=== PATIENT | male | born 1935 | race Caucasian/White ===

== ENCOUNTER 2018-10-02 07:57 | Inpatient (IN) | payer OTHER ==
[2018-09-30 15:38] LABS: Absolute Lymphocytes (CBC) 0.8 K/uL (0.7-4.9); Absolute Monocytes 0.3 K/uL (0.1-1.3); Absolute Neutrophil 4.5 K/uL (1.8-8.0); Basophils % 0.5 % (0-1.3); Hematocrit 37.2 % (39.6-49.0); Lymphocytes % 14.1 % (15.3-44.8); MPV 8.9 fL (7.6-11.3); Monocytes % 5.9 % (3.3-12.3); RBC Red Blood Cell Count 3.65 M/uL (4.33-5.43)
[2018-09-30 15:49] LABS: Potassium 4.6 mmol/L (3.5-5.1)
--- OUTSIDE RECORDS SUMMARY | 2018-10-02 08:00 | XMS REPORT | Continuity of Care Document ---
:1935 Author Organization Interface Problems Problem Status Onset Classification Date Comments Source Date Reported M54.5 - LOW BACK Active 02/28/20 [facility] PAIN 17 [place] Pneumococcus Resolved Problem 03/02/2017 [facility] infection [place] Simple obesity Active Problem 03/02/2017 [facility] Medications Medication Details Route Status Patient Ordering Order Source Instructions Provider Date Allergies, Adverse Reactions, Alerts Substance Category Reaction Severity Reaction Status Date Comments Source type Reported Bactrim Assertion Drug Active [facility] allergy [facility] morphine Assertion Drug Active [facility] allergy [place] Immunizations Immunization Date Given Site Status Last Updated Comments Source Results Order Results Value Reference Date Interpretation Comments Source Name Range Spine Spine EXAM: XR LUMBAR SPINE 4 VIEWS 02/27 - [facility] lumbar lumbar /2016 - [facility] flex/ext flex/ext 2 view 2 view DX DX DATE: 02/27/2017 3:04 PM CDT Read by: Bradley Andino MD Dictated Date/time: 02/27/17 15:35 Electronically Signed by: Bradley Andino MD 02/27/17 15:41 FINAL REPORT INDICATION: - M54.5 Low back pain M54.16 Radiculopathy, lumbar region COMPARISON: None TECHNIQUE: AP view, lateral views in neutral position, flexion and extension, of the lumbar spine FINDINGS: 5 lumbar type, non-rib bearing vertebral bodies are present. There is grade 1 anterolisthesis of L4 over L5 measuring approximately 3 mm without significant motion on flexion or extension. Moderate L4-5 disc height loss. Multilevel endplate sclerosis and marginal osteophytes are present. 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 Multilevel fa cet arthropathy, most pronounced in the lower lumbar spine. Vertebral body heights and remaining disk heights are maintained. There is diffuse osteopenia. Incompletely imaged bilateral hip arthroplasty. Gas-distended bowel loop is seen in the mid abdomen. Atherosclerotic vascular calcifications are present. IMPRESSION: Multilevel degenerative changes with moderate L4-5 disc height loss and grade 1 anterolisthesis. No significant motion on flexion or extension. Vital Signs Vital Sign Value Date Comments Source Encounters Location Location Encounter Encounter Reason Attending ADM DC Status Source Details Type Number For Provider Date Date Visit Outpatient [id number] ABRIL NICE 02/26 [place] [facility] [id number] GWENDOLYN MONTALVO 02/27 Active [facility] Out[facility] Di[facility] [id number] Gwendolyn Montalvo 02/27 02/28 [facility] [place] [facility] [id number] GWENDOLYN MONTALVO 03/12 Active [place] Procedures Procedure Code Date Perfomer Comments Source AVR - Aortic valve [id number] [facility] [place] [id number] [place] [id number] [place] [facility] [id number] [facility] [place]
--- OUTSIDE RECORDS SUMMARY | 2018-10-02 08:00 | XMS REPORT ---
:1935 [facility] [address] [place] [address] Dr. [address] [place] [id number] Care Team Providers Name Role Phone Unavailable Unavailable Unavailable Problems This patient has no known problems. Allergies, Adverse Reactions, Alerts This patient has no known allergies or adverse reactions. Medications This patient has no known medications.
--- OUTSIDE RECORDS SUMMARY | 2018-10-02 08:00 | XMS REPORT | Clinical Summary ---
:1935 Author Organization [facility] Address [address] [place] [address] Care Team Providers Name Role Phone Asked, No Pcp Primary Care Provider Unavailable Allergies Not on File Medications Not on file Active Problems Not on file Social History Tobacco Use Types Packs/Day Years Used Date Never Assessed Sex Assigned at Date Recorded Not on file Job Start Date Occupation Industry Not on file Not on file Not on file Travel History Travel Start Travel End No recent travel history available. Last Filed Vital Signs Not on file Plan of Treatment Health Maintenance Due Date Last Done Comments SHINGLES VACCINES (#1) 1986 65+ PNEUMOCOCCAL VACCINE (1 of 2 - PCV13) 2001 PNEUMOCOCCAL POLYSACCHARIDE VACCINE AGE 65 AND OVER 2001 INFLUENZA VACCINE 12/17/2018 Results Not on fileafter 10/01/2017 Insurance Payer Benefit Plan / Group Subscriber ID Type Phone Address AETNA MEDICARE AETNA MEDICARE HMO/PPO [facility] xxxxxxxx HMO Advance Directives Patient has advance care planning documents on file. For more information, please contact:[place] [phone] [place] [address]
[2018-10-02] MEDS ORDERED: METRONIDAZOLE 500mg IVPB 500 MG/100 ML BAG IV ONE (08:21)
[2018-10-02] MEDS ORDERED: NA CHLORIDE 0.9% 1,000 ML ONE (08:21)
[2018-10-02] MEDS ORDERED: CEFOXITIN/SWI 1gm 1 GM/10 ML SYR ONE (08:45)
[2018-10-02] MEDS ORDERED: FENTANYL CITR 100 MCG/2 ML ONE ×2 (08:58→10:41)
[2018-10-02] MEDS ORDERED: PROPOFOL 200 MG/20 ML VIAL IV ONE (08:58)
[2018-10-02] MEDS ORDERED: LIDOCAINE 2% MPF 5 ML VIAL ONE (08:59)
[2018-10-02] MEDS ORDERED: ROCURONIUM 50 MG/5 ML VIAL IV ONE ×2 (09:00→10:15)
[2018-10-02] MEDS ORDERED: ONDANSETRON 4 MG/2 ML VIAL ONE (09:00)
[2018-10-02] MEDS: NA CHLORIDE 0.9% 1,000 ML ONE ×2 (11:54→12:04)
[2018-10-02] MEDS ORDERED: GLYCOPYRROLATE 0.2 MG/ML SYR ONE (12:51)
[2018-10-02] MEDS ORDERED: NEOSTIGMINE 1 MG/ML -10 ML VIAL ONE (12:52)
[2018-10-02] MEDS: HYDROMORPHONE HCL 2 MG/ML inj ONE ×4 (13:17→14:11)
[2018-10-02] MEDS ORDERED: GLUCAGON 1 MG/VIAL IM PRN (14:04)
[2018-10-02] MEDS ORDERED: D50W 25 GM/50 ML SYRINGE IV PRN (14:04)
[2018-10-02] MEDS: HYDROMORPHONE HCL 1 MG/ML INJ ONE ×2 (14:25→14:52)
[2018-10-02] MEDS ORDERED: ONDANSETRON 4 MG/2 ML VIAL IV PRN (15:00)
[2018-10-02] MEDS: HYDROMORPHONE/PCA 10 MG/50 ML SYR IV PRN (15:32)
[2018-10-02] MEDS: NACHLORIDE 0.45% 1,000 ML with POTASSIUM CL 20 MEQ IV SCH ×2 (15:33)
[2018-10-02] MEDS: INSULIN -REGULAR HUMAN 50 UNIT/0.5 ML ML SQ SCH ×2 (16:30→21:00)
[2018-10-02] MEDS: METRONIDAZOLE 500mg IVPB 500 MG/100 ML BAG IV SCH ×2 (18:23→23:09)
[2018-10-02] MEDS: CEFOXITIN/SWI 1gm 1 GM/10 ML SYR IV SCH ×2 (18:23→23:09)
[2018-10-02] MEDS ORDERED: NA CHLORIDE 0.9% 500 ML IV ONE (19:08)
[2018-10-02] MEDS ORDERED: NA CHLORIDE 0.9% 250 ML IV ONE ×2 (22:36→22:39)
--- NOTE | 2018-10-03 01:32 | OP ---
Date of Procedure: 10/02/2018 Surgeon: Rob Crenshaw MD Archivist: WILLY Raines. Preoperative Diagnoses: Hepatic flexure, cancer and polyp on the splenic flexure. Postoperative Diagnoses: Hepatic flexure, cancer and polyp on the splenic flexure with extensive adh esion. Procedures Performed: Diagnostic laparoscopy, extensive lysis of adhesion, exploratory laparotomy, m obilization of the splenic flexure, right hemicolectomy, and omentectomy. Estimated Blood Loss: 100 cc. Specimen: Right hemicolectomy. Findings: At the anastomotic site from the previous surgery patient had a cancer, margins were free, and on the splenic flexure side there was a 7 cm margin and the site of the polyp removal was seen. This was done in the frozen room. Anesthesia: General. Complication: None. The patient tolerated the procedure in stable condition, taken to Recovery in g ood general condition. Procedure In Detail: The patient was brought to the OR and placed in supine position. General anest hesia was begun. The patient was prepped and draped in usual sterile fashion. Marcaine 0.5% was inf iltrated everywhere. A laparoscopic incision was made. Then 1 cm left upper quadrant incision was m anne. Subcutaneous tissue divided. Fascia was identified and divided. A #1 Vicryl stay suture was p laced. Peritoneal cavity was entered with sharp and blunt dissection. A 12 mm trocar was placed int o the peritoneal cavity and a 5 mm trocar placed in the left lower quadrant under direct vision. Lap aroscopy revealed extensive adhesions on the right side of the abdomen as well as the midline and the se were mostly omental adhesions that were taken down with the ligature without difficulty. After al l the adhesions were taken down, I converted to an open with a midline incision from the epigastrium to just below the umbilicus. Subcutaneous tissue was divided. The fascia was identified and divided . Exploratory laparotomy revealed normal GE junction, normal stomach, normal small bowel all the way from the ligament of Treitz, the duodenal sweep all the way to the anastomotic site, which was in th e hepatic flexure from the previous surgery, and there was a small palpable hard mass there. This wa s encased in a lot of scar tissue. Posteriorly the transverse colon was within normal limits. There was a blue ink spot where the patient had been tattooed for where the polyp had been removed several times. It was a very large polyp to begin with and I discussed the case prior to surgery with Dr. Gordy [place], and he stated that if possible we should try to remove that because it may develop into canc er or there may be cancer that has not been diagnosed yet and there was no other evidence of disease seen in the remainder of the colon, rectum, pelvis, retroperitoneum. Subsequently then the old trans verse colon was mobilized in the standard fashion utilizing ligature. For the bigger vessels clamps were used with 3-0 silk and 2-0 silk ties. The splenic flexure was completely mobilized. This requi red approximately an hour of dissection. White line of Toldt was divided on the left side of the elías cending colon and this was mobilized as well. After complete mobilization of the splenic flexure and hepatic flexure was done then Endo-JULISSA stapling device was used to divide the small bowel distally a nd proximally 8-9 cm away from the anastomotic site and 6-7 cm away from the polyp site and then the mesentery was divided with ligature and clamps were used in the bigger blood vessels including the mi ddle colic vessel and adequate dissection of the mesentery was done for adequate surgical margins for the lymphatics and then the entire specimen was removed and taken to the frozen lab with pathologist 's assistance. The specimen was examined and the margins were free. The entire abdomen was irrigate d and then an antimesenteric standard anastomosis was made between the descending colon and the termi nal ileum utilizing JULISSA 75. The open end was closed with a TA 55. A 3-0 silk was used to take the t ension off the anastomosis and the mesenteric defect was closed with interrupted melsog-wv-mwmvi 3-0 chromic sutures. Anatomically the entire abdomen was examined carefully. Everything was placed back in its anatomic location the best way possible and then all counts were correct. Irrigation was tracy ar. There was no evidence of bleeding. No bowel injury appreciated. Stay sutures were tied to each other to approximate the fascial defect in the left upper quadrant and #2 nylon was used to close th e midline fascia in the standard fashion. Subcutaneous wounds were irrigated, bleeding controlled wi th cautery. A 3-0 chromic was used to approximate the subcutaneous tissue and mariola used to close the skin. Sterile dressing was applied. The patient was awakened and taken to Recovery in good gene ral condition. /MODL Voice ID: [id number] Report ID: [id number]
[2018-10-03] MEDS ORDERED: NA CHLORIDE 0.9% 250 ML IV ONE (03:13)
[2018-10-03] MEDS: NACHLORIDE 0.45% 1,000 ML with POTASSIUM CL 20 MEQ IV SCH ×2 (03:51)
[2018-10-03] MEDS: CEFOXITIN/SWI 1gm 1 GM/10 ML SYR IV SCH ×2 (05:28→18:13)
[2018-10-03] MEDS: METRONIDAZOLE 500mg IVPB 500 MG/100 ML BAG IV SCH (05:28)
[2018-10-03 06:37] LABS: Absolute Lymphocytes (CBC) 0.6 K/uL (0.7-4.9); Absolute Monocytes 0.6 K/uL (0.1-1.3); Absolute Neutrophil 11.7 K/uL (1.8-8.0); Basophils % 0.6 % (0-1.3); Hematocrit 35.3 % (39.6-49.0); Lymphocytes % 4.6 % (15.3-44.8); MPV 8.9 fL (7.6-11.3); Monocytes % 4.6 % (3.3-12.3); RBC Red Blood Cell Count 3.43 M/uL (4.33-5.43)
[2018-10-03 06:39] LABS: Bilirubin Total 0.5 mg/dL (0.2-1.0); Magnesium 2.2 mg/dL (1.8-2.4); Phosphorus 3.7 mg/dL (2.5-4.9); Protein, Total 6.3 g/dL (6.4-8.2)
[2018-10-03] MEDS: INSULIN -REGULAR HUMAN 50 UNIT/0.5 ML ML SQ SCH ×4 (07:30→20:33)
[2018-10-03 08:15] LABS: Blood Morphology Comment NOT SEEN (NOT SEEN); Platelet Estimate ADEQ; Urine White Blood Cell Casts OK
--- NOTE | 2018-10-03 08:58 | RAD REPORT ---
EXAM DESCRIPTION: Nicole Single View10/03/2018 8:46 am CLINICAL HISTORY: Chest pain COMPARISON: June 2018 FINDINGS: A chronic small right pleural effusion. Left base is hazy which may indicate a mild pneumonia Heart is mildly enlarged. Postsurgical changes involve the chest
[2018-10-03] MEDS ORDERED: NACHLORIDE 0.45% 1,000 ML IV SCH ×2 (09:00→23:00)
[2018-10-03] MEDS ORDERED: NA CHLORIDE 0.9% 250 ML IV SCH (09:00)
[2018-10-03 09:21] LABS: Absolute Lymphocytes (CBC) 0.7 K/uL (0.7-4.9); Absolute Monocytes 0.5 K/uL (0.1-1.3); Absolute Neutrophil 10.7 K/uL (1.8-8.0); Basophils % 0.2 % (0-1.3); Eosinophils % 0.1 % (0-4.4); Hematocrit 36.1 % (39.6-49.0); Lymphocytes % 6.1 % (15.3-44.8); MPV 8.9 fL (7.6-11.3); Monocytes % 4.3 % (3.3-12.3); RBC Red Blood Cell Count 3.49 M/uL (4.33-5.43)
[2018-10-03 09:26] LABS: Albumin 2.9 g/dL (3.4-5.0); Bilirubin Direct 0.2 mg/dL (0-0.2); Bilirubin Total 0.5 mg/dL (0.2-1.0); Potassium 5.1 mmol/L (3.5-5.1); Protein, Total 6.3 g/dL (6.4-8.2)
[2018-10-03] MEDS: SODIUM CHLORIDE 0.9% 10ML INJ IV SCH (09:34)
[2018-10-03] MEDS: PANTOPRAZOLE 40 MG INJ IV SCH (09:34)
[2018-10-03 10:02] LABS: Urine Appearance CLEAR; Urine Bilirubin NEGATIVE (NEG); Urine Blood 2+ (NEG); Urine Color DK YELLOW; Urine Glucose NEGATIVE (NEG); Urine Protein 1+ (NEG); Urine Specific Gravity >=1.030 (1.005-1.030); Urine Urobilinogen 0.2 mg/dL (0.2-1.0)
[2018-10-03 10:06] LABS: Urine Microscopic Reflex ORDER UMIC
[2018-10-03 10:12] LABS: Urine Bacteria 20-50 /HPF (NONE SEEN); Urine Coarse Granular Casts 0-5 /LPF (NONE SEEN); Urine Culture Reflex Order REFLEXED; Urine RBC <5 /HPF (NONE SEEN)
[2018-10-03] MEDS: HYDROMORPHONE HCL 1 MG/ML INJ IV PRN ×2 (10:44→23:29)
[2018-10-03] MEDS: ENOXAPARIN 40 MG/0.4 ML SQ SCH (10:44)
[2018-10-03] MEDS: PHENOL 1.4% ORAL SPRAY 180ML MM PRN ×3 (10:49→20:32)
[2018-10-03] MEDS ORDERED: CEFOXITIN SODIUM 1 GM/VIAL IVPB SCH (12:00)
[2018-10-03 12:36] LABS: Potassium 5.1 mmol/L (3.5-5.1)
[2018-10-03] MEDS ORDERED: ALBUTEROL 2.5 MG/3 ML NEB SOL NEB PRN (13:19)
[2018-10-03] MEDS ORDERED: IPRATROPIUM BROM 0.5MG/2.5ML NEB PRN (13:21)
[2018-10-03] MEDS ORDERED: IPRATROPIUM BROM 0.5MG/2.5ML NEB SCH (14:00)
[2018-10-03] MEDS ORDERED: ALBUTEROL 2.5 MG/3 ML NEB SOL NEB SCH (14:00)
[2018-10-03] MEDS ORDERED: FUROSEMIDE 20 MG/ 2ML VIAL IV ONE (14:52)
--- NOTE | 2018-10-03 15:38 | PN ---
Date of Progress Note: 10/03/2018 Subjective: The patient is awake and alert, complaining of a sore throat and incisional pain. His v ital signs show heart rate between 100 and 106, otherwise his vitals are stable. He is afebrile. Ur ine output has been marginal. Had been given fluid bolus last night and another one is ordered this morning. His white count is 13. His H and H are stable. NG tube output noted. His abdomen is soft . Hypoactive bowel sounds. Dressing is clean, dry, and intact. Assessment: Status post left hemicolectomy. Recommendations: Monitor urine output carefully, and treat with fluids and diuretics as needed per Gavin Gunter. We will continue the IV antibiotics for right now. Continue n.p.o., NG tube, IV antibio tics. Encourage incentive spirometry. We will have a Chloraseptic spray for the throat pain. Gerry wray pain management, physical therapy consultation. The patient clinically is stable and doing stephanie douglas /MODL Voice ID: [id number] Report ID: [id number]
--- NOTE | 2018-10-03 18:05 | PN ---
Date of Progress Note: 10/03/2018 The patient seems to be holding his own. His creatinine has now dropped just below 2. Feels probabl y a fluid problem with hydration. Although in the past his creatinine has fluctuated some, it has no t been significant enough to see a career services director. The other problem that he is now coughing up some p urulent-looking material. This will be cultured for Gram stain, and we will add Zithromax to the reg imen, until the sensitivities are back he can continue with Mefoxin. We can start the updrafts with albuterol and do his blood work on a q.12 basis. HR/MODL Voice ID: [id number] Report ID: [id number]
[2018-10-03] MEDS: AZITHROMYCIN IV 500 MG in NA CHLORIDE 0.9% 250 ML IVPB SCH (18:13)
[2018-10-03 21:48] LABS: Absolute Lymphocytes (CBC) 0.5 K/uL (0.7-4.9); Absolute Monocytes 0.5 K/uL (0.1-1.3); Absolute Neutrophil 10.6 K/uL (1.8-8.0); Basophils % 0.3 % (0-1.3); Eosinophils % 0.2 % (0-4.4); Hematocrit 32.9 % (39.6-49.0); Lymphocytes % 4.3 % (15.3-44.8); MPV 8.8 fL (7.6-11.3); Monocytes % 4.4 % (3.3-12.3); RBC Red Blood Cell Count 3.17 M/uL (4.33-5.43)
[2018-10-03 22:05] LABS: Magnesium 2.4 mg/dL (1.8-2.4); Potassium 4.9 mmol/L (3.5-5.1)
[2018-10-03] MEDS: TEMAZEPAM 15 MG CAP PO PRN (22:24)
[2018-10-04] MEDS: PHENOL 1.4% ORAL SPRAY 180ML MM PRN (04:12)
[2018-10-04 06:30] LABS: Absolute Lymphocytes (CBC) 0.6 K/uL (0.7-4.9); Absolute Monocytes 0.4 K/uL (0.1-1.3); Absolute Neutrophil 9.2 K/uL (1.8-8.0); Basophils % 0.2 % (0-1.3); Eosinophils % 0.8 % (0-4.4); Hematocrit 32.9 % (39.6-49.0); Lymphocytes % 5.4 % (15.3-44.8); MPV 8.7 fL (7.6-11.3); Monocytes % 4.2 % (3.3-12.3); RBC Red Blood Cell Count 3.19 M/uL (4.33-5.43)
[2018-10-04 06:47] LABS: Magnesium 2.4 mg/dL (1.8-2.4); Phosphorus 2.7 mg/dL (2.5-4.9); Potassium 4.6 mmol/L (3.5-5.1)
[2018-10-04] MEDS: INSULIN -REGULAR HUMAN 50 UNIT/0.5 ML ML SQ SCH ×4 (07:30→21:00)
[2018-10-04 08:20] LABS: Blood Morphology Comment NOT SEEN (NOT SEEN); Platelet Estimate ADEQ
[2018-10-04] MEDS ORDERED: FUROSEMIDE 20 MG/ 2ML VIAL IV ONE (09:11)
[2018-10-04] MEDS: CEFOXITIN/SWI 1gm 1 GM/10 ML SYR IV SCH ×2 (09:47→21:56)
[2018-10-04] MEDS: ENOXAPARIN 40 MG/0.4 ML SQ SCH (09:47)
[2018-10-04] MEDS: PANTOPRAZOLE 40 MG INJ IV SCH (09:48)
[2018-10-04] MEDS: SODIUM CHLORIDE 0.9% 10ML INJ IV SCH (09:48)
[2018-10-04] MEDS: D5 0.45 NS 1,000 ML IV SCH (11:56)
--- NOTE | 2018-10-04 12:37 | RAD REPORT ---
EXAM DESCRIPTION: RAD - Chest Single View - 10/04/2018 5:11 am CLINICAL HISTORY: f/u Chest pain. COMPARISON: Chest Single View dated 10/03/2018; Chest Pa And Lat (2 Views) dated 07/07/2018; Chest Pa And Lat (2 Views) dated 05/26/2017; Chest Single View dated 04/15/2017 FINDINGS: Portable technique limits examination quality. The lungs are grossly clear. Small bilateral pleural effusions noted. The heart is moderately enlarge d in size with sternotomy wires present. Enteric tube is incompletely visualized.
--- NOTE | 2018-10-04 13:27 | CON ---
Date of Consultation: 10/04/2018 Reason For Consult: Acute renal insufficiency. History Of Present Illness: Mr. Zayas is an 83-year-old very pleasant gentleman with past medical h istory significant for history of colon surgery in the past with aortic valve replacement, who presen di to [facility] complaining of abdominal pain and discomfort. He underwent lysis of adhes ions in the hepatic flexure with diagnostic laparoscopy, exploratory laparotomy, mobilization of the splenic flexure, right hemicolectomy and omentectomy. He has been in the ICU postoperatively and he was noted to have oliguria and increased creatinine and hence Nephrology is being consulted for furth er evaluation. The patient received some IV fluids and also a dose of Lasix last night, which improv ed his urine output significantly and he is putting out about at least 50-60 cc of urine per hour at this time. He denies any shortness of breath and he feels pretty good at this time. Past Medical History: Significant for history of coronary artery disease, diabetes, colon cancer wit h history of colon resection, aortic valve replacement, BPH. Past Surgical History: Significant for history of bilateral hip replacement, laminectomy in the cerv ical region, shoulder surgery. Allergies: ALLERGIC TO BACTRIM, MORPHINE, SULFUR. Social History: He does not smoke and denies any alcohol use. Lives with his family and usually use s a walker to walk. Review of Systems: Positive for some weakness and lethargy, and complaining of some abdominal soreness, but denies any o ther complaints. All other review of systems are negative. Physical Examination: Vital signs: At this time are showing temperature of 98.4, pulse rate of 102, respiratory rate of 12 , and blood pressure 140/57. General: He appears in no acute distress. HEENT: Atraumatic head. Neck: No JVD was noted. Heart: Auscultation of the heart revealed regular rate and rhythm. Abdomen: Soft but nontender. Bowel sounds were sluggish. Extremities: Showed about 1+ edema in bi lateral lower extremities. Genitourinary: He has a Guerrero catheter in place and good amount of urine output was noted. Laboratory Data: At this time are showing sodium of 141, potassium of 4.6, chloride of 110, BUN of 3 7 and creatinine of 1.79, which has improved significantly from 2.07. Baseline creatinine is around 1.2 and it has gotten worsened to up to 2.3 previously, postoperatively likely related to ATN. CBC s howing WBC count of 10.3, hemoglobin of 11, hematocrit of 32.9, platelet count of 171. Current Medications: Include half-normal saline at 50 cc an hour. He has received one dose of 20 mg of IV Lasix x1 yesterday, cefoxitin 1 g every 12 hours, azithromycin, Lovenox for deep vein thrombos is prophylaxis, Dilaudid p.r.n. for pain and Temazepam at bedtime. Diagnostic Data: A chest x-ray done yesterday is showing chronic right small pleural effusion with l eft base opacity. Impression: 1.Acute renal failure secondary to acute tubular necrosis postoperatively likely related to hemodyna boy fluctuations leading to oliguria; however, oliguria is significantly better and creatinine is als o trending down. His volume status seems stable. He is given IV fluids, however, in order to avoid volume overload. I will give him another dose of Lasix to keep him flushed and keep his volume statu s euvolemic. 2.Exploratory laparotomy secondary to bowel obstruction and lysis of adhesions. The patient's bowel sounds are still hypoactive. Defer further management to Dr. Crenshaw. 3.Hypertension, currently stable. I agree with holding antihypertensives to prevent further drops i n blood pressure. 4.Congestive heart failure seems compensated at this time. Continue IV fluids and intermittently La six as needed. 5.Anemia secondary to chronic disease, currently stable. No need for blood transfusion. 6.Debility and weakness. Will need physical therapy and occupational therapy and monitor close lito toring. Plan: Patient is overall doing okay. Renal function is improving. I will continue with the IV flui ds and give him intermittent dose of Lasix to keep urine output stable. His volume status also seems to be stable. Antibiotics have been adjusted for renal function. Avoid further hypotension and nep hrotoxins. Advanced diet as tolerated and follow up closely. Thank you very much for this consultation. Please do not hesitate to call us with any questions or c oncerns. VV/MODL Voice ID: [id number] Report ID: [id number]
--- NOTE | 2018-10-04 14:00 | PN ---
Date of Progress Note: 10/04/2018 Subjective: The patient is awake and alert, feels better today. Objective: Vital Signs: Stable. Heart: Rate is slightly elevated. Abdomen: Benign. He did get some Lasix yesterday and he is afebrile. His urine output has improved with the Lasix. Gavin Dodge is following him for that. NG tube put out 400 cc. Laboratory Data: Reviewed. His white count is 10.3. Left shift is improving. Chemistry reviewed. Creatinine is improving. Assessment: Status post left hemicolectomy. Recommendations: Continue n.p.o., NG tube, IV fluids. Per renal service antibiotics and encourage a mbulation, DVT prophylaxis, incentive spirometry. From a surgical standpoint, he can be transferred to the floor. We will leave it up to the renal and the medical service. /MODL Voice ID: [id number] Report ID: [id number]
--- NOTE | 2018-10-04 15:00 | PN ---
Date of Progress Note: 10/04/2018 Subjective: Hospitalist service covering for Dr. Gnuter's while he is out of town. The patient is seen and examined. Chart reviewed and case discussed with RN. The patient seems to be doing better. Does not complain of any significant pain. Urine output has been on the low side. He is to be seen by Nephrology today. Medications: List reviewed. Code Status: Full. Physical Examination: Vital Signs: Temperature 98.4, heart rate 100, blood pressure 126/54, respirations 12, O2 99% on room air. General: Awake, alert, and oriented x3. Elderly male, obese, somewhat ill- appearing. CV: S1, S2. Peripheral pulses present. Sinus tachycardia. Respiratory: Diminished breath sounds at the bases. No wheezing. Gastrointestinal: Abdomen is soft, nondistended. Currently has NG tube with suctioning. Incision site clean, dry, intact. Extremities: No clubbing or cyanosis. The patient has peripheral edema. Neurologic: Nonfocal. Laboratory Data: Sodium 141, potassium 4.6, chloride 110, CO2 24, BUN 37, creatinine 1.79, glucose 71, calcium 7.8, phosphorus 2.7, magnesium 2.4. WBC 10.3, H and H 11 and 32.9, platelets 171, neutrophils 89%. Blood cultures and urine culture show no growth to date. Sputum culture is pending. Assessment And Plan: An 83-year-old male with, 1. Recurrent colon cancer, status post diagnostic laparoscopy, extensive lysis of adhesions, right hemicolectomy, and omentectomy. Management per Dr. Crenshaw. 2. Acute kidney injury, improving with IV fluids. Nephrology has been consulted. We will continue to monitor, avoid NSAIDs and nephrotoxins. 3. Diabetes mellitus type 2, upu-hirbmmg-cgcdvfrlf with hyperglycemia. We will continue sliding scale insulin and monitor blood glucose levels. 4. Coronary artery disease, ambler artery and ambler heart without angina. 5. Obesity, BMI 32.7. Plan: Continue monitoring in ICU setting. Monitor urine output. Continue antibiotics. GI and DVT prophylaxis addressed. The patient is on Lovenox and PPI. Dr. Gunter to resume care on Friday SA/MODL Voice ID: [id number] Report ID: [id number] [facility]
[2018-10-04] MEDS: AZITHROMYCIN IV 500 MG in NA CHLORIDE 0.9% 250 ML IVPB SCH (16:42)
[2018-10-04] MEDS: CEPACOL LOZENGES PO PRN (18:22)
[2018-10-04] MEDS: TEMAZEPAM 15 MG CAP PO PRN (21:56)
[2018-10-05] MEDS: HYDROMORPHONE/PCA 10 MG/50 ML SYR IV PRN (04:56)
[2018-10-05 05:22] LABS: Absolute Lymphocytes (CBC) 0.4 K/uL (0.7-4.9); Absolute Monocytes 0.3 K/uL (0.1-1.3); Absolute Neutrophil 6.8 K/uL (1.8-8.0); Basophils % 0.4 % (0-1.3); Eosinophils % 2.3 % (0-4.4); Hematocrit 32.9 % (39.6-49.0); Lymphocytes % 5.7 % (15.3-44.8); MPV 8.6 fL (7.6-11.3); Monocytes % 4.3 % (3.3-12.3); RBC Red Blood Cell Count 3.21 M/uL (4.33-5.43)
[2018-10-05] MEDS: INSULIN -REGULAR HUMAN 50 UNIT/0.5 ML ML SQ SCH ×3 (06:00→18:00)
[2018-10-05 06:24] LABS: Magnesium 2.2 mg/dL (1.8-2.4); Potassium 4.1 mmol/L (3.5-5.1)
[2018-10-05] MEDS: CEFOXITIN/SWI 1gm 1 GM/10 ML SYR IV SCH ×2 (08:42→21:15)
[2018-10-05] MEDS: PANTOPRAZOLE 40 MG INJ IV SCH (08:42)
[2018-10-05] MEDS: ENOXAPARIN 40 MG/0.4 ML SQ SCH (08:42)
[2018-10-05] MEDS: SODIUM CHLORIDE 0.9% 10ML INJ IV SCH (08:43)
[2018-10-05] MEDS: CEPACOL LOZENGES PO PRN (09:34)
--- NOTE | 2018-10-05 15:55 | PN ---
The patient continues to do remarkably well. The chest is clear. Has some slight cough, but it is n on-purulent. His renal function is improved markedly. His therapy is going quite well. HR/MODL Voice ID: [id number] Report ID: [id number]
[2018-10-05] MEDS: AZITHROMYCIN IV 500 MG in NA CHLORIDE 0.9% 250 ML IVPB SCH (16:27)
[2018-10-05] MEDS: D5 0.45 NS 1,000 ML IV SCH (16:27)
--- NOTE | 2018-10-05 16:58 | P.PN ---
Date of Service: 10/05/18 Vital Signs Temp Pulse Resp BP Pulse Ox 97.7 F 77 17 174/74 H 97 10/05/18 16:00 10/05/18 16:00 10/05/18 16:00 10/05/18 16:00 10/05/18 16:00 Medications Cetylpyridinium Chloride/Menthol (Cepacol Lozenges) 1 danish PO BIDP PRN PRN Reason: COUGH Stop: 11/03/18 17:59 Last Admin: 10/05/18 09:34 Dose: 1 danish Dextrose (Dextrose 50% Syringe) 12.5 gm IV PRN PRN; Protocol PRN Reason: HYPOGLYCEMIA Stop: 11/01/18 14:05 Last Admin: 10/04/18 11:21 Dose: 12.5 gm Enoxaparin Sodium (Lovenox 40 Mg Inj) 40 mg SQ DAILY [facility] Stop: 11/02/18 09:01 Last Admin: 10/05/18 08:42 Dose: 40 mg Glucagon (Glucagen) 1 mg IM 1X PRN; Protocol PRN Reason: HYPOGLYCEMIA Stop: 11/01/18 14:05 Hydromorphone HCl (Dilaudid) 1 mg IV Q2HP PRN PRN Reason: Breakthrough pain scale > 5 Stop: 11/01/18 15:01 Last Admin: 10/03/18 23:29 Dose: 1 mg Hydromorphone HCl (Dilaudid Brake Lining Curer 10 Mg/50 Ml (Brake Lining Curer Syringe)) 10 mg in 50 mls @ 0 mls/hr IV UD PRN PRN Reason: Pain scale 8-10 (Severe) Stop: 11/01/18 15:01 Last Admin: 10/05/18 04:56 Dose: 50 mls Cefoxitin Sodium (Mefoxin 1 Gm/10 Ml Swi Ivp) 1 gm in 10 mls @ 200 mls/hr IV Q12HR [facility] Stop: 11/02/18 18:01 Last Admin: 10/05/18 08:42 Dose: 10 mls Azithromycin 500 mg/ Sodium (Chloride) 250 mls @ 250 mls/hr IVPB 1700 [facility]; Protocol Stop: 11/02/18 17:01 Last Admin: 10/05/18 16:27 Dose: 250 mls Dextrose/Sodium Chloride (Dextrose 5% O.45% Saline) 1,000 mls @ 40 mls/hr IV .Q25H [facility] Stop: 11/03/18 12:01 Last Admin: 10/05/18 16:27 Dose: 1,000 mls Insulin Human Regular (Novolin -R) 0 unit SQ Q6H [facility]; Protocol Stop: 11/04/18 06:01 Last Admin: 10/05/18 12:00 Dose: Not Given Ipratropium [place] (Atrovent Neb) 0.5 mg NEB [id number] PRN PRN Reason: sob Stop: 11/02/18 14:01 Ondansetron HCl (Zofran) 4 mg IV Q6HP PRN PRN Reason: NAUSEA / VOMITING Stop: 11/01/18 15:01 Pantoprazole Sodium (Protonix Inj) 40 mg IV DAILY [facility] Stop: 11/02/18 09:01 Last Admin: 10/05/18 08:42 Dose: 40 mg Phenol (Phenaseptic [place]) 2 appl MM Q4H PRN PRN Reason: SORE THROAT Stop: 11/02/18 10:30 Last Admin: 10/04/18 04:12 Dose: 2 appl Sodium Chloride (Sodium Chloride 10 Ml Inj) 10 ml IV DAILY [facility] Stop: 11/02/18 09:01 Last Admin: 10/05/18 08:43 Dose: 10 ml Temazepam (Restoril) 15 mg PO BEDTIME PRN PRN PRN Reason: INSOMNIA Stop: 11/02/18 21:06 Last Admin: 10/04/18 21:56 Dose: 15 mg Lab Results (last 24 hrs) 10/05/18 11:37: POC Glucose 157 H 10/05/18 05:46: POC Glucose 129 H 10/05/18 04:43: Sodium 141, Potassium 4.1, Chloride 109 H, Carbon Dioxide 23, BUN 30 H, Creatinine 1.38 H, Estimated GFR 49 L, Glucose 123 H, Calcium 8.0 L, Magnesium 2.2 10/05/18 04:43: WBC 7.8 D, RBC 3.21 L, Hgb 11.1 L, Hct 32.9 L, MCV 102.3 H, MCH 34.6, MCHC 33.8, RDW 13.1, Plt Count 178, MPV 8.6, Neutrophils % 87.3 H, Lymphocytes % 5.7 L, Monocytes % 4.3, Eosinophils % 2.3, Basophils % 0.4, Absolute Neutrophils 6.8, Absolute Lymphocytes 0.4 L, Absolute Monocytes 0.3, Absolute Eosinophils 0.2, Absolute Basophils 0.0 10/04/18 23:55: POC Glucose 115 10/04/18 21:58: POC Glucose 113 Microbiology Results 10/04/18 05:00 Sputum Gram Stain - Final 10/04/18 05:00 Sputum Culture & Sensitivity - Preliminary 10/03/18 09:25 Catheterized Urine [place] Count - Final 10/03/18 09:25 Catheterized Urine - Final 10/03/18 08:52 Blood - Blood Aerobic Blood Culture - Preliminary No growth in 24 hours. 10/03/18 08:52 Blood - Blood Anaerobic Blood Culture - Final Assessment/ Plan: Nephrology. Feeling better today. Sore throat. Wants the NGT out. No acute events overnight. Good urine output. Vitals, medications, blood work and imaging reviewed in the chart. NAD. NGT. MMM. Neck supple. CTA. RRR. Abd binder, tender. Hip edema 1+. No C/C. AAO. Normal speech. Guerrero with med to light urine. EXAM DESCRIPTION: RAD - Chest Single View - 10/05/2018 7:16 am CLINICAL HISTORY: Chest pain, shortness of breath, dyspnea COMPARISON: March 2018 TECHNIQUE: AP portable chest image was obtained 0715 hours . FINDINGS: No peripheral mass or consolidation. Interstitial and some scattered alveolar opacities are present in the lung [place], more so in the medial right base. Dialysis catheter is in place. Left hemidiaphragm elevation again noted. Heart and vasculature are normal. No measurable pleural effusion and no pneumothorax. No acute bony abnormality seen. No acute aortic findings suspected. IMPRESSION: Interstitial and alveolar opacification more so on the right lung base. Volume overload is favored over cardiac decompensation. Right base pneumonia is not excluded but lesser in likelihood as well. A/ ADEOLA, improving. Hyperkalemia. CKD III with proteinuria. 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 Diastolic CHF, chronic. Anemia in chronic illness. Macrocytic. Hypocalcemia. Moderate malnutrition. P/ Continue current POC and Medications. Gentle IVF while NPO. Monitor electrolytes. Follow up with surgery. No NSAIDs. AM labs. Daily weight.
[2018-10-05 18:46] LABS: Absolute Lymphocytes (CBC) 0.6 K/uL (0.7-4.9); Absolute Monocytes 0.4 K/uL (0.1-1.3); Absolute Neutrophil 6.4 K/uL (1.8-8.0); Basophils % 0.5 % (0-1.3); Eosinophils % 1.9 % (0-4.4); Hematocrit 34.8 % (39.6-49.0); Lymphocytes % 7.8 % (15.3-44.8); MPV 8.2 fL (7.6-11.3); Monocytes % 5.6 % (3.3-12.3); RBC Red Blood Cell Count 3.35 M/uL (4.33-5.43)
--- NOTE | 2018-10-05 19:34 | PN ---
Date of Progress Note: 10/05/2018 Subjective: The patient is awake, alert. No complaint. No flatus. Objective: Vital Signs: Stable, afebrile. Urine output adequate. Laboratory Data: Reviewed. Abdomen benign. Wound is clean, dry and intact. Hypoactive bowel sound s. Assessment: Status post right hemicolectomy. Recommendations: Continue n.p.o., NG tube, IV fluid, IV antibiotics. Fluid management per the renal service. Encourage ambulation. Incentive spirometry, DVT prophylaxis. The patient clinically verenan cassandra kam. /MODL Voice ID: [id number] Report ID: [id number]
[2018-10-05] MEDS: TEMAZEPAM 15 MG CAP PO PRN (21:17)
[2018-10-06 03:48] LABS: UR MICROALBUMIN 31.7 mg/dL (< 1.9)
[2018-10-06 03:56] LABS: Urine Appearance CLEAR; Urine Bilirubin NEGATIVE (NEG); Urine Blood 1+ (NEG); Urine Color YELLOW; Urine Glucose TRACE (NEG); Urine Protein 2+ (NEG); Urine Urobilinogen 0.2 mg/dL (0.2-1.0); Urine pH 5.5 (5.0-7.0)
[2018-10-06 04:06] LABS: Urine Bacteria 20-50 /HPF (NONE SEEN); Urine Culture Reflex Order NOT NEEDED; Urine RBC NONE SEEN /HPF (NONE SEEN)
[2018-10-06 06:16] LABS: Albumin 2.4 g/dL (3.4-5.0); Bilirubin Total 0.5 mg/dL (0.2-1.0); Magnesium 2.2 mg/dL (1.8-2.4); Phosphorus 1.9 mg/dL (2.5-4.9); Potassium 4.1 mmol/L (3.5-5.1); Protein, Total 6.1 g/dL (6.4-8.2); Uric Acid 7.7 mg/dL (3.5-7.2)
[2018-10-06] MEDS: INSULIN -REGULAR HUMAN 50 UNIT/0.5 ML ML SQ SCH ×4 (06:25→18:00)
[2018-10-06] MEDS ORDERED: POTASSIUM PHOS IN 0.9 % NACL 15 MMOL/250 ML BAG IV ONE (08:00)
[2018-10-06] MEDS: PHENOL 1.4% ORAL SPRAY 180ML MM PRN (08:35)
[2018-10-06] MEDS: CEFOXITIN/SWI 1gm 1 GM/10 ML SYR IV SCH (08:35)
[2018-10-06] MEDS: ENOXAPARIN 40 MG/0.4 ML SQ SCH ×2 (08:36→08:47)
[2018-10-06] MEDS: SODIUM CHLORIDE 0.9% 10ML INJ IV SCH (08:36)
[2018-10-06] MEDS: PANTOPRAZOLE 40 MG INJ IV SCH (08:36)
--- NOTE | 2018-10-06 12:23 | PN ---
Date of Progress Note: 10/06/2018 Subjective: The patient is awake, alert. No complaints. States that the NG tube is bothering his b ack of his throat severely. NG tube then put out too much last 24 hours. He does have bowel sounds. He has not had a bowel movement. Objective: Vital Signs: Stable. Afebrile. Abdomen: Benign. Assessment: Status post extended right hemicolectomy. Recommendations: We will go ahead and discontinue the NG tube and is very uncomfortable for the winnie ent. We just keep him on sips of clear liquids. Encourage ambulation, incentive spirometry and DVT prophylaxis. /MODL Voice ID: [id number] Report ID: [id number]
--- NOTE | 2018-10-06 15:26 | PN ---
Date of Progress Note: 10/06/2018 The patient seems to the improving somewhat today as far as his surgery was concerned, and he has had his NG tube removed, and started on some clear liquids. Culture reveals Serratia. We will modify h is antibiotic treatment. However, he also had some elevated blood pressure, which is I suspect secon william to pain. If this persists, we will increase his analgesics as well. Creatinine has improved co nsiderably. Progress note on 10/06, for a Erika and sana HR/MODL Voice ID: [id number] Report ID: [id number]
[2018-10-06] MEDS: levoFLOXacin 750 MG TAB PO SCH (17:24)
[2018-10-06] MEDS: D5 0.45 NS 1,000 ML IV SCH (17:46)
--- NOTE | 2018-10-06 21:59 | P.PN ---
Date of Service: 10/06/18 Vital Signs Temp Pulse Resp BP Pulse Ox 98.3 F 80 15 168/72 H 98 10/06/18 16:00 10/06/18 16:00 10/06/18 16:00 10/06/18 16:00 10/06/18 16:00 Medications Cetylpyridinium Chloride/Menthol (Cepacol Lozenges) 1 danish PO BIDP PRN PRN Reason: COUGH Stop: 11/03/18 17:59 Last Admin: 10/05/18 09:34 Dose: 1 danish Dextrose (Dextrose 50% Syringe) 12.5 gm IV PRN PRN; Protocol PRN Reason: HYPOGLYCEMIA Stop: 11/01/18 14:05 Last Admin: 10/04/18 11:21 Dose: 12.5 gm Enoxaparin Sodium (Lovenox 40 Mg Inj) 40 mg SQ DAILY [facility] Stop: 11/02/18 09:01 Last Admin: 10/06/18 08:47 Dose: Not Given Glucagon (Glucagen) 1 mg IM 1X PRN; Protocol PRN Reason: HYPOGLYCEMIA Stop: 11/01/18 14:05 Hydromorphone HCl (Dilaudid) 1 mg IV Q2HP PRN PRN Reason: Breakthrough pain scale > 5 Stop: 11/01/18 15:01 Last Admin: 10/03/18 23:29 Dose: 1 mg Hydromorphone HCl (Dilaudid Technical Specialist 10 Mg/50 Ml (Technical Specialist Syringe)) 10 mg in 50 mls @ 0 mls/hr IV UD PRN PRN Reason: Pain scale 8-10 (Severe) Stop: 11/01/18 15:01 Last Admin: 10/05/18 04:56 Dose: 50 mls Dextrose/Sodium Chloride (Dextrose 5% O.45% Saline) 1,000 mls @ 40 mls/hr IV .Q25H [facility] Stop: 11/03/18 12:01 Last Admin: 10/06/18 17:46 Dose: 1,000 mls Insulin Human Regular (Novolin -R) 0 unit SQ Q6H [facility]; Protocol Stop: 11/04/18 06:01 Last Admin: 10/06/18 18:00 Dose: Not Given Ipratropium [place] (Atrovent Neb) 0.5 mg NEB [id number] PRN PRN Reason: sob Stop: 11/02/18 14:01 Levofloxacin (Levaquin) 750 mg PO 1700 [facility] Stop: 11/05/18 17:01 Last Admin: 10/06/18 17:24 Dose: 750 mg Ondansetron HCl (Zofran) 4 mg IV Q6HP PRN PRN Reason: NAUSEA / VOMITING Stop: 11/01/18 15:01 Pantoprazole Sodium (Protonix Inj) 40 mg IV DAILY [facility] Stop: 11/02/18 09:01 Last Admin: 10/06/18 08:36 Dose: 40 mg Phenol (Phenaseptic [place]) 2 appl MM Q4H PRN PRN Reason: SORE THROAT Stop: 11/02/18 10:30 Last Admin: 10/06/18 08:35 Dose: 2 appl Sodium Chloride (Sodium Chloride 10 Ml Inj) 10 ml IV DAILY [facility] Stop: 11/02/18 09:01 Last Admin: 10/06/18 08:36 Dose: 10 ml Temazepam (Restoril) 15 mg PO BEDTIME PRN PRN PRN Reason: INSOMNIA Stop: 11/02/18 21:06 Last Admin: 10/05/18 21:17 Dose: 15 mg Lab Results (last 24 hrs) 10/06/18 18:35: POC Glucose 142 H 10/06/18 11:03: POC Glucose 152 H 10/06/18 05:47: POC Glucose 161 H 10/06/18 05:29: Sodium 144, Potassium 4.1, Chloride 111 H, Carbon Dioxide 24, BUN 25 H, Creatinine 1.15, Estimated GFR 61 L, Glucose 157 H, Uric Acid 7.7 H, Calcium 8.0 L, Phosphorus 1.9 L, Magnesium 2.2, Total Bilirubin 0.5, AST 11 L, ALT 14, Alkaline Phosphatase 59, NT-Pro-B Natriuret Pep 1469 H, Serum Total Protein 6.1 L, Albumin 2.4 L, Globulin 3.7 H, Albumin/Globulin Ratio 0.6 L 10/06/18 03:00: Ur Random Microalbumin 31.7 H, Urine Creatinine 145.0, Microalb/ Creat Ratio 218.6 H 10/06/18 03:00: Urine Color Yellow, Urine Appearance Clear, Urine pH 5.5, Ur Specific [place] 1.020, Urine Ketones 2+ H, Urine Blood 1+ H, Urine Nitrite Negative, Urine Bilirubin Negative, Urine Urobilinogen 0.2, Ur Leukocyte Esterase 1+ H, Urine RBC None seen, Urine WBC 10-20 H, Ur Squamous Epith Cells CLINICAL WRITER, Ur Urothelial Cells <5, Urine Bacteria 20-50 H, Urine Culture Reflexed Not needed, Urine Glucose Trace, Urine Total Protein 2+ H 10/05/18 23:12: POC Glucose 162 H 10/05/18 18:32: POC Glucose 163 H Microbiology Results 10/04/18 05:00 Sputum Gram Stain - Final 10/04/18 05:00 Sputum Culture & Sensitivity - Preliminary Serratia Marcescens 10/03/18 09:25 Catheterized Urine [place] Count - Final 10/03/18 09:25 Catheterized Urine - Final 10/03/18 08:52 Blood - Blood Aerobic Blood Culture - Preliminary No growth in 24 hours. 10/03/18 08:52 Blood - Blood Anaerobic Blood Culture - Final Assessment/ Plan: Nephrology. Feeling better today. No acute events overnight. Good urine output. Guerrero removed. Vitals, medications, blood work and imaging reviewed in the chart. NAD. NGT. MMM. Neck supple. CTA. RRR. Abd binder, tender. Hip edema 1+. No C/C. AAO. Normal speech. Med to light urine. EXAM DESCRIPTION: RAD - Chest Single View - 10/05/2018 7:16 am CLINICAL HISTORY: Chest pain, shortness of breath, dyspnea COMPARISON: March 2018 TECHNIQUE: AP portable chest image was obtained 0715 hours . FINDINGS: No peripheral mass or consolidation. Interstitial and some scattered alveolar opacities are present in the lung [place], more so in the medial right base. Dialysis catheter is in place. Left hemidiaphragm elevation again noted. Heart and vasculature are normal. No measurable pleural effusion and no pneumothorax. No acute bony abnormality seen. No acute aortic findings suspected. IMPRESSION: Interstitial and alveolar opacification more so on the right lung base. Volume overload is favored over cardiac decompensation. Right base pneumonia is not excluded but lesser in likelihood as well. A/ ADEOLA, improving. Hyperkalemia. CKD III with proteinuria. 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 Diastolic CHF, chronic. Anemia in chronic illness. Macrocytic. Hypocalcemia. HypoPO4. Moderate malnutrition. P/ Continue current POC and Medications. Gentle IVF while NPO. Monitor electrolytes. PO4 replacement today. Follow up with surgery. Advance diet as tolerated. No NSAIDs. AM labs. Daily weight.
[2018-10-06] MEDS: TEMAZEPAM 15 MG CAP PO PRN (23:06)
[2018-10-07] MEDS: D5 0.45 NS 1,000 ML IV SCH (05:36)
[2018-10-07] MEDS: INSULIN -REGULAR HUMAN 50 UNIT/0.5 ML ML SQ SCH ×5 (06:00→21:21)
[2018-10-07 06:10] LABS: Phosphorus 2.2 mg/dL (2.5-4.9); Potassium 4.3 mmol/L (3.5-5.1)
[2018-10-07 08:02] LABS: Phosphorus 2.1 mg/dL (2.5-4.9)
[2018-10-07] MEDS: SODIUM CHLORIDE 0.9% 10ML INJ IV SCH (09:00)
[2018-10-07] MEDS: POTASS/SODIUM PHOSPHATE 1 PKT POWD.PACK PO SCH ×3 (09:48→13:11)
[2018-10-07] MEDS: ENOXAPARIN 40 MG/0.4 ML SQ SCH (09:51)
[2018-10-07] MEDS: PANTOPRAZOLE 40 MG INJ IV SCH (09:52)
--- NOTE | 2018-10-07 16:36 | PN ---
Date of Progress Note: 10/07/2018 Subjective: The patient is awake, alert, passing gas. Objective: Vital signs: Stable, afebrile. Tolerating diet. Laboratory data reviewed. Abdomen: Benign. Assessment: Status post right hemicolectomy extended. Details discussed with the patient. He has 1 2 lymph nodes negative for metastatic disease. Recommendation: We will advance his diet as tolerated. Decrease the IV fluids. The patient is clin ically doing well. Hopefully home in a day or two. /MODL Voice ID: [id number] Report ID: [id number]
[2018-10-07] MEDS: levoFLOXacin 750 MG TAB PO SCH (17:05)
--- NOTE | 2018-10-07 18:35 | PN ---
Date of Progress Note: 10/07/2018 Subjective: The patient was seen and examined. He is complaining of some weakness and tingling and numbness in his right arm and is unable to hold anything like a spoon and unable to feed himself very well because of the weakness. Otherwise doing okay. Physical Examination: Vital Signs: Showing temperature of 97.7, pulse rate of 88, respiratory rate of 18, blood pressure 1 65/52. General: He appears in no acute distress. HEENT: Atraumatic head. Lungs: Auscultation of lungs reveal bilateral equal air entry. Abdomen: Soft and nontender. Extremities: Showed no evidence of edema at this time. Laboratory Data: At this time is showing normal creatinine with improvement to 1.12. Other electrol ytes are stable. CBC results have been reviewed and are stable as well. Current Medications: Have been reviewed in detail. Impression: 1.Acute renal insufficiency secondary to acute tubular necrosis postoperatively, improving. 2.Bowel obstruction, status post lysis of adhesions. The patient's diet has been advanced and he is doing okay. 3.Pneumonia secondary to Serratia. The patient remains on Levaquin at this time. 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 The patient will possibly benefit from physical therapy. We will request physical therapy t o also focus on his arm and do arm strengthening exercises. 5.Hypertension, stable. 6.Chronic congestive heart failure, compensated. Plan: The patient is overall doing okay. Diet is being advanced and will discontinue IV fluids and monitor him closely. Continue Lovenox for DVT prophylaxis. Avoid hypotension and nephrotoxins and follow up on labs. VV/MODL Voice ID: [id number] Report ID: [id number]
--- NOTE | 2018-10-07 22:26 | PN ---
Date of Progress Note: 10/07/2018 The patient continues to improve. Serratia was cultured, sensitive to Levaquin. Therefore, the IV a ntibiotics were discontinued. Started on Levaquin 750. His diet was advanced. Creatinine is much i mproved. Possibility of transferring to rehab and/or SNF was considered and discussed with the famil y. HR/MODL Voice ID: [id number] Report ID: [id number]
[2018-10-08] MEDS: TEMAZEPAM 15 MG CAP PO PRN ×2 (00:42→21:29)
[2018-10-08 06:05] LABS: Absolute Lymphocytes (CBC) 0.6 K/uL (0.7-4.9); Absolute Monocytes 0.4 K/uL (0.1-1.3); Absolute Neutrophil 3.3 K/uL (1.8-8.0); Basophils % 0.5 % (0-1.3); Eosinophils % 4.9 % (0-4.4); Hematocrit 31.4 % (39.6-49.0); Lymphocytes % 12.5 % (15.3-44.8); MPV 8.4 fL (7.6-11.3); Monocytes % 9.5 % (3.3-12.3); RBC Red Blood Cell Count 3.09 M/uL (4.33-5.43)
[2018-10-08 06:14] LABS: Phosphorus 3.2 mg/dL (2.5-4.9)
[2018-10-08 06:49] VITALS: BMI 32.8
[2018-10-08] MEDS: INSULIN -REGULAR HUMAN 50 UNIT/0.5 ML ML SQ SCH ×4 (07:30→21:29)
[2018-10-08] MEDS: ENOXAPARIN 40 MG/0.4 ML SQ SCH (08:29)
[2018-10-08] MEDS: SODIUM CHLORIDE 0.9% 10ML INJ IV SCH (08:30)
[2018-10-08] MEDS: PANTOPRAZOLE 40 MG INJ IV SCH (08:30)
--- NOTE | 2018-10-08 12:43 | PN ---
Date of Progress Note: 10/08/2018 Subjective: The patient is awake, alert. No complaint. Tolerating diet, passing gas, has not had a good bowel movement yet, however. Objective: Vital Signs: Stable, afebrile. Abdomen: Benign. Laboratory Data: Reviewed. Assessment: Status post right hemicolectomy. Recommendation: Physical therapy and rehab were ordered. The patient may need outpatient therapy OR rehab evaluation. I will discuss that further with Dr. Gunter. From a surgical standpoint, the jeni brothers is doing quite well and wanted discharge and he can be discharged. /MODL Voice ID: [id number] Report ID: [id number]
[2018-10-08] MEDS: levoFLOXacin 750 MG TAB PO SCH (17:23)
--- NOTE | 2018-10-08 17:44 | P.PN ---
Date of Service: 10/08/18 Vital Signs Temp Pulse Resp BP Pulse Ox 98.2 F 99 H 18 129/71 96 10/08/18 12:00 10/08/18 12:00 10/08/18 12:00 10/08/18 12:00 10/08/18 12:00 Medications Hydrocodone Bitart/Acetaminophen ([place] 7.5/325 Mg) 1 tab PO Q4H PRN PRN Reason: Pain scale 5-7 (Moderate) Stop: 11/07/18 15:38 Cetylpyridinium Chloride/Menthol (Cepacol Lozenges) 1 danish PO BIDP PRN PRN Reason: COUGH Stop: 11/03/18 17:59 Last Admin: 10/05/18 09:34 Dose: 1 danish Dextrose (Dextrose 50% Syringe) 12.5 gm IV PRN PRN; Protocol PRN Reason: HYPOGLYCEMIA Stop: 11/01/18 14:05 Last Admin: 10/04/18 11:21 Dose: 12.5 gm Enoxaparin Sodium (Lovenox 40 Mg Inj) 40 mg SQ DAILY [facility] Stop: 11/02/18 09:01 Last Admin: 10/08/18 08:29 Dose: 40 mg Glucagon (Glucagen) 1 mg IM 1X PRN; Protocol PRN Reason: HYPOGLYCEMIA Stop: 11/01/18 14:05 Insulin Human Regular (Novolin -R) 0 unit SQ ACHS [facility]; Protocol Stop: 11/06/18 11:31 Last Admin: 10/08/18 17:24 Dose: 5 unit Ipratropium [place] (Atrovent Neb) 0.5 mg NEB [id number] PRN PRN Reason: sob Stop: 11/02/18 14:01 Levofloxacin (Levaquin) 750 mg PO 1700 [facility] Stop: 11/05/18 17:01 Last Admin: 10/08/18 17:23 Dose: 750 mg Pantoprazole Sodium (Protonix Inj) 40 mg IV DAILY [facility] Stop: 11/02/18 09:01 Last Admin: 10/08/18 08:30 Dose: 40 mg Phenol (Phenaseptic [place]) 2 appl MM Q4H PRN PRN Reason: SORE THROAT Stop: 11/02/18 10:30 Last Admin: 10/06/18 08:35 Dose: 2 appl Sodium Chloride (Sodium Chloride 10 Ml Inj) 10 ml IV DAILY [facility] Stop: 11/02/18 09:01 Last Admin: 10/08/18 08:30 Dose: 10 ml Temazepam (Restoril) 15 mg PO BEDTIME PRN PRN PRN Reason: INSOMNIA Stop: 11/02/18 21:06 Last Admin: 10/08/18 00:42 Dose: 15 mg Lab Results (last 24 hrs) 10/08/18 16:22: POC Glucose 246 H 10/08/18 11:32: POC Glucose 205 H 10/08/18 07:38: POC Glucose 149 H 10/08/18 05:05: Sodium 140, Potassium 4.0, Chloride 107, Carbon Dioxide 25, BUN 23 H, Creatinine 1.37 H, Estimated GFR 50 L, Glucose 121 H, Calcium 8.1 L, Phosphorus 3.2 D 10/08/18 05:05: WBC 4.6 D, RBC 3.09 L, Hgb 10.9 L, Hct 31.4 L, MCV 101.8 H, MCH 35.4 H, MCHC 34.8, RDW 13.1, Plt Count 183, MPV 8.4, Neutrophils % 72.6, Lymphocytes % 12.5 L, Monocytes % 9.5, Eosinophils % 4.9 H, Basophils % 0.5, Absolute Neutrophils 3.3, Absolute Lymphocytes 0.6 L, Absolute Monocytes 0.4, Absolute Eosinophils 0.2, Absolute Basophils 0.0 10/07/18 20:28: POC Glucose 211 H 10/07/18 06:06: POC Glucose 120 10/07/18 00:49: POC Glucose 178 H Microbiology Results 10/03/18 08:52 Blood - Blood Aerobic Blood Culture - Final No growth in 5 days. 10/03/18 08:52 Blood - Blood Anaerobic Blood Culture - Final 10/04/18 05:00 Sputum Gram Stain - Final 10/04/18 05:00 Sputum Culture & Sensitivity - Final Serratia Marcescens 10/03/18 09:25 Catheterized Urine [place] Count - Final 10/03/18 09:25 Catheterized Urine - Final Assessment/ Plan: Nephrology. Feeling better today. Some abdominal cramping in the morning. CPS stable without CP or SOB. No acute events overnight. Good urine output; medium color. Vitals, medications, blood work and imaging reviewed in the chart. NAD. MMM. Neck supple. CTA. RRR. Abd binder, tender. LE Edema trace. No C/ C. AAO. Normal speech. EXAM DESCRIPTION: RAD - Chest Single View - 10/05/2018 7:16 am CLINICAL HISTORY: Chest pain, shortness of breath, dyspnea COMPARISON: March 2018 TECHNIQUE: AP portable chest image was obtained 0715 hours . FINDINGS: No peripheral mass or consolidation. Interstitial and some scattered alveolar opacities are present in the lung [place], more so in the medial right base. Dialysis catheter is in place. Left hemidiaphragm elevation again noted. Heart and vasculature are normal. No measurable pleural effusion and no pneumothorax. No acute bony abnormality seen. No acute aortic findings suspected. IMPRESSION: Interstitial and alveolar opacification more so on the right lung base. Volume overload is favored over cardiac decompensation. Right base pneumonia is not excluded but lesser in likelihood as well. A/ ADEOLA, improving. Hyperkalemia. CKD III with proteinuria. 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 Diastolic CHF, chronic. Anemia in chronic illness. Macrocytic. Hypocalcemia. HypoPO4. Moderate malnutrition. P/ Continue current POC and Medications. Agree with abx changes. Will restart IVF as needed. Monitor electrolytes. Follow up with surgery. Advance diet as tolerated. No NSAIDs. AM labs. Daily weight.
[2018-10-08] MEDS: HYDROCODONE/APAP 7.5/325 MG TAB PO PRN (21:29)
[2018-10-09] MEDS: HYDROCODONE/APAP 7.5/325 MG TAB PO PRN ×4 (02:19→18:25)
[2018-10-09 05:54] LABS: Absolute Lymphocytes (CBC) 0.6 K/uL (0.7-4.9); Absolute Monocytes 0.5 K/uL (0.1-1.3); Absolute Neutrophil 5.2 K/uL (1.8-8.0); Basophils % 0.4 % (0-1.3); Eosinophils % 2.2 % (0-4.4); Hematocrit 35.5 % (39.6-49.0); Lymphocytes % 9.3 % (15.3-44.8); MPV 8.4 fL (7.6-11.3); RBC Red Blood Cell Count 3.52 M/uL (4.33-5.43)
[2018-10-09 06:16] LABS: Albumin 2.4 g/dL (3.4-5.0); Bilirubin Total 0.5 mg/dL (0.2-1.0); Potassium 4.4 mmol/L (3.5-5.1); Uric Acid 7.5 mg/dL (3.5-7.2)
[2018-10-09] MEDS: ENOXAPARIN 40 MG/0.4 ML SQ SCH ×2 (09:00→09:24)
[2018-10-09] MEDS: INSULIN -REGULAR HUMAN 50 UNIT/0.5 ML ML SQ SCH ×4 (09:24→20:44)
[2018-10-09] MEDS: PANTOPRAZOLE 40 MG INJ IV SCH (09:25)
[2018-10-09] MEDS: SODIUM CHLORIDE 0.9% 10ML INJ IV SCH (09:25)
[2018-10-09] MEDS ORDERED: NACHLORIDE 0.45% 1,000 ML IV SCH (11:00)
--- NOTE | 2018-10-09 13:11 | P.PN ---
Date of Service: 10/09/18 Vital Signs Temp Pulse Resp BP Pulse Ox 98 F 92 H 18 130/80 94 10/09/18 08:00 10/09/18 08:00 10/09/18 08:00 10/09/18 08:00 10/09/18 08:00 Medications Hydrocodone Bitart/Acetaminophen (Fowler 7.5/325 Mg) 1 tab PO Q4H PRN PRN Reason: Pain scale 5-7 (Moderate) Stop: 11/07/18 15:38 Last Admin: 10/09/18 12:32 Dose: 1 tab Cetylpyridinium Chloride/Menthol (Cepacol Lozenges) 1 danish PO BIDP PRN PRN Reason: COUGH Stop: 11/03/18 17:59 Last Admin: 10/05/18 09:34 Dose: 1 danish Dextrose (Dextrose 50% Syringe) 12.5 gm IV PRN PRN; Protocol PRN Reason: HYPOGLYCEMIA Stop: 11/01/18 14:05 Last Admin: 10/04/18 11:21 Dose: 12.5 gm Enoxaparin Sodium (Lovenox 40 Mg Inj) 40 mg SQ DAILY [facility] Stop: 11/02/18 09:01 Last Admin: 10/09/18 09:00 Dose: Not Given Glucagon (Glucagen) 1 mg IM 1X PRN; Protocol PRN Reason: HYPOGLYCEMIA Stop: 11/01/18 14:05 Insulin Human Regular (Novolin -R) 0 unit SQ ACHS [facility]; Protocol Stop: 11/06/18 11:31 Last Admin: 10/09/18 12:32 Dose: 5 unit Ipratropium Purcell (Atrovent Neb) 0.5 mg NEB [id number] PRN PRN Reason: sob Stop: 11/02/18 14:01 Levofloxacin (Levaquin) 750 mg PO 1700 [facility] Stop: 11/05/18 17:01 Last Admin: 10/08/18 17:23 Dose: 750 mg Pantoprazole Sodium (Protonix Inj) 40 mg IV DAILY [facility] Stop: 11/02/18 09:01 Last Admin: 10/09/18 09:25 Dose: 40 mg Phenol (Phenaseptic Geary) 2 appl MM Q4H PRN PRN Reason: SORE THROAT Stop: 11/02/18 10:30 Last Admin: 05/21/19 08:35 Dose: 2 appl Sodium Chloride (Sodium Chloride 10 Ml Inj) 10 ml IV DAILY [facility] Stop: 11/02/18 09:01 Last Admin: 10/09/18 09:25 Dose: 10 ml Temazepam (Restoril) 15 mg PO BEDTIME PRN PRN PRN Reason: INSOMNIA Stop: 11/02/18 21:06 Last Admin: 10/08/18 21:29 Dose: 15 mg Lab Results (last 24 hrs) 10/09/18 11:29: POC Glucose 226 H 10/09/18 07:48: POC Glucose 194 H 10/09/18 05:25: Sodium 139, Potassium 4.4, Chloride 106, Carbon Dioxide 26, BUN 29 H, Creatinine 1.93 H, Estimated GFR 33 L, Glucose 157 H, Uric Acid 7.5 H, Calcium 8.2 L, Magnesium 2.0, Total Bilirubin 0.5, AST 14 L, ALT 16, Alkaline Phosphatase 59, NT-Pro-B Natriuret Pep 2059 H, Serum Total Protein 6.0 L, Albumin 2.4 L, Globulin 3.6 H, Albumin/Globulin Ratio 0.7 L 10/09/18 05:25: WBC 6.5 D, RBC 3.52 L, Hgb 12.2 L, Hct 35.5 L, MCV 101.1 H, MCH 34.6, MCHC 34.2, RDW 13.2, Plt Count 243 D, MPV 8.4, Neutrophils % 80.1 H, Lymphocytes % 9.3 L, Monocytes % 8.0, Eosinophils % 2.2, Basophils % 0.4, Absolute Neutrophils 5.2, Absolute Lymphocytes 0.6 L, Absolute Monocytes 0.5, Absolute Eosinophils 0.1, Absolute Basophils 0.0 10/08/18 19:36: POC Glucose 279 H 10/08/18 16:22: POC Glucose 246 H Microbiology Results 10/03/18 08:52 Blood - Blood Aerobic Blood Culture - Final No growth in 5 days. 10/03/18 08:52 Blood - Blood Anaerobic Blood Culture - Final 10/04/18 05:00 Sputum Gram Stain - Final 10/04/18 05:00 Sputum Culture & Sensitivity - Final Serratia Marcescens 10/03/18 09:25 Catheterized Urine [place] Count - Final 10/03/18 09:25 Catheterized Urine - Final Assessment/ Plan: Nephrology. Reports moderate, progressive left shoulder pain for less than 24 hrs. +Diarrhea +Dark urine this morning. OOB this morning and working with PT. CPS stable without CP or SOB. No acute events overnight. Vitals, medications, blood work and imaging reviewed in the chart. NAD. MMM. Neck supple. CTA. RRR. Abd tender. LE Edema none. No C/C. AAO. Normal speech. Diffuse weakness. EXAM DESCRIPTION: RAD - Chest Single View - 10/05/2018 7:16 am CLINICAL HISTORY: Chest pain, shortness of breath, dyspnea COMPARISON: March 2018 TECHNIQUE: AP portable chest image was obtained 0715 hours . FINDINGS: No peripheral mass or consolidation. Interstitial and some scattered alveolar opacities are present in the lung lieberman, more so in the medial right base. Dialysis catheter is in place. Left hemidiaphragm elevation again noted. Heart and vasculature are normal. No measurable pleural effusion and no pneumothorax. No acute bony abnormality seen. No acute aortic findings suspected. IMPRESSION: Interstitial and alveolar opacification more so on the right lung base. Volume overload is favored over cardiac decompensation. Right base pneumonia is not excluded but lesser in likelihood as well. A/ ADEOLA, improving. Hyperkalemia. CKD III with proteinuria. 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 Diastolic CHF, chronic. Anemia in chronic illness. Macrocytic. Hypocalcemia. HypoPO4. Moderate malnutrition. P/ Continue current POC and Medications. IVF restarted in the setting of poor oral intake.; monitor volume status closely. Monitor electrolytes. Continue abx. Follow up with surgery. Advance diet as tolerated; encourage nutrition. PT as tolerated. No NSAIDs. AM labs. Daily weight.
[2018-10-09] MEDS: NACHLORIDE 0.45% 1,000 ML IV SCH ×2 (14:00→23:30)
[2018-10-09] MEDS: levoFLOXacin 750 MG TAB PO SCH (17:15)
[2018-10-09] MEDS: LIDOCAINE 5% PATCH TOP SCH (18:25)
--- NOTE | 2018-10-09 19:26 | PN ---
Date of Progress Note: 10/08/2018 The patient is actually having a pretty good day. He has increased his diet, increased his physical therapy, and overall has handled the surgical procedure quite well. Discussion of disposition was shi ballesteros with the family and the patient. HR/MODL Voice ID: [id number] Report ID: [id number]
--- NOTE | 2018-10-09 19:32 | PN ---
Date of Progress Note: 10/09/2018 The patient states he is not as hungry today and has been drinking or eating as much, and this is usha wn by as he is clinically dehydrated. We will continue with IVs. The patient is not acceptable to r ab. Therefore, we will put him in for SNF unit. In the meantime, he could be monitored in the hos pital for the next couple of days till the SNF unit status is clarified, and if the patient has stabi lized as far as an intake and output is concerned. HR/MODL Voice ID: [id number] Report ID: [id number]
--- NOTE | 2018-10-09 19:35 | PN ---
Date of Progress Note: 10/09/2018 Addendum: As far as his disposition is concerned in regard to home versus a SNF, I feel it is unsafe to go home on his present status, as he is still hydrating, requiring IVs, and continuing to work wi Physical Therapy while in the hospital. HR/MODL Voice ID: [id number] Report ID: [id number]
[2018-10-09] MEDS: TEMAZEPAM 15 MG CAP PO PRN (20:43)
[2018-10-10 00:53] LABS: Urine Appearance CLEAR; Urine Bilirubin NEGATIVE (NEG); Urine Blood NEGATIVE (NEG); Urine Color YELLOW; Urine Glucose TRACE (NEG); Urine Protein NEGATIVE (NEG); Urine Urobilinogen 0.2 mg/dL (0.2-1.0)
[2018-10-10 01:35] LABS: Urine Bacteria <20 /HPF (NONE SEEN); Urine Culture Reflex Order NOT NEEDED; Urine RBC NONE SEEN /HPF (NONE SEEN)
[2018-10-10] MEDS: HYDROCODONE/APAP 7.5/325 MG TAB PO PRN ×3 (04:22→22:46)
[2018-10-10 05:40] LABS: Potassium 5.3 mmol/L (3.5-5.1); Uric Acid 7.2 mg/dL (3.5-7.2)
[2018-10-10] MEDS: INSULIN -REGULAR HUMAN 50 UNIT/0.5 ML ML SQ SCH ×4 (08:34→20:00)
[2018-10-10] MEDS: LIDOCAINE 5% PATCH TOP SCH (08:34)
[2018-10-10] MEDS: ENOXAPARIN 40 MG/0.4 ML SQ SCH (08:35)
[2018-10-10] MEDS: SODIUM CHLORIDE 0.9% 10ML INJ IV SCH (08:35)
[2018-10-10] MEDS: PANTOPRAZOLE 40 MG INJ IV SCH (08:35)
[2018-10-10] MEDS: NA CHLORIDE 0.9% 1,000 ML IV SCH (09:40)
--- NOTE | 2018-10-10 12:09 | P.PN ---
Subjective Date of Service: 10/10/18 Patient seen and examined at bedside with RN. Chart reviewed. Case discussed with general surgery and nephrology at this time. Patient working with physical therapy does appear to be short of breath this morning. States that he is feeling weaker than before. No other complaints to offer overnight. Denies having any chest pain nausea vomiting at this time. Review of Systems 10-point ROS is otherwise unremarkable Physical Examination - Vital Signs Temperature: 96.8 F Blood Pressure: 104/61 Pulse: 100 Respirations: 19 Pulse Ox (%): 94 - Physical Exam General: Alert, Mild distress, Obese Respiratory: Normal air movement, Crackles/rales Cardiovascular: Regular rate/rhythm, Normal S1 S2, Edema Gastrointestinal: Normal bowel sounds, No tenderness Musculoskeletal: No tenderness Integumentary: No rashes Neurological: Normal speech, Normal tone, Normal affect Lymphatics: No axilla or inguinal lymphadenopathy - Studies Laboratory Data (last 24 hrs) 10/10/18 04:49: Sodium 137, Potassium 5.3 H, BUN 32 H, Creatinine 2.06 H, Glucose 161 H, Uric Acid 7.2 Medications List Reviewed: Yes Assessment And Plan - Plan 83-year-old male with significant past medical history who is admitted to the hospital for: 1. Expiratory laparotomy secondary to small bowel obstruction: -s/p lysis of adhesions in the hepatic flexure with diagnostic laparoscopy, exploratory laparotomy, mobilization of the splenic flexure, right hemicolectomy and omentectomy -patient overall doing well now. -diet advanced tolerating well. -surgery primary on the case 2.Pneumonia: -Postop pneumonia -sputum culture positive for Serratia. -on Levaquin at this time. 3. ADEOLA: -most likely secondary to acute tubular necrosis postoperatively -initially with decreased urine output. Now improved -nephrology consulted. Appreciate recommendation -currently on IV fluids at 50 mL an hr -does appear to be a little bit on the overload side today. -will get chest x-ray done 4.Hypertension, stable: -started on home medication 6.Chronic congestive heart failure -caution with IV fluids -will monitor closely DVT and GI prophylaxis Disposition: Currently awaiting placement. Patient will benefit from [facility] facility at this time. Discharge Plan: Home Plan to discharge in: Greater than 2 days - Code Status/Comfort Care Code Status Assessed: Yes Critical Care: No
--- NOTE | 2018-10-10 14:40 | RAD REPORT ---
EXAM DESCRIPTION: RAD - Chest Pa And Lat (2 Views) - 10/10/2018 2:12 pm CLINICAL HISTORY: check for fluid overload Chest pain. COMPARISON: Chest Single View dated 10/04/2018; Chest Single View dated 10/03/2018; Chest Pa And Lat ( 2 Views) dated 07/07/2018; Chest Pa And Lat (2 Views) dated 05/26/2017; Abdomen Pelvis Wo Contrast shy ed 08/18/2018 FINDINGS: The lungs are grossly clear. Small right pleural effusion is noted. The heart is moderatel y enlarged in size. Pneumoperitoneum is noted. IMPRESSION: Small right pleural effusion. No evidence of pulmonary edema. Pneumoperitoneum is present, presumably related to recent surgery. Findings were discussed with Dr. Crenshaw 2:37 p.m. 10/10/2018 by telephone.
[2018-10-10] MEDS: levoFLOXacin 750 MG TAB PO SCH (17:00)
[2018-10-11] MEDS ORDERED: TEMAZEPAM 15 MG CAP PO PRN (02:37)
[2018-10-11] MEDS: NA CHLORIDE 0.9% 1,000 ML IV SCH (05:37)
[2018-10-11] MEDS: INSULIN -REGULAR HUMAN 50 UNIT/0.5 ML ML SQ SCH ×4 (07:30→21:36)
[2018-10-11] MEDS: ENOXAPARIN 40 MG/0.4 ML SQ SCH (08:51)
[2018-10-11] MEDS: PANTOPRAZOLE 40 MG INJ IV SCH (08:51)
[2018-10-11] MEDS: LIDOCAINE 5% PATCH TOP SCH (08:51)
[2018-10-11] MEDS: HYDROCODONE/APAP 7.5/325 MG TAB PO PRN ×3 (08:51→17:30)
[2018-10-11] MEDS: SODIUM CHLORIDE 0.9% 10ML INJ IV SCH (09:00)
--- NOTE | 2018-10-11 11:05 | P.PN ---
Subjective Date of Service: 10/11/18 Patient seen and examined at bedside with RN. Chart reviewed. Case discussed with general surgery and nephrology at this time. Pt doing well. Better than Yesterday. Review of Systems 10-point ROS is otherwise unremarkable Physical Examination - Vital Signs Temperature: 97.1 F Blood Pressure: 110/53 Pulse: 96 Respirations: 18 Pulse Ox (%): 95 - Physical Exam General: Alert, In no apparent distress HEENT: Atraumatic, PERRLA, EOMI Neck: Supple, JVD not distended Respiratory: Clear to auscultation bilaterally, Normal air movement Cardiovascular: Regular rate/rhythm, Normal S1 S2 Gastrointestinal: Normal bowel sounds, Other (Incision C/D/I), Tenderness Musculoskeletal: No tenderness Integumentary: No rashes Neurological: Normal speech, Normal tone, Normal affect Lymphatics: No axilla or inguinal lymphadenopathy - Studies Medications List Reviewed: Yes Assessment And Plan - Plan 83-year-old male with significant past medical history who is admitted to the hospital for: 1. Expiratory laparotomy secondary to small bowel obstruction: -s/p lysis of adhesions in the hepatic flexure with diagnostic laparoscopy, exploratory laparotomy, mobilization of the splenic flexure, right hemicolectomy and omentectomy -patient overall doing well now. -diet advanced tolerating well. 2.Pneumonia: -Postop pneumonia -sputum culture positive for Serratia. -on Levaquin at this time. 3. ADEOLA: -most likely secondary to acute tubular necrosis postoperatively -initially with decreased urine output. Now improved -nephrology consulted. Appreciate recommendation -currently on IV fluids at 50 mL/hr -does appear to be a little bit on the overload side Will caution with Fluids -Xray with small Pleural Effusion and Pneumoperotenium. Finding were discussed with Dr. Crenshaw. 4.Hypertension, stable: -started on home medication 6.Chronic congestive heart failure -caution with IV fluids -will monitor closely DVT and GI prophylaxis Disposition: Currently awaiting placement. Patient will benefit from senior living facility at this time. Discharge Plan: Transfer Plan to discharge in: 48 Hours - Code Status/Comfort Care Code Status Assessed: Yes Critical Care: No
[2018-10-11 13:53] LABS: Potassium 4.5 mmol/L (3.5-5.1)
[2018-10-11] MEDS: levoFLOXacin 750 MG TAB PO SCH (17:30)
[2018-10-11] MEDS: DOCUSATE NA 100 MG CAP PO SCH (21:35)
[2018-10-12] MEDS: NA CHLORIDE 0.9% 1,000 ML IV SCH (00:07)
[2018-10-12 04:44] LABS: Potassium 4.3 mmol/L (3.5-5.1)
[2018-10-12] MEDS: INSULIN -REGULAR HUMAN 50 UNIT/0.5 ML ML SQ SCH ×4 (07:30→21:49)
[2018-10-12] MEDS: SODIUM CHLORIDE 0.9% 10ML INJ IV SCH (09:00)
[2018-10-12] MEDS: DOCUSATE NA 100 MG CAP PO SCH ×2 (09:37→20:12)
[2018-10-12] MEDS: HYDROCODONE/APAP 7.5/325 MG TAB PO PRN ×4 (09:37→21:49)
[2018-10-12] MEDS: LIDOCAINE 5% PATCH TOP SCH (09:37)
[2018-10-12] MEDS: PANTOPRAZOLE 40 MG INJ IV SCH (09:38)
[2018-10-12] MEDS: ENOXAPARIN 40 MG/0.4 ML SQ SCH (09:38)
--- NOTE | 2018-10-12 13:06 | P.PN ---
Subjective Date of Service: 10/12/18 Primary Care Provider: Dr. Gunter(Hospitalist covering due to Holiday) Chief Complaint: Abdominal pain Subjective: Improving (Patient tolerating diet. Patient ambulating.) Physical Examination - Vital Signs Temperature: 97.1 F Blood Pressure: 132/67 Pulse: 103 Respirations: 18 Pulse Ox (%): 93 - Physical Exam General: Alert, In no apparent distress, Oriented x3, Cooperative HEENT: Atraumatic Neck: Supple Respiratory: Clear to auscultation bilaterally, Normal air movement Cardiovascular: Normal pulses, Regular rate/rhythm Gastrointestinal: Normal bowel sounds, Soft and benign, Non-distended, No masses , No rebound, No guarding Musculoskeletal: No warmth Integumentary: Tenderness/swelling (Edema to the lower extremities bilateral) Neurological: Normal speech, Normal strength at 5/5 x4 extr, Normal tone, Normal affect - Studies Laboratory Data (last 24 hrs) 10/12/18 04:00: Sodium 140, Potassium 4.3, BUN 34 H, Creatinine 1.82 H, Glucose 120 H 10/11/18 13:20: Sodium 135 L, Potassium 4.5, BUN 36 H, Creatinine 1.97 H, Glucose 197 H Medications List Reviewed: Yes Assessment & Plan Discharge Plan: Other (nursing home facility) Plan to discharge in: 24 Hours Physician Review Additional Text: Impression: Abdominal pain secondary to small-bowel obstruction status post diagnostic laparoscopy, extensive lysis of adhesions, exploratory laparotomy, mobilization of splenic flexure, right hemicolectomy and omentectomy secondary to 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 Post operative pneumonia with bilateral pleural effusions Acute renal injury secondary to acute tubular necrosis with chronic renal disease stage III Hypertension Chronic diastolic CHF Diabetes mellitus type 2 BPH History of Aortic valve replacement Anemia of chronic disease Plan: Abdominal pain secondary to small-bowel obstruction status post diagnostic laparoscopy, extensive lysis of adhesions, exploratory laparotomy, mobilization of splenic flexure, right hemicolectomy and omentectomy secondary to 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 Continue with physical therapy and incentive spirometer. Will discuss with surgery about plan of care. Patient has selected skilled placement facility to continue his care. Likely discharge within the next 24- 48 hr once patient approved to go to skilled facility. Tomorrow Dr. Gunter will take over his care. Post operative pneumonia with bilateral pleural effusions: Recheck chest x- ray. Continue antibiotic therapy encourage incentive spirometer. Maintain sats above 90%. Wean off oxygen. Acute renal injury secondary to acute tubular necrosis with chronic renal disease stage III: Patient with better oral intake. Will discontinue IV fluids. Will discuss further with nephrology. Renal function improved and stable. Chronic diastolic CHF: Discontinue IV fluids. Will need to monitor edema to the lower extremities. Maintain sats above 90%. Wean off oxygen. Diabetes mellitus type 2: Continue Accu-Cheks and sliding scale insulin. BPH: Restart home medication History of Aortic valve replacement: Currently stable this time. Will monitor closely. Anemia of chronic disease: Restart iron supplementation. Time Spent Managing Pts Care (In Minutes): 55
[2018-10-12] MEDS: ASCORBIC ACID 500 MG TABLET PO SCH ×2 (13:45→21:56)
[2018-10-12] MEDS: LACTULOSE 20 GM/30 ML UCUP PO PRN (17:51)
[2018-10-12] MEDS: levoFLOXacin 750 MG TAB PO SCH (17:56)
[2018-10-12] MEDS ORDERED: HOME MED 1 EA UNK (Ascorbic Acid [Vitamin C] 1,000 MG) PO SCH (21:00)
--- NOTE | 2018-10-12 23:07 | P.PN ---
Subjective Date of Service: 10/11/18 Subjective: No new changes Review of Systems General: Unremarkable Eyes: Unremarkable Respiratory: Unremarkable Cardiovascular: Unremarkable Gastrointestinal: Unremarkable Musculoskeletal: Neck Pain Physical Examination - Vital Signs Temperature: 97.8 F Blood Pressure: 120/58 Pulse: 94 Respirations: 18 Pulse Ox (%): 92 - Physical Exam General: Alert, In no apparent distress HEENT: Atraumatic Neck: Supple, JVD not distended Respiratory: Diminished (Right base) Cardiovascular: Regular rate/rhythm, Normal S1 S2 Gastrointestinal: Normal bowel sounds, No tenderness Musculoskeletal: No tenderness Integumentary: No rashes Neurological: Normal speech, Normal tone, Normal affect - Studies Laboratory Data (last 24 hrs) 10/12/18 04:00: Sodium 140, Potassium 4.3, BUN 34 H, Creatinine 1.82 H, Glucose 120 H Medications List Reviewed: Yes Assessment And Plan - Current Problems (Diagnosis) (1) Acute renal failure Current Visit: Yes Status: Acute Plan: Labs ordered . Continue gentle IV vol replenishment Follow up labs. No nsaids. 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 Post operative pneumonia with bilateral pleural effusions Acute renal injury secondary to acute tubular necrosis with chronic renal disease stage III Hypertension Chronic diastolic CHF Diabetes mellitus type 2 BPH History of Aortic valve replacement Anemia of chronic disease Plan: Abdominal pain secondary to small-bowel obstruction status post diagnostic laparoscopy, extensive lysis of adhesions, exploratory laparotomy, mobilization of splenic flexure, right hemicolectomy and omentectomy secondary to 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 Continue with physical therapy and incentive spirometer. Will discuss with surgery about plan of care. Patient has selected skilled placement facility to continue his care. Likely discharge within the next 24- 48 hr once patient approved to go to skilled facility. Tomorrow Dr. Gunter will take over his care. Post operative pneumonia with bilateral pleural effusions: Recheck chest x- ray. Continue antibiotic therapy encourage incentive spirometer. Maintain sats above 90%. Wean off oxygen. Acute renal injury secondary to acute tubular necrosis with chronic renal disease stage III: Patient with better oral intake. Will discontinue IV fluids. Will discuss further with nephrology. Renal function improved and stable. Chronic diastolic CHF: Discontinue IV fluids. Will need to monitor edema to the lower extremities. Maintain sats above 90%. Wean off oxygen. Diabetes mellitus type 2: Continue Accu-Cheks and sliding scale insulin. BPH: Restart home medication History of Aortic valve replacement: Currently stable this time. Will monitor closely. Anemia of chronic disease: Restart iron supplementation.
[2018-10-13 06:20] LABS: Potassium 4.4 mmol/L (3.5-5.1)
[2018-10-13] MEDS ORDERED: HOME MED 1 EA UNK (Cyanocobalamin (Vitamin B-12) [Vitamin B12] 5,000 MCG) PO SCH (09:00)
[2018-10-13] MEDS: INSULIN -REGULAR HUMAN 50 UNIT/0.5 ML ML SQ SCH ×4 (09:42→22:33)
[2018-10-13] MEDS: FE SULF/FA/VIT B COMP & C TAB PO SCH (09:43)
[2018-10-13] MEDS: LIDOCAINE 5% PATCH TOP SCH (09:43)
[2018-10-13] MEDS: ENOXAPARIN 40 MG/0.4 ML SQ SCH (09:43)
[2018-10-13] MEDS: LACTULOSE 20 GM/30 ML UCUP PO PRN (09:43)
[2018-10-13] MEDS: CYANOCOBALAMIN 1,000 MCG TAB PO SCH (09:43)
[2018-10-13] MEDS: ASPIRIN EC 81 MG TAB PO SCH (09:44)
[2018-10-13] MEDS: FINASTERIDE 5 MG TAB PO SCH (09:44)
[2018-10-13] MEDS: HYDROCODONE/APAP 7.5/325 MG TAB PO PRN ×2 (09:44→16:10)
[2018-10-13] MEDS: ASCORBIC ACID 500 MG TABLET PO SCH ×2 (09:44→22:32)
[2018-10-13] MEDS: DOCUSATE NA 100 MG CAP PO SCH ×2 (09:45→22:32)
[2018-10-13] MEDS: SODIUM CHLORIDE 0.9% 10ML INJ IV SCH (09:45)
[2018-10-13] MEDS: PANTOPRAZOLE 40 MG INJ IV SCH (09:45)
--- NOTE | 2018-10-13 11:01 | P.PN ---
Subjective Date of Service: 10/13/18 Primary Care Provider: Dr. Gunter(Hospitalist covering due to Holiday) Chief Complaint: Abdominal pain Subjective: Doing well (Patient working with physical therapy. Patient tolerating diet.) Physical Examination - Vital Signs Temperature: 97.5 F Blood Pressure: 124/80 Pulse: 89 Respirations: 20 Pulse Ox (%): 95 - Physical Exam General: Alert, In no apparent distress, Oriented x3, Cooperative HEENT: Atraumatic Neck: Supple Respiratory: Clear to auscultation bilaterally, Normal air movement Cardiovascular: Normal pulses, Regular rate/rhythm Gastrointestinal: Normal bowel sounds, Soft and benign, Non-distended, No rebound, No guarding Integumentary: Tenderness/swelling (Edema to the lower extremities improved) Neurological: Normal speech, Normal strength at 5/5 x4 extr, Normal tone, Normal affect - Studies Laboratory Data (last 24 hrs) 10/13/18 05:36: Sodium 143, Potassium 4.4, BUN 31 H, Creatinine 1.66 H, Glucose 135 H Medications List Reviewed: Yes Assessment & Plan Discharge Plan: Other (intermediate facility) Plan to discharge in: 24 Hours Physician Review Additional Text: Impression: Abdominal pain secondary to small-bowel obstruction status post diagnostic laparoscopy, extensive lysis of adhesions, exploratory laparotomy, mobilization of splenic flexure, right hemicolectomy and omentectomy secondary to 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 Post operative pneumonia with bilateral pleural effusions, sputum culture positive for Serratia Acute renal injury secondary to acute tubular necrosis with chronic renal disease stage III Hypertension Chronic diastolic CHF Diabetes mellitus type 2, insulin-dependent with hyperglycemia BPH History of Aortic valve replacement Anemia of chronic disease Obesity, BMI 35.9 Plan: Abdominal pain secondary to small-bowel obstruction status post diagnostic laparoscopy, extensive lysis of adhesions, exploratory laparotomy, mobilization of splenic flexure, right hemicolectomy and omentectomy secondary to 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 Continue to her encourage oral intake. Continue with physical therapy and incentive spirometer. Awaiting approval for skilled placement. Anticipate discharge soon likely within the next 24-48 hr if approved by insurance. Tomorrow Dr. Gunter will take over his care. Post operative pneumonia with bilateral pleural effusions, sputum culture positive for Serratia: Will recheck chest x-ray. Wean off oxygen. Patient has completed 7 day course of antibiotic therapy. Will discontinue Levaquin at this time. Continue to monitor closely. Encourage incentive spirometer. Continue aspiration precaution. Acute renal injury secondary to acute tubular necrosis with chronic renal disease stage III: Patient with better oral intake. IV fluids discontinued yesterday. Renal function stable at this time. Nephrology consulted. Continue with recommendations. Recommended no use of nonsteroidal anti- inflammatories in the future. Future medications will need to be renally dosed. Chronic diastolic CHF: Overall stable. Maintain sats above 90%. Will continue to monitor edema to the lower extremities. Maintain sats above 90%. Wean off oxygen. Diabetes mellitus type 2, insulin-dependent with hyperglycemia: Hyperglycemia noted. Patient insulin dependent. Will restart basal insulin at low dose- Lantus 5 units subcu bedtime. Continue with sliding scale. Will continue to adjust medication. BPH: Continue with medication History of Aortic valve replacement: Currently stable this time. Will monitor closely. Anemia of chronic disease: Continue with iron supplementation. Continue to monitor closely. Obesity, BMI 35.9: Continue with lifestyle modification education. Time Spent Managing Pts Care (In Minutes): 55
[2018-10-13] MEDS ORDERED: MINERAL OIL 30 ML UCUP GT ONE (14:38)
--- NOTE | 2018-10-13 14:38 | P.PN ---
Date of Service: 10/13/18 I was asked to see this patient, who was operated on [address] Crenshaw as he is out of town. S: Patient states he just feels exhausted. Not really having any true abdominal pain. Has not had a bowel movement in the last 48 hr. Since he just feels weak and tired. O: Surgical incision looks clean, has had every other staple removed. No redness no seroma no evidence of any infection. Abdomen itself is soft, not distended, no peritoneal sign appear A: Patient is 8 days postoperative. Has not been m that mobile. P: Encourage patient emboli, will give you a dose of mineral oil. Cutting back to full liquids. Also the [place] Evie pulsed ordered. He is hoping to feel better so that he go to his rehab
[2018-10-13] MEDS ORDERED: BISACODYL 10 MG RECTAL SUPP PR ONE (14:39)
[2018-10-13] MEDS: levoFLOXacin 750 MG TAB PO SCH (16:10)
[2018-10-13] MEDS: INSULIN GLARGINE 100 UNITS/ML SQ SCH (22:34)
--- NOTE | 2018-10-13 23:02 | P.PN ---
Date of Service: 10/13/18 Vital Signs Temp Pulse Resp BP Pulse Ox 97.3 F 94 H 16 118/59 L 97 10/13/18 20:00 10/13/18 20:00 10/13/18 20:00 10/13/18 20:00 10/13/18 20:00 Medications Hydrocodone Bitart/Acetaminophen ([place] 7.5/325 Mg) 1 tab PO Q4H PRN PRN Reason: Pain scale 5-7 (Moderate) Stop: 11/07/18 15:38 Last Admin: 10/13/18 16:10 Dose: 1 tab Ascorbic Acid (Vitamin C) 1,000 mg PO BID [facility] Stop: 11/11/18 13:46 Last Admin: 10/13/18 22:32 Dose: 1,000 mg Aspirin (Aspirin Ec) 81 mg PO DAILY [facility] Stop: 11/12/18 09:01 Last Admin: 10/13/18 09:44 Dose: 81 mg Cetylpyridinium Chloride/Menthol (Cepacol Lozenges) 1 danish PO BIDP PRN PRN Reason: COUGH Stop: 11/03/18 17:59 Last Admin: 10/05/18 09:34 Dose: 1 danish Cyanocobalamin (Vitamin B-12) 5,000 mcg PO DAILY [facility] Stop: 11/12/18 09:01 Last Admin: 10/13/18 09:43 Dose: 5,000 mcg Dextrose (Dextrose 50% Syringe) 12.5 gm IV PRN PRN; Protocol PRN Reason: HYPOGLYCEMIA Stop: 11/01/18 14:05 Last Admin: 10/04/18 11:21 Dose: 12.5 gm Docusate Sodium (Colace Cap) 100 mg PO BID [facility] Stop: 11/10/18 21:01 Last Admin: 10/13/18 22:32 Dose: 100 mg Enoxaparin Sodium (Lovenox 40 Mg Inj) 40 mg SQ DAILY [facility] Stop: 11/02/18 09:01 Last Admin: 10/13/18 09:43 Dose: 40 mg Finasteride (Proscar) 5 mg PO DAILY [facility] Stop: 11/12/18 09:01 Last Admin: 10/13/18 09:44 Dose: 5 mg Glucagon (Glucagen) 1 mg IM 1X PRN; Protocol PRN Reason: HYPOGLYCEMIA Stop: 11/01/18 14:05 Insulin Glargine (Lantus) 5 units SQ BEDTIME [facility] Stop: 11/12/18 21:01 Last Admin: 10/13/18 22:34 Dose: Not Given Insulin Human Regular (Novolin -R) 0 unit SQ ACHS [facility]; Protocol Stop: 11/06/18 11:31 Last Admin: 10/13/18 22:33 Dose: 5 unit Ipratropium [place] (Atrovent Neb) 0.5 mg NEB [id number] PRN PRN Reason: sob Stop: 11/02/18 14:01 Lactulose (Cephulac) 10 gm PO BID PRN PRN Reason: CONSTIPATION Stop: 11/11/18 15:39 Last Admin: 10/13/18 09:43 Dose: 10 gm Levofloxacin (Levaquin) 750 mg PO 1700 [facility] Stop: 11/05/18 17:01 Last Admin: 10/13/18 16:10 Dose: 750 mg Lidocaine (Lidoderm 5% Patch) 1 patch TOP DAILY [facility] Stop: 11/08/18 17:42 Last Admin: 10/13/18 09:43 Dose: 1 patch Multivitamins/Iron (Hemocyte Plus) 1 tab PO DAILY [facility] Stop: 11/12/18 09:01 Last Admin: 10/13/18 09:43 Dose: 1 tab Pantoprazole Sodium (Protonix Inj) 40 mg IV DAILY [facility] Stop: 11/02/18 09:01 Last Admin: 10/13/18 09:45 Dose: 40 mg Phenol (Phenaseptic [place]) 2 appl MM Q4H PRN PRN Reason: SORE THROAT Stop: 11/02/18 10:30 Last Admin: 10/06/18 08:35 Dose: 2 appl Sodium Chloride (Sodium Chloride 10 Ml Inj) 10 ml IV DAILY [facility] Stop: 11/02/18 09:01 Last Admin: 10/13/18 09:45 Dose: 10 ml Temazepam (Restoril) 15 mg PO BEDTIME PRN PRN PRN Reason: INSOMNIA Stop: 11/10/18 02:38 Last Admin: 10/11/18 02:55 Dose: 15 mg Lab Results (last 24 hrs) 10/13/18 21:15: POC Glucose 206 H 10/13/18 15:59: POC Glucose 244 H 10/13/18 11:12: POC Glucose 197 H 10/13/18 08:15: POC Glucose 156 H 10/13/18 05:36: Sodium 143, Potassium 4.4, Chloride 114 H, Carbon Dioxide 23, BUN 31 H, Creatinine 1.66 H, Estimated GFR 40 L, Glucose 135 H, Calcium 8.0 L Microbiology Results 10/03/18 08:52 Blood - Blood Aerobic Blood Culture - Final No growth in 5 days. 10/03/18 08:52 Blood - Blood Anaerobic Blood Culture - Final 10/04/18 05:00 Sputum Gram Stain - Final 10/04/18 05:00 Sputum Culture & Sensitivity - Final Serratia Marcescens 10/03/18 09:25 Catheterized Urine [place] Count - Final 10/03/18 09:25 Catheterized Urine - Final Assessment/ Plan: Nephrology. Malaise. Severe constipation. CPS stable without CP or SOB. No acute events overnight. Vitals, medications, blood work and imaging reviewed in the chart. NAD. MMM. Neck supple. CTA. RRR. Abd tender. LE & Hip Edema 1-2+. No C/C. AAO. Normal speech. Diffuse weakness. EXAM DESCRIPTION: RAD - Chest Single View - 10/05/2018 7:16 am CLINICAL HISTORY: Chest pain, shortness of breath, dyspnea COMPARISON: March 2018 TECHNIQUE: AP portable chest image was obtained 0715 hours . FINDINGS: No peripheral mass or consolidation. Interstitial and some scattered alveolar opacities are present in the lung [place], more so in the medial right base. Dialysis catheter is in place. Left hemidiaphragm elevation again noted. Heart and vasculature are normal. No measurable pleural effusion and no pneumothorax. No acute bony abnormality seen. No acute aortic findings suspected. IMPRESSION: Interstitial and alveolar opacification more so on the right lung base. Volume overload is favored over cardiac decompensation. Right base pneumonia is not excluded but lesser in likelihood as well. A/ ADEOLA, improving. Hyperkalemia. CKD III with proteinuria. 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 Diastolic CHF, chronic. Anemia in chronic illness. Macrocytic. Hypocalcemia. HypoPO4. Moderate malnutrition. P/ Continue current POC and Medications. Agree with stopping IVF. Agree with laxative therapy. Monitor electrolytes. Continue abx. Follow up with surgery. Advance diet as tolerated; encourage nutrition. PT as tolerated. No NSAIDs. AM labs. Daily weight. Case discussed with Dr. Adam.
[2018-10-14 04:51] LABS: Potassium 4.2 mmol/L (3.5-5.1)
[2018-10-14] MEDS: INSULIN -REGULAR HUMAN 50 UNIT/0.5 ML ML SQ SCH ×4 (09:41→21:51)
[2018-10-14] MEDS: FINASTERIDE 5 MG TAB PO SCH (09:42)
[2018-10-14] MEDS: PANTOPRAZOLE 40 MG INJ IV SCH (09:42)
[2018-10-14] MEDS: ENOXAPARIN 40 MG/0.4 ML SQ SCH (09:42)
[2018-10-14] MEDS: LIDOCAINE 5% PATCH TOP SCH (09:42)
[2018-10-14] MEDS: DOCUSATE NA 100 MG CAP PO SCH ×2 (09:43→21:50)
[2018-10-14] MEDS: FE SULF/FA/VIT B COMP & C TAB PO SCH (09:43)
[2018-10-14] MEDS: ASPIRIN EC 81 MG TAB PO SCH (09:43)
[2018-10-14] MEDS: CYANOCOBALAMIN 1,000 MCG TAB PO SCH (09:43)
[2018-10-14] MEDS: SODIUM CHLORIDE 0.9% 10ML INJ IV SCH (09:44)
[2018-10-14] MEDS: ASCORBIC ACID 500 MG TABLET PO SCH ×2 (09:44→21:50)
[2018-10-14] MEDS ORDERED: BISACODYL 10 MG RECTAL SUPP PR ONE (13:02)
[2018-10-14] MEDS ORDERED: MINERAL OIL 30 ML UCUP PO ONE (13:03)
--- NOTE | 2018-10-14 13:14 | P.PN ---
Date of Service: 10/14/18 S: Patient a little depressed today. Has started having hard cramping lower abdominal pain earlier today. Describes it as a lot of pressure. Located in the true pelvis. O: Abdomen is soft, hyperactive bowel sounds. A: Postop ileus appears to be resolving. P: Continue current therapy, will repeat mineral oil and Dulcolax suppository. May be started on some Ensure as I am sure his serum protein levels are low which may help to explain his peripheral edema.
[2018-10-14] MEDS: ENSURE ENLIVE 237 ML CAN PO SCH ×2 (14:52→21:50)
[2018-10-14] MEDS: INSULIN GLARGINE 100 UNITS/ML SQ SCH (21:50)
[2018-10-15 04:45] LABS: Absolute Lymphocytes (CBC) 0.6 K/uL (0.7-4.9); Absolute Monocytes 0.5 K/uL (0.1-1.3); Absolute Neutrophil 5.9 K/uL (1.8-8.0); Basophils % 0.3 % (0-1.3); Eosinophils % 1.2 % (0-4.4); Hematocrit 29.1 % (39.6-49.0); Lymphocytes % 8.5 % (15.3-44.8); MPV 7.6 fL (7.6-11.3); Monocytes % 7.5 % (3.3-12.3); RBC Red Blood Cell Count 2.87 M/uL (4.33-5.43)
[2018-10-15 05:01] LABS: Albumin 2.2 g/dL (3.4-5.0); Bilirubin Total 0.3 mg/dL (0.2-1.0); Potassium 3.9 mmol/L (3.5-5.1); Prealbumin 8.2 mg/dL (20-40); Protein, Total 5.6 g/dL (6.4-8.2)
[2018-10-15 05:02] LABS: Magnesium 1.8 mg/dL (1.8-2.4); Phosphorus 2.8 mg/dL (2.5-4.9)
[2018-10-15] MEDS: INSULIN -REGULAR HUMAN 50 UNIT/0.5 ML ML SQ SCH ×4 (07:30→21:45)
[2018-10-15] MEDS: ENSURE ENLIVE 237 ML CAN PO SCH ×3 (09:00→21:00)
[2018-10-15] MEDS ORDERED: POTASSIUM CL SA 10 MEQ TAB PO ONE (09:00)
[2018-10-15] MEDS: ASCORBIC ACID 500 MG TABLET PO SCH ×2 (09:00→21:44)
[2018-10-15] MEDS ORDERED: MAGNESIUM SULFATE 1 gm IVPB 1 GM/100 ML BAG IV ONE (09:00)
[2018-10-15] MEDS: DOCUSATE NA 100 MG CAP PO SCH ×2 (09:00→21:44)
--- NOTE | 2018-10-15 12:44 | RAD REPORT ---
EXAM DESCRIPTION: RAD - Abdomen W Erect - 10/15/2018 11:38 am CLINICAL HISTORY: rule out ileus Pain COMPARISON: Abdomen W Erect dated 05/26/2017; Chest Pa And Lat (2 Views) dated 10/10/2018; Abdomen P emanuel Wo Contrast dated 08/18/2018; Chest Single View dated 10/04/2018 FINDINGS: Mild diffuse distention of large and small bowel loops are noted compatible with mild adyn amic ileus. Mild postsurgical pneumoperitoneum again seen. Midline skin mariola are noted. A small right pleural effusion evident. Bilateral hip arthroplasties are present. IMPRESSION: Adynamic ileus, mild in severity is noted.
--- NOTE | 2018-10-15 14:40 | P.PN ---
Date of Service: 10/15/18 S: This is states today he has this for now. Has been no energy. Feels like..... Denies any abdominal pain however. Just no energy at all. Did have some bowel movements yesterday. Has no appetite and does not want he at the moment. O: Vital signs are stable, hemoglobin and hematocrit 9 and 27. Patient also has low serum alanine as well as serum protein. On physical exam abdomen is mildly distended. No guarding or rebound. Has some peripheral edema. Abdominal films shows findings consistent with ileus. A: Still has postoperative ileus which has not yet resolved. Low serum protein. P: Discuss with the patient's his current condition. Was concerned as he did have some was bowel movements yesterday and she had her that he was going to be placed in quarantine. I explained to her the C diff protocol. We will encourage his p.o. intake. Will reassess again tomorrow.
--- NOTE | 2018-10-15 18:00 | P.PN ---
Date of Service: 10/14/18 Vital Signs Temp Pulse Resp BP Pulse Ox 97.5 F 95 H 18 121/57 L 96 10/15/18 16:00 10/15/18 16:00 10/15/18 16:00 10/15/18 16:00 10/15/18 16:00 Medications Hydrocodone Bitart/Acetaminophen ([place] 7.5/325 Mg) 1 tab PO Q4H PRN PRN Reason: Pain scale 5-7 (Moderate) Stop: 11/07/18 15:38 Last Admin: 10/13/18 16:10 Dose: 1 tab Ascorbic Acid (Vitamin C) 1,000 mg PO BID [facility] Stop: 11/11/18 13:46 Last Admin: 10/15/18 09:00 Dose: Not Given Aspirin (Aspirin Ec) 81 mg PO DAILY [facility] Stop: 11/12/18 09:01 Last Admin: 10/14/18 09:43 Dose: 81 mg Cetylpyridinium Chloride/Menthol (Cepacol Lozenges) 1 danish PO BIDP PRN PRN Reason: COUGH Stop: 11/03/18 17:59 Last Admin: 10/05/18 09:34 Dose: 1 danish Cyanocobalamin (Vitamin B-12) 5,000 mcg PO DAILY [facility] Stop: 11/12/18 09:01 Last Admin: 10/14/18 09:43 Dose: 5,000 mcg Dextrose (Dextrose 50% Syringe) 12.5 gm IV PRN PRN; Protocol PRN Reason: HYPOGLYCEMIA Stop: 11/01/18 14:05 Last Admin: 10/04/18 11:21 Dose: 12.5 gm Docusate Sodium (Colace Cap) 100 mg PO BID [facility] Stop: 11/10/18 21:01 Last Admin: 10/15/18 09:00 Dose: Not Given Enoxaparin Sodium (Lovenox 40 Mg Inj) 40 mg SQ DAILY [facility] Stop: 11/02/18 09:01 Last Admin: 10/14/18 09:42 Dose: 40 mg Finasteride (Proscar) 5 mg PO DAILY [facility] Stop: 11/12/18 09:01 Last Admin: 10/14/18 09:42 Dose: 5 mg Glucagon (Glucagen) 1 mg IM 1X PRN; Protocol PRN Reason: HYPOGLYCEMIA Stop: 11/01/18 14:05 Insulin Glargine (Lantus) 5 units SQ BEDTIME [facility] Stop: 11/12/18 21:01 Last Admin: 10/14/18 21:50 Dose: 5 units Insulin Human Regular (Novolin -R) 0 unit SQ ACHS [facility]; Protocol Stop: 11/06/18 11:31 Last Admin: 10/15/18 11:30 Dose: Not Given Ipratropium [place] (Atrovent Neb) 0.5 mg NEB [id number] PRN PRN Reason: sob Stop: 11/02/18 14:01 Lactulose (Cephulac) 10 gm PO BID PRN PRN Reason: CONSTIPATION Stop: 11/11/18 15:39 Last Admin: 10/13/18 09:43 Dose: 10 gm Lidocaine (Lidoderm 5% Patch) 1 patch TOP DAILY [facility] Stop: 11/08/18 17:42 Last Admin: 10/14/18 09:42 Dose: 1 patch Multivitamins/Iron (Hemocyte Plus) 1 tab PO DAILY [facility] Stop: 11/12/18 09:01 Last Admin: 10/14/18 09:43 Dose: 1 tab Nutritional Formula (Ensure Enlive) 237 ml PO TID [facility] Stop: 11/13/18 14:01 Last Admin: 10/15/18 13:51 Dose: Not Given Pantoprazole Sodium (Protonix Packet (For Suspension)) 40 mg FT DAILY [facility] Stop: 11/14/18 09:01 Phenol (Phenaseptic [place]) 2 appl MM Q4H PRN PRN Reason: SORE THROAT Stop: 11/02/18 10:30 Last Admin: 10/06/18 08:35 Dose: 2 appl Temazepam (Restoril) 15 mg PO BEDTIME PRN PRN PRN Reason: INSOMNIA Stop: 11/10/18 02:38 Last Admin: 10/11/18 02:55 Dose: 15 mg Lab Results (last 24 hrs) 10/15/18 15:45: POC Glucose 162 H 10/15/18 11:31: POC Glucose 194 H 10/15/18 08:17: POC Glucose 112 10/15/18 03:42: Phosphorus 2.8, Magnesium 1.8 10/15/18 03:42: WBC 7.2, RBC 2.87 L, Hgb 9.8 L, Hct 29.1 L D, MCV 101.3 H, MCH 34.2, MCHC 33.8, RDW 13.1, Plt Count 290, MPV 7.6, Neutrophils % 82.5 H, Lymphocytes % 8.5 L, Monocytes % 7.5, Eosinophils % 1.2, Basophils % 0.3, Absolute Neutrophils 5.9, Absolute Lymphocytes 0.6 L, Absolute Monocytes 0.5, Absolute Eosinophils 0.1, Absolute Basophils 0.0 10/15/18 03:42: Sodium 145, Potassium 3.9, Chloride 113 H, Carbon Dioxide 26, BUN 25 H, Creatinine 1.22, Estimated GFR 57 L, Glucose 80, Calcium 8.6, Total Bilirubin 0.3, AST 21, ALT 22, Alkaline Phosphatase 63, Serum Total Protein 5.6 L, Albumin 2.2 L, Globulin 3.4, Albumin/Globulin Ratio 0.6 L, Prealbumin 8.2 L 10/14/18 19:50: POC Glucose 205 H Microbiology Results 10/03/18 08:52 Blood - Blood Aerobic Blood Culture - Final No growth in 5 days. 10/03/18 08:52 Blood - Blood Anaerobic Blood Culture - Final 10/04/18 05:00 Sputum Gram Stain - Final 10/04/18 05:00 Sputum Culture & Sensitivity - Final Serratia Marcescens 10/03/18 09:25 Catheterized Urine [place] Count - Final 10/03/18 09:25 Catheterized Urine - Final Assessment/ Plan: Nephrology. Constipation improved with laxative therapy. Persistent weakness and fatigue. +Appetite CPS stable without CP or SOB. No acute events overnight. Vitals, medications, blood work and imaging reviewed in the chart. NAD. MMM. Neck supple. CTA. RRR. Abd tender. LE & Hip Edema 1-2+. No C/C. AAO. Normal speech. Diffuse weakness. EXAM DESCRIPTION: RAD - Chest Single View - 10/05/2018 7:16 am CLINICAL HISTORY: Chest pain, shortness of breath, dyspnea COMPARISON: March 2018 TECHNIQUE: AP portable chest image was obtained 0715 hours . FINDINGS: No peripheral mass or consolidation. Interstitial and some scattered alveolar opacities are present in the lung [place], more so in the medial right base. Dialysis catheter is in place. Left hemidiaphragm elevation again noted. Heart and vasculature are normal. No measurable pleural effusion and no pneumothorax. No acute bony abnormality seen. No acute aortic findings suspected. IMPRESSION: Interstitial and alveolar opacification more so on the right lung base. Volume overload is favored over cardiac decompensation. Right base pneumonia is not excluded but lesser in likelihood as well. A/ ADEOLA, improving. Hyperkalemia. CKD III with proteinuria. 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 Diastolic CHF, chronic. Anemia in chronic illness. Macrocytic. Hypocalcemia. HypoPO4. Moderate malnutrition. P/ Continue current POC and Medications. Will give diuretic therapy as needed. Monitor electrolytes. Laxative/ Stool softner as needed. Continue abx. Follow up with surgery. Advance diet as tolerated; encourage nutrition. PT as tolerated. No NSAIDs. AM labs. Daily weight. Case discussed with Dr. Adam.
[2018-10-15] MEDS: FINASTERIDE 5 MG TAB PO SCH (18:07)
[2018-10-15] MEDS: ENOXAPARIN 40 MG/0.4 ML SQ SCH (18:07)
[2018-10-15] MEDS: FE SULF/FA/VIT B COMP & C TAB PO SCH (18:07)
[2018-10-15] MEDS: CYANOCOBALAMIN 1,000 MCG TAB PO SCH (18:07)
[2018-10-15] MEDS: Pantoprazole (granules) 40 MG/BLIST PACKET FT SCH (18:08)
[2018-10-15] MEDS: ASPIRIN EC 81 MG TAB PO SCH (18:08)
[2018-10-15] MEDS: LIDOCAINE 5% PATCH TOP SCH (18:08)
[2018-10-15] MEDS ORDERED: hydroCHLOROthiazide 25 MG TAB PO ONE (18:37)
--- NOTE | 2018-10-15 18:38 | P.PN ---
Date of Service: 10/15/18 Vital Signs Temp Pulse Resp BP Pulse Ox 97.5 F 95 H 18 121/57 L 96 10/15/18 16:00 10/15/18 16:00 10/15/18 16:00 10/15/18 16:00 10/15/18 16:00 Medications Hydrocodone Bitart/Acetaminophen ([place] 7.5/325 Mg) 1 tab PO Q4H PRN PRN Reason: Pain scale 5-7 (Moderate) Stop: 11/07/18 15:38 Last Admin: 10/13/18 16:10 Dose: 1 tab Ascorbic Acid (Vitamin C) 1,000 mg PO BID [facility] Stop: 11/11/18 13:46 Last Admin: 10/15/18 09:00 Dose: Not Given Aspirin (Aspirin Ec) 81 mg PO DAILY [facility] Stop: 11/12/18 09:01 Last Admin: 10/15/18 18:08 Dose: 81 mg Cetylpyridinium Chloride/Menthol (Cepacol Lozenges) 1 danish PO BIDP PRN PRN Reason: COUGH Stop: 11/03/18 17:59 Last Admin: 10/05/18 09:34 Dose: 1 danish Cyanocobalamin (Vitamin B-12) 5,000 mcg PO DAILY [facility] Stop: 11/12/18 09:01 Last Admin: 10/15/18 18:07 Dose: 5,000 mcg Dextrose (Dextrose 50% Syringe) 12.5 gm IV PRN PRN; Protocol PRN Reason: HYPOGLYCEMIA Stop: 11/01/18 14:05 Last Admin: 10/04/18 11:21 Dose: 12.5 gm Docusate Sodium (Colace Cap) 100 mg PO BID [facility] Stop: 11/10/18 21:01 Last Admin: 10/15/18 09:00 Dose: Not Given Enoxaparin Sodium (Lovenox 40 Mg Inj) 40 mg SQ DAILY [facility] Stop: 11/02/18 09:01 Last Admin: 10/15/18 18:07 Dose: 40 mg Finasteride (Proscar) 5 mg PO DAILY [facility] Stop: 11/12/18 09:01 Last Admin: 10/15/18 18:07 Dose: 5 mg Glucagon (Glucagen) 1 mg IM 1X PRN; Protocol PRN Reason: HYPOGLYCEMIA Stop: 11/01/18 14:05 Hydrochlorothiazide (Hydrodiuril) 25 mg PO 1X [facility] Stop: 10/15/18 18:32 Insulin Glargine (Lantus) 5 units SQ BEDTIME [facility] Stop: 11/12/18 21:01 Last Admin: 10/14/18 21:50 Dose: 5 units Insulin Human Regular (Novolin -R) 0 unit SQ ACHS [facility]; Protocol Stop: 11/06/18 11:31 Last Admin: 10/15/18 18:08 Dose: 3 unit Ipratropium [place] (Atrovent Neb) 0.5 mg NEB [id number] PRN PRN Reason: sob Stop: 11/02/18 14:01 Lactulose (Cephulac) 10 gm PO BID PRN PRN Reason: CONSTIPATION Stop: 11/11/18 15:39 Last Admin: 10/13/18 09:43 Dose: 10 gm Lidocaine (Lidoderm 5% Patch) 1 patch TOP DAILY [facility] Stop: 11/08/18 17:42 Last Admin: 10/15/18 18:08 Dose: 1 patch Multivitamins/Iron (Hemocyte Plus) 1 tab PO DAILY [facility] Stop: 11/12/18 09:01 Last Admin: 10/15/18 18:07 Dose: 1 tab Nutritional Formula (Ensure Enlive) 237 ml PO TID [facility] Stop: 11/13/18 14:01 Last Admin: 10/15/18 13:51 Dose: Not Given Pantoprazole Sodium (Protonix Packet (For Suspension)) 40 mg FT DAILY [facility] Stop: 11/14/18 09:01 Last Admin: 10/15/18 18:08 Dose: 40 mg Phenol (Phenaseptic [place]) 2 appl MM Q4H PRN PRN Reason: SORE THROAT Stop: 11/02/18 10:30 Last Admin: 10/06/18 08:35 Dose: 2 appl Temazepam (Restoril) 15 mg PO BEDTIME PRN PRN PRN Reason: INSOMNIA Stop: 11/10/18 02:38 Last Admin: 10/11/18 02:55 Dose: 15 mg Lab Results (last 24 hrs) 10/15/18 15:45: POC Glucose 162 H 10/15/18 11:31: POC Glucose 194 H 10/15/18 08:17: POC Glucose 112 10/15/18 03:42: Phosphorus 2.8, Magnesium 1.8 10/15/18 03:42: WBC 7.2, RBC 2.87 L, Hgb 9.8 L, Hct 29.1 L D, MCV 101.3 H, MCH 34.2, MCHC 33.8, RDW 13.1, Plt Count 290, MPV 7.6, Neutrophils % 82.5 H, Lymphocytes % 8.5 L, Monocytes % 7.5, Eosinophils % 1.2, Basophils % 0.3, Absolute Neutrophils 5.9, Absolute Lymphocytes 0.6 L, Absolute Monocytes 0.5, Absolute Eosinophils 0.1, Absolute Basophils 0.0 10/15/18 03:42: Sodium 145, Potassium 3.9, Chloride 113 H, Carbon Dioxide 26, BUN 25 H, Creatinine 1.22, Estimated GFR 57 L, Glucose 80, Calcium 8.6, Total Bilirubin 0.3, AST 21, ALT 22, Alkaline Phosphatase 63, Serum Total Protein 5.6 L, Albumin 2.2 L, Globulin 3.4, Albumin/Globulin Ratio 0.6 L, Prealbumin 8.2 L 10/14/18 19:50: POC Glucose 205 H Microbiology Results 10/03/18 08:52 Blood - Blood Aerobic Blood Culture - Final No growth in 5 days. 10/03/18 08:52 Blood - Blood Anaerobic Blood Culture - Final 10/04/18 05:00 Sputum Gram Stain - Final 10/04/18 05:00 Sputum Culture & Sensitivity - Final Serratia Marcescens 10/03/18 09:25 Catheterized Urine [place] Count - Final 10/03/18 09:25 Catheterized Urine - Final Assessment/ Plan: Nephrology. Abdominal discomfort. Persistent weakness and fatigue. +Appetite CPS stable without CP or SOB. No acute events overnight. Vitals, medications, blood work and imaging reviewed in the chart. NAD. MMM. Neck supple. CTA. RRR. Abd tender. LE & Hip Edema 1-2+. No C/C. AAO. Normal speech. Diffuse weakness. EXAM DESCRIPTION: RAD - Chest Single View - 10/05/2018 7:16 am CLINICAL HISTORY: Chest pain, shortness of breath, dyspnea COMPARISON: March 2018 TECHNIQUE: AP portable chest image was obtained 0715 hours . FINDINGS: No peripheral mass or consolidation. Interstitial and some scattered alveolar opacities are present in the lung [place], more so in the medial right base. Dialysis catheter is in place. Left hemidiaphragm elevation again noted. Heart and vasculature are normal. No measurable pleural effusion and no pneumothorax. No acute bony abnormality seen. No acute aortic findings suspected. IMPRESSION: Interstitial and alveolar opacification more so on the right lung base. Volume overload is favored over cardiac decompensation. Right base pneumonia is not excluded but lesser in likelihood as well. EXAM DESCRIPTION: RAD - Abdomen W Erect - 10/15/2018 11:38 am CLINICAL HISTORY: rule out ileus Pain COMPARISON: Abdomen W Erect dated 05/26/2017; Chest Pa And Lat (2 Views) dated ; Abdomen Pelvis Wo Contrast dated 08/18/2018; Chest Single View dated FINDINGS: Mild diffuse distention of large and small bowel loops are noted compatible with mild adynamic ileus. Mild postsurgical pneumoperitoneum again seen. Midline skin mariola are noted. A small right pleural effusion evident. Bilateral hip arthroplasties are present. IMPRESSION: Adynamic ileus, mild in severity is noted. A/ ADEOLA, improving. Hyperkalemia. CKD III with proteinuria. 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 Diastolic CHF, chronic. Anemia in chronic illness. Macrocytic. Hypocalcemia. HypoPO4. Moderate malnutrition. Post-op ileus. P/ Continue current POC and Medications. HCTZ X1 dose. Reglan IV X4 doses. Monitor electrolytes. Laxative/ Stool softner as needed. Follow up with surgery. Advance diet as tolerated; encourage nutrition. PT as tolerated. No NSAIDs. AM labs. Daily weight. Case discussed with nurse.
[2018-10-15] MEDS: METOCLOPRAMIDE 10 MG/2mL INJ IV SCH (21:45)
[2018-10-15] MEDS: HYDROCODONE/APAP 7.5/325 MG TAB PO PRN (21:45)
[2018-10-15] MEDS: INSULIN GLARGINE 100 UNITS/ML SQ SCH (21:46)
[2018-10-16] MEDS: METOCLOPRAMIDE 10 MG/2mL INJ IV SCH ×3 (01:16→13:00)
[2018-10-16 06:32] LABS: Magnesium 1.7 mg/dL (1.8-2.4); Potassium 3.8 mmol/L (3.5-5.1)
[2018-10-16] MEDS: INSULIN -REGULAR HUMAN 50 UNIT/0.5 ML ML SQ SCH ×4 (07:30→21:30)
--- NOTE | 2018-10-16 07:30 | PN ---
Date of Progress Note: 10/14/2018 Subjective: Patient still complains of significant weakness and abdominal discomfort. Tonight, his abdomen is distended, tight, hyperactive bowel sounds. We will obtain a KUB in the a.m. to see the s tatus of his ileus and has had a bowel movement, which he said was quite runny following numerous att empts at this using Dulcolax and mineral oil. Disposition still pending. He is somewhat dependent o n whether he can tolerate his diet and fluids as well. HR/MODL Voice ID: [id number] Report ID: [id number]
[2018-10-16] MEDS: LIDOCAINE 5% PATCH TOP SCH (08:14)
[2018-10-16] MEDS: Pantoprazole (granules) 40 MG/BLIST PACKET FT SCH (08:14)
[2018-10-16] MEDS: ENOXAPARIN 40 MG/0.4 ML SQ SCH (08:14)
[2018-10-16] MEDS: ASPIRIN EC 81 MG TAB PO SCH (08:14)
[2018-10-16] MEDS: FINASTERIDE 5 MG TAB PO SCH (08:14)
[2018-10-16] MEDS: CYANOCOBALAMIN 1,000 MCG TAB PO SCH (08:14)
[2018-10-16] MEDS: FE SULF/FA/VIT B COMP & C TAB PO SCH (08:16)
[2018-10-16] MEDS: ENSURE ENLIVE 237 ML CAN PO SCH ×3 (08:17→21:34)
[2018-10-16] MEDS: DOCUSATE NA 100 MG CAP PO SCH ×2 (08:17→21:00)
[2018-10-16] MEDS: ASCORBIC ACID 500 MG TABLET PO SCH ×2 (08:17→21:34)
[2018-10-16] MEDS ORDERED: SPIRONOLACTONE 25 MG TABLET PO ONE (09:00)
[2018-10-16] MEDS ORDERED: POTASSIUM 25 MEQ EFFERV TAB PO ONE (09:00)
[2018-10-16] MEDS ORDERED: MAGNESIUM SULFATE 1 gm IVPB 1 GM/100 ML BAG IV ONE (09:00)
[2018-10-16] MEDS ORDERED: hydroCHLOROthiazide 25 MG TAB PO ONE (09:00)
--- NOTE | 2018-10-16 09:21 | P.PN ---
Date of Service: 10/16/18 S: Patient feels somewhat better today, more bright eyed alert. Just had a bowel movement. O: Abdomen is soft, postop ileus appears to have resolved A: Surgically stable, advanced diet as tolerated P: Continue to mobilize patient, he may be transferred to the SNF unit soon. Encourage p.o. intake. Ambulate.
--- NOTE | 2018-10-16 18:13 | P.PN ---
Date of Service: 10/16/18 Vital Signs Temp Pulse Resp BP Pulse Ox 97.7 F 97 H 18 135/57 L 100 10/16/18 16:00 10/16/18 16:00 10/16/18 16:00 10/16/18 16:00 10/16/18 16:00 Medications Hydrocodone Bitart/Acetaminophen ([place] 7.5/325 Mg) 1 tab PO Q4H PRN PRN Reason: Pain scale 5-7 (Moderate) Stop: 11/07/18 15:38 Last Admin: 10/15/18 21:45 Dose: 1 tab Ascorbic Acid (Vitamin C) 1,000 mg PO BID [facility] Stop: 11/11/18 13:46 Last Admin: 10/16/18 08:17 Dose: 1,000 mg Aspirin (Aspirin Ec) 81 mg PO DAILY [facility] Stop: 11/12/18 09:01 Last Admin: 10/16/18 08:14 Dose: 81 mg Cetylpyridinium Chloride/Menthol (Cepacol Lozenges) 1 danish PO BIDP PRN PRN Reason: COUGH Stop: 11/03/18 17:59 Last Admin: 10/05/18 09:34 Dose: 1 danish Cyanocobalamin (Vitamin B-12) 5,000 mcg PO DAILY [facility] Stop: 11/12/18 09:01 Last Admin: 10/16/18 08:14 Dose: 5,000 mcg Dextrose (Dextrose 50% Syringe) 12.5 gm IV PRN PRN; Protocol PRN Reason: HYPOGLYCEMIA Stop: 11/01/18 14:05 Last Admin: 10/04/18 11:21 Dose: 12.5 gm Docusate Sodium (Colace Cap) 100 mg PO BID [facility] Stop: 11/10/18 21:01 Last Admin: 10/16/18 08:17 Dose: Not Given Enoxaparin Sodium (Lovenox 40 Mg Inj) 40 mg SQ DAILY [facility] Stop: 11/02/18 09:01 Last Admin: 10/16/18 08:14 Dose: 40 mg Finasteride (Proscar) 5 mg PO DAILY [facility] Stop: 11/12/18 09:01 Last Admin: 10/16/18 08:14 Dose: 5 mg Glucagon (Glucagen) 1 mg IM 1X PRN; Protocol PRN Reason: HYPOGLYCEMIA Stop: 11/01/18 14:05 Insulin Glargine (Lantus) 5 units SQ BEDTIME [facility] Stop: 11/12/18 21:01 Last Admin: 10/15/18 21:46 Dose: 5 units Insulin Human Regular (Novolin -R) 0 unit SQ ACHS [facility]; Protocol Stop: 11/06/18 11:31 Last Admin: 10/16/18 17:48 Dose: 7 unit Ipratropium [place] (Atrovent Neb) 0.5 mg NEB [id number] PRN PRN Reason: sob Stop: 11/02/18 14:01 Lactulose (Cephulac) 10 gm PO BID PRN PRN Reason: CONSTIPATION Stop: 11/11/18 15:39 Last Admin: 10/13/18 09:43 Dose: 10 gm Lidocaine (Lidoderm 5% Patch) 1 patch TOP DAILY [facility] Stop: 11/08/18 17:42 Last Admin: 10/16/18 08:14 Dose: 1 patch Multivitamins/Iron (Hemocyte Plus) 1 tab PO DAILY [facility] Stop: 11/12/18 09:01 Last Admin: 10/16/18 08:16 Dose: 1 tab Nutritional Formula (Ensure Enlive) 237 ml PO TID [facility] Stop: 11/13/18 14:01 Last Admin: 10/16/18 14:30 Dose: 237 ml Pantoprazole Sodium (Protonix Packet (For Suspension)) 40 mg FT DAILY [facility] Stop: 11/14/18 09:01 Last Admin: 10/16/18 08:14 Dose: 40 mg Phenol (Phenaseptic [place]) 2 appl MM Q4H PRN PRN Reason: SORE THROAT Stop: 11/02/18 10:30 Last Admin: 10/06/18 08:35 Dose: 2 appl Temazepam (Restoril) 15 mg PO BEDTIME PRN PRN PRN Reason: INSOMNIA Stop: 11/10/18 02:38 Last Admin: 10/11/18 02:55 Dose: 15 mg Lab Results (last 24 hrs) 10/16/18 16:25: POC Glucose 283 H 10/16/18 11:34: POC Glucose 269 H 10/16/18 07:37: POC Glucose 149 H 10/16/18 05:29: Sodium 141, Potassium 3.8, Chloride 109 H, Carbon Dioxide 27, BUN 22 H, Creatinine 1.20, Estimated GFR 58 L, Glucose 153 H, Calcium 8.8, Magnesium 1.7 L 10/15/18 19:41: POC Glucose 260 H Microbiology Results 10/03/18 08:52 Blood - Blood Aerobic Blood Culture - Final No growth in 5 days. 10/03/18 08:52 Blood - Blood Anaerobic Blood Culture - Final 10/04/18 05:00 Sputum Gram Stain - Final 10/04/18 05:00 Sputum Culture & Sensitivity - Final Serratia Marcescens 10/03/18 09:25 Catheterized Urine [place] Count - Final 10/03/18 09:25 Catheterized Urine - Final Assessment/ Plan: Nephrology. Feeling better today. Good urine output with the diuretics. +BM Persistent weakness and fatigue. +Appetite CPS stable without CP or SOB. No acute events overnight. Vitals, medications, blood work and imaging reviewed in the chart. NAD. MMM. Neck supple. CTA. RRR. Abd tender. LE & Hip Edema 1+. No C/C. AAO. Normal speech. Diffuse weakness. EXAM DESCRIPTION: RAD - Chest Single View - 10/05/2018 7:16 am CLINICAL HISTORY: Chest pain, shortness of breath, dyspnea COMPARISON: March 2018 TECHNIQUE: AP portable chest image was obtained 0715 hours . FINDINGS: No peripheral mass or consolidation. Interstitial and some scattered alveolar opacities are present in the lung lieberman, more so in the medial right base. Dialysis catheter is in place. Left hemidiaphragm elevation again noted. Heart and vasculature are normal. No measurable pleural effusion and no pneumothorax. No acute bony abnormality seen. No acute aortic findings suspected. IMPRESSION: Interstitial and alveolar opacification more so on the right lung base. Volume overload is favored over cardiac decompensation. Right base pneumonia is not excluded but lesser in likelihood as well. EXAM DESCRIPTION: RAD - Abdomen W Erect - 10/15/2018 11:38 am CLINICAL HISTORY: rule out ileus Pain COMPARISON: Abdomen W Erect dated 05/26/2017; Chest Pa And Lat (2 Views) dated ; Abdomen Pelvis Wo Contrast dated 08/18/2018; Chest Single View dated FINDINGS: Mild diffuse distention of large and small bowel loops are noted compatible with mild adynamic ileus. Mild postsurgical pneumoperitoneum again seen. Midline skin mariola are noted. A small right pleural effusion evident. Bilateral hip arthroplasties are present. IMPRESSION: Adynamic ileus, mild in severity is noted. A/ ADEOLA, improving. Hyperkalemia. CKD III with proteinuria. 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 Diastolic CHF, chronic. Anemia in chronic illness. Macrocytic. Hypocalcemia. HypoPO4. Moderate malnutrition. Post-op ileus. P/ Continue current POC and Medications. HCTZ/ Spironolactone today. Monitor electrolytes. Laxative/ Stool softner as needed. Follow up with surgery. Advance diet as tolerated; encourage nutrition. PT as tolerated. No NSAIDs. AM labs. Daily weight.
[2018-10-16] MEDS: INSULIN GLARGINE 100 UNITS/ML SQ SCH (21:33)
--- NOTE | 2018-10-16 22:03 | PN ---
Date of Progress Note: 10/16/2018 The patient feels better today. States it is the best day in the last couple of days. Had bowel mov ements x2. The abdomen was still distended, softer. We will advance diet as tolerated. Consider colbert sfer the next day or so to a sniff. His prealbumin is low and is encouraged to use protein drinks an d protein diet. HR/MODL Voice ID: [id number] Report ID: [id number]
[2018-10-17] MEDS: HYDROCODONE/APAP 7.5/325 MG TAB PO PRN ×2 (05:09→20:57)
[2018-10-17 06:18] LABS: Magnesium 1.6 mg/dL (1.8-2.4)
[2018-10-17] MEDS: LIDOCAINE 5% PATCH TOP SCH (08:31)
[2018-10-17] MEDS: INSULIN -REGULAR HUMAN 50 UNIT/0.5 ML ML SQ SCH ×4 (08:32→20:57)
[2018-10-17] MEDS: ENOXAPARIN 40 MG/0.4 ML SQ SCH (08:33)
[2018-10-17] MEDS: FE SULF/FA/VIT B COMP & C TAB PO SCH (08:33)
[2018-10-17] MEDS: CYANOCOBALAMIN 1,000 MCG TAB PO SCH (08:33)
[2018-10-17] MEDS: Pantoprazole (granules) 40 MG/BLIST PACKET FT SCH (08:33)
[2018-10-17] MEDS: FINASTERIDE 5 MG TAB PO SCH (08:33)
[2018-10-17] MEDS: ASPIRIN EC 81 MG TAB PO SCH (08:34)
[2018-10-17] MEDS: ASCORBIC ACID 500 MG TABLET PO SCH ×2 (08:34→20:57)
[2018-10-17] MEDS: ENSURE ENLIVE 237 ML CAN PO SCH ×3 (08:39→20:58)
[2018-10-17] MEDS: DOCUSATE NA 100 MG CAP PO SCH ×2 (08:40→20:58)
[2018-10-17] MEDS ORDERED: MAGNESIUM SULFATE 1 gm IVPB 1 GM/100 ML BAG IV ONE (09:00)
--- NOTE | 2018-10-17 12:53 | P.PN ---
Date of Service: 10/17/18 Vital Signs Temp Pulse Resp BP Pulse Ox 97.4 F 99 H 18 142/59 H 98 10/17/18 12:00 10/17/18 12:00 10/17/18 12:00 10/17/18 12:00 10/17/18 12:00 Medications Hydrocodone Bitart/Acetaminophen ([place] 7.5/325 Mg) 1 tab PO Q4H PRN PRN Reason: Pain scale 5-7 (Moderate) Stop: 11/07/18 15:38 Last Admin: 10/17/18 05:09 Dose: 1 tab Ascorbic Acid (Vitamin C) 1,000 mg PO BID [facility] Stop: 11/11/18 13:46 Last Admin: 10/17/18 08:34 Dose: 1,000 mg Aspirin (Aspirin Ec) 81 mg PO DAILY [facility] Stop: 11/12/18 09:01 Last Admin: 10/17/18 08:34 Dose: 81 mg Cetylpyridinium Chloride/Menthol (Cepacol Lozenges) 1 danish PO BIDP PRN PRN Reason: COUGH Stop: 11/03/18 17:59 Last Admin: 10/05/18 09:34 Dose: 1 danish Cyanocobalamin (Vitamin B-12) 5,000 mcg PO DAILY [facility] Stop: 11/12/18 09:01 Last Admin: 10/17/18 08:33 Dose: 5,000 mcg Dextrose (Dextrose 50% Syringe) 12.5 gm IV PRN PRN; Protocol PRN Reason: HYPOGLYCEMIA Stop: 11/01/18 14:05 Last Admin: 10/04/18 11:21 Dose: 12.5 gm Docusate Sodium (Colace Cap) 100 mg PO BID [facility] Stop: 11/10/18 21:01 Last Admin: 10/17/18 08:40 Dose: Not Given Enoxaparin Sodium (Lovenox 40 Mg Inj) 40 mg SQ DAILY [facility] Stop: 11/02/18 09:01 Last Admin: 10/17/18 08:33 Dose: 40 mg Finasteride (Proscar) 5 mg PO DAILY [facility] Stop: 11/12/18 09:01 Last Admin: 10/17/18 08:33 Dose: 5 mg Glucagon (Glucagen) 1 mg IM 1X PRN; Protocol PRN Reason: HYPOGLYCEMIA Stop: 11/01/18 14:05 Hydrochlorothiazide (Hydrodiuril) 25 mg PO DAILY [facility] Stop: 11/16/18 13:01 Insulin Glargine (Lantus) 5 units SQ BEDTIME [facility] Stop: 11/12/18 21:01 Last Admin: 10/16/18 21:33 Dose: 5 units Insulin Human Regular (Novolin -R) 0 unit SQ ACHS [facility]; Protocol Stop: 11/06/18 11:31 Last Admin: 10/17/18 12:15 Dose: 7 unit Ipratropium [place] (Atrovent Neb) 0.5 mg NEB [id number] PRN PRN Reason: sob Stop: 11/02/18 14:01 Lactulose (Cephulac) 10 gm PO BID PRN PRN Reason: CONSTIPATION Stop: 11/11/18 15:39 Last Admin: 10/13/18 09:43 Dose: 10 gm Lidocaine (Lidoderm 5% Patch) 1 patch TOP DAILY [facility] Stop: 11/08/18 17:42 Last Admin: 10/17/18 08:31 Dose: 1 patch Multivitamins/Iron (Hemocyte Plus) 1 tab PO DAILY [facility] Stop: 11/12/18 09:01 Last Admin: 10/17/18 08:33 Dose: 1 tab Nutritional Formula (Ensure Enlive) 237 ml PO TID [facility] Stop: 11/13/18 14:01 Last Admin: 10/17/18 08:39 Dose: 237 ml Pantoprazole Sodium (Protonix Packet (For Suspension)) 40 mg FT DAILY [facility] Stop: 11/14/18 09:01 Last Admin: 10/17/18 08:33 Dose: 40 mg Phenol (Phenaseptic [place]) 2 appl MM Q4H PRN PRN Reason: SORE THROAT Stop: 11/02/18 10:30 Last Admin: 10/06/18 08:35 Dose: 2 appl Lab Results (last 24 hrs) 10/17/18 11:02: POC Glucose 271 H 10/17/18 07:51: POC Glucose 190 H 10/17/18 05:33: Sodium 141, Potassium 4.0, Chloride 106, Carbon Dioxide 29, BUN 19 H, Creatinine 1.16, Estimated GFR 60 L, Glucose 156 H, Calcium 9.0, Magnesium 1.6 L 10/16/18 19:59: POC Glucose 214 H 10/16/18 16:25: POC Glucose 283 H Microbiology Results 10/03/18 08:52 Blood - Blood Aerobic Blood Culture - Final No growth in 5 days. 10/03/18 08:52 Blood - Blood Anaerobic Blood Culture - Final 10/04/18 05:00 Sputum Gram Stain - Final 10/04/18 05:00 Sputum Culture & Sensitivity - Final Serratia Marcescens 10/03/18 09:25 Catheterized Urine [place] Count - Final 10/03/18 09:25 Catheterized Urine - Final Assessment/ Plan: Nephrology. Feeling better today. Persistent edema. Tolerating an oral diet. Persistent weakness and fatigue. +Appetite CPS stable without CP or SOB. No acute events overnight. Vitals, medications, blood work and imaging reviewed in the chart. NAD. MMM. Neck supple. CTA. RRR. Abd tender. LE & Hip Edema 1+. No C/C. AAO. Normal speech. Diffuse weakness. EXAM DESCRIPTION: RAD - Chest Single View - 10/05/2018 7:16 am CLINICAL HISTORY: Chest pain, shortness of breath, dyspnea COMPARISON: March 2018 TECHNIQUE: AP portable chest image was obtained 0715 hours . FINDINGS: No peripheral mass or consolidation. Interstitial and some scattered alveolar opacities are present in the lung lieberman, more so in the medial right base. Dialysis catheter is in place. Left hemidiaphragm elevation again noted. Heart and vasculature are normal. No measurable pleural effusion and no pneumothorax. No acute bony abnormality seen. No acute aortic findings suspected. IMPRESSION: Interstitial and alveolar opacification more so on the right lung base. Volume overload is favored over cardiac decompensation. Right base pneumonia is not excluded but lesser in likelihood as well. EXAM DESCRIPTION: RAD - Abdomen W Erect - 10/15/2018 11:38 am CLINICAL HISTORY: rule out ileus Pain COMPARISON: Abdomen W Erect dated 05/26/2017; Chest Pa And Lat (2 Views) dated ; Abdomen Pelvis Wo Contrast dated 08/18/2018; Chest Single View dated FINDINGS: Mild diffuse distention of large and small bowel loops are noted compatible with mild adynamic ileus. Mild postsurgical pneumoperitoneum again seen. Midline skin mariola are noted. A small right pleural effusion evident. Bilateral hip arthroplasties are present. IMPRESSION: Adynamic ileus, mild in severity is noted. A/ ADEOLA, improving. Hyperkalemia. CKD III with proteinuria. 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 Diastolic CHF, chronic. Anemia in chronic illness. Macrocytic. Hypocalcemia. HypoPO4. Moderate malnutrition. Post-op ileus. P/ Continue current POC and Medications. Start daily HCTZ. Agree with magnesium replacement. Start slo-mag. Laxative/ Stool softner as needed. Follow up with surgery. Advance diet as tolerated; encourage nutrition. PT as tolerated. No NSAIDs. AM labs. Daily weight.
[2018-10-17] MEDS: MAGNESIUM CHLORIDE 64 MG TAB PO SCH ×2 (15:08→20:58)
[2018-10-17] MEDS: hydroCHLOROthiazide 25 MG TAB PO SCH (15:08)
[2018-10-17] MEDS: INSULIN GLARGINE 100 UNITS/ML SQ SCH (20:57)
[2018-10-18 06:30] LABS: Albumin 2.1 g/dL (3.4-5.0); Bilirubin Total 0.3 mg/dL (0.2-1.0); Potassium 4.9 mmol/L (3.5-5.1); Protein, Total 5.7 g/dL (6.4-8.2)
[2018-10-18] MEDS: LIDOCAINE 5% PATCH TOP SCH (08:15)
[2018-10-18] MEDS: ENOXAPARIN 40 MG/0.4 ML SQ SCH (08:15)
[2018-10-18] MEDS: MAGNESIUM CHLORIDE 64 MG TAB PO SCH ×2 (08:16→21:20)
[2018-10-18] MEDS: FE SULF/FA/VIT B COMP & C TAB PO SCH (08:16)
[2018-10-18] MEDS: CYANOCOBALAMIN 1,000 MCG TAB PO SCH (08:16)
[2018-10-18] MEDS: hydroCHLOROthiazide 25 MG TAB PO SCH (08:16)
[2018-10-18] MEDS: FINASTERIDE 5 MG TAB PO SCH (08:16)
[2018-10-18] MEDS: ASPIRIN EC 81 MG TAB PO SCH (08:16)
[2018-10-18] MEDS: DOCUSATE NA 100 MG CAP PO SCH ×2 (08:17→21:20)
[2018-10-18] MEDS: ENSURE ENLIVE 237 ML CAN PO SCH ×3 (08:17→21:19)
[2018-10-18] MEDS: INSULIN -REGULAR HUMAN 50 UNIT/0.5 ML ML SQ SCH ×4 (08:18→21:21)
[2018-10-18] MEDS: ASCORBIC ACID 500 MG TABLET PO SCH ×2 (08:25→21:20)
[2018-10-18] MEDS: Pantoprazole (granules) 40 MG/BLIST PACKET FT SCH (08:25)
[2018-10-18 13:40] LABS: Magnesium 1.6 mg/dL (1.8-2.4); Prealbumin 11.6 mg/dL (20-40)
[2018-10-18] MEDS ORDERED: MAGNESIUM SULFATE 1 gm IVPB 1 GM/100 ML BAG IV ONE (13:48)
--- NOTE | 2018-10-18 17:53 | PN ---
The patient has improved. He has tolerated his soft diet. Had a couple of bowel movements. Magnesi um has dropped. This will be replaced and if he continues this way, he should be able to be transfer red next 24-48 hours to a SNF. However, he still has some peripheral edema and Nephrology added a di uretic. However, I think there was some of this probably secondary to his hypoproteinemia. This naila l be discussed with the lime sludge kiln operator. HR/STEPHAN Voice ID: [id number] Report ID: [id number]
[2018-10-18] MEDS: HYDROCODONE/APAP 7.5/325 MG TAB PO PRN (21:19)
[2018-10-18] MEDS: INSULIN GLARGINE 100 UNITS/ML SQ SCH (21:21)
[2018-10-18 21:22] VITALS: O2SAT 95
--- NOTE | 2018-10-19 02:21 | PN ---
Date of Progress Note: 10/18/2018 Subjective: The patient states he is status quo. He is eating somewhat better on his soft diet. Hi s appetite is basically stable. He still has some peripheral edema despite the addition of the diure tic. Discussion with Nephrology in regard to protein supplements either orally and/or IV will be det ermined by the morning evaluation. If in fact it is not indicated, he will be transferred to a SNF. HR/MODL Voice ID: [id number] Report ID: [id number]
[2018-10-19 05:42] LABS: Magnesium 1.7 mg/dL (1.8-2.4); Potassium 4.2 mmol/L (3.5-5.1)
[2018-10-19] MEDS ORDERED: MAGNESIUM SULFATE 1 gm IVPB 1 GM/100 ML BAG IV ONE (07:30)
[2018-10-19] MEDS: FE SULF/FA/VIT B COMP & C TAB PO SCH (08:12)
[2018-10-19] MEDS: INSULIN -REGULAR HUMAN 50 UNIT/0.5 ML ML SQ SCH ×2 (08:12→12:14)
[2018-10-19] MEDS: hydroCHLOROthiazide 25 MG TAB PO SCH (08:13)
[2018-10-19] MEDS: ASCORBIC ACID 500 MG TABLET PO SCH (08:13)
[2018-10-19] MEDS: ASPIRIN EC 81 MG TAB PO SCH (08:13)
[2018-10-19] MEDS: FINASTERIDE 5 MG TAB PO SCH (08:13)
[2018-10-19] MEDS: MAGNESIUM CHLORIDE 64 MG TAB PO SCH (08:14)
[2018-10-19] MEDS: Pantoprazole (granules) 40 MG/BLIST PACKET FT SCH (08:14)
[2018-10-19] MEDS: ENOXAPARIN 40 MG/0.4 ML SQ SCH (08:14)
[2018-10-19] MEDS: DOCUSATE NA 100 MG CAP PO SCH (08:14)
[2018-10-19] MEDS: LIDOCAINE 5% PATCH TOP SCH (08:14)
[2018-10-19] MEDS: ENSURE ENLIVE 237 ML CAN PO SCH (08:15)
[2018-10-19] MEDS: CYANOCOBALAMIN 1,000 MCG TAB PO SCH (10:24)
[2018-10-19] MEDS ORDERED: ENSURE HIGH PROTEIN 237 ML CAN PO PRN (11:22)
[2018-10-19 14:11] VITALS: BP 127/46; TEMP 97.7
--- NOTE | 2018-10-19 16:12 | PN ---
Date of Progress Note: 10/19/2018 The patient is awake, alert. No complaint, tolerating diet, had bowel movement the day before yesterday. Awaiting discharge to longterm. Physical Examination: Vital signs are stable. Afebrile. Abdomen is benign. Assessment: Status post extended right hemicolectomy. Recommendations: We will discontinue the mariola. He can follow up with me in one month and he can follow up with Dr. Fields in 1-2 weeks. ALANA/STEPHAN Voice ID: [id number] Report ID: [id number] MTDD
--- NOTE | 2018-10-19 17:43 | P.PN ---
Date of Service: 10/19/18 Vital Signs Temp Pulse Resp BP Pulse Ox 97.7 F 101 H 24 H 127/46 L 98 10/19/18 12:00 10/19/18 12:00 10/19/18 12:00 10/19/18 12:00 10/19/18 12:00 Lab Results (last 24 hrs) 10/19/18 11:02: POC Glucose 172 H 10/19/18 09:10: Lactic Acid 1.0 10/19/18 07:54: POC Glucose 257 H 10/19/18 04:41: Sodium 140, Potassium 4.2, Chloride 103, Carbon Dioxide 34 H, BUN 21 H, Creatinine 1.01, Estimated GFR 71 L, Glucose 185 H, Calcium 8.7, Magnesium 1.7 L 10/18/18 19:41: POC Glucose 230 H Microbiology Results 10/03/18 08:52 Blood - Blood Aerobic Blood Culture - Final No growth in 5 days. 10/03/18 08:52 Blood - Blood Anaerobic Blood Culture - Final 10/04/18 05:00 Sputum Gram Stain - Final 10/04/18 05:00 Sputum Culture & Sensitivity - Final Serratia Marcescens 10/03/18 09:25 Catheterized Urine [place] Count - Final 10/03/18 09:25 Catheterized Urine - Final Assessment/ Plan: Nephrology. Doing well. Good urine output. CPS stable without CP or SOB. No acute events overnight. Vitals, medications, blood work and imaging reviewed in the chart. NAD. MMM. Neck supple. CTA. RRR. Abd tender. LE & Hip Edema 1+. No C/C. AAO. Normal speech. Diffuse weakness. EXAM DESCRIPTION: RAD - Chest Single View - 10/05/2018 7:16 am CLINICAL HISTORY: Chest pain, shortness of breath, dyspnea COMPARISON: March 2018 TECHNIQUE: AP portable chest image was obtained 0715 hours . FINDINGS: No peripheral mass or consolidation. Interstitial and some scattered alveolar opacities are present in the lung [place], more so in the medial right base. Dialysis catheter is in place. Left hemidiaphragm elevation again noted. Heart and vasculature are normal. No measurable pleural effusion and no pneumothorax. No acute bony abnormality seen. No acute aortic findings suspected. IMPRESSION: Interstitial and alveolar opacification more so on the right lung base. Volume overload is favored over cardiac decompensation. Right base pneumonia is not excluded but lesser in likelihood as well. EXAM DESCRIPTION: RAD - Abdomen W Erect - 10/15/2018 11:38 am CLINICAL HISTORY: rule out ileus Pain COMPARISON: Abdomen W Erect dated 05/26/2017; Chest Pa And Lat (2 Views) dated ; Abdomen Pelvis Wo Contrast dated 08/18/2018; Chest Single View dated FINDINGS: Mild diffuse distention of large and small bowel loops are noted compatible with mild adynamic ileus. Mild postsurgical pneumoperitoneum again seen. Midline skin mariola are noted. A small right pleural effusion evident. Bilateral hip arthroplasties are present. IMPRESSION: Adynamic ileus, mild in severity is noted. A/ ADEOLA, improving. Hyperkalemia. CKD III with proteinuria. 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 Diastolic CHF, chronic. Anemia in chronic illness. Macrocytic. Hypocalcemia. HypoPO4. Moderate malnutrition. Post-op ileus. P/ Continue current POC and Medications. Continue HCTZ and Slo-mag. Laxative/ Stool softner as needed. Follow up with surgery. Advance diet as tolerated; encourage nutrition. PT as tolerated. No NSAIDs. AM labs. Daily weight.
--- NOTE | 2018-10-20 12:10 | PN ---
Date of Progress Note: 10/19/2018 The patient continues to do well and is eating. His bowels are functioning. The abdomen is soft and he was seen by his surgeon who felt he could be transferred as medically indicated. Magnesium level are minimally off and his protein seems to be improved since he started eating. He will be transferr ed to SNF to follow up with the surgeon and myself and Nephrology if necessary. HR/MODL Voice ID: [id number] Report ID: [id number]
== END 2018-10-19 15:13 | DRG 329 ==
LOC: OR 07:57 → 3RD-ICU 13:21 → 2ND 10-04 13:53 → 4TH 10-10 17:07
PROVIDERS: ADMIT Surgery; ATTEND Surgery
PROC: 0DTU0ZZ Resection of Omentum, Open Approach (ICD-10-PCS; 2018-10-02)
PROC: 0DNU4ZZ Release Omentum, Percutaneous Endoscopic Approach (ICD-10-PCS; 2018-10-02)
PROC: 0DTF0ZZ Resection of Right Large Intestine, Open Approach (ICD-10-PCS; principal; 2018-10-02 09:00)
DX: C18.3 Malignant neoplasm of hepatic flexure (principal); N17.0 Acute kidney failure with tubular necrosis; J15.6 Pneumonia due to other Gram-negative bacteria; I13.0 Hypertensive heart and chronic kidney disease with heart failure and stage 1 through stage 4 chronic kidney disease, or unspecified chronic kidney disease; I50.32 Chronic diastolic (congestive) heart failure; K91.89 Other postprocedural complications and disorders of digestive system; K56.7 Ileus, unspecified; K66.0 Peritoneal adhesions (postprocedural) (postinfection); K63.5 Polyp of colon; I25.10 Atherosclerotic heart disease of native coronary artery without angina pectoris; D63.8 Anemia in other chronic diseases classified elsewhere; R53.81 Other malaise; E86.0 Dehydration; E11.65 Type 2 diabetes mellitus with hyperglycemia; E66.9 Obesity, unspecified; E87.5 Hyperkalemia; E11.22 Type 2 diabetes mellitus with diabetic chronic kidney disease; N18.3 Chronic kidney disease, stage 3 (moderate); E83.51 Hypocalcemia; N40.0 Benign prostatic hyperplasia without lower urinary tract symptoms; Y83.6 Removal of other organ (partial) (total) as the cause of abnormal reaction of the patient, or of later complication, without mention of misadventure at the time of the procedure; Z68.33 Body mass index [BMI] 33.0-33.9, adult
CPT/HCPCS: 36415; 71045; 71046; 74019; 80048; 80053; 81001; 81003; 81015; 82043; 82150; 82248; 82550; 82570; 82962; 83605; 83690; 83735; 83880; 84100; 84134; 84300; 84550; 85025; 87040; 87070; 87077; 87086; 87088; 87186; 87205; 88305; 88307; 88309; 94640; 96365; 96367; 97110; 97116; 97163; 97530; C9113; J0456; J1170; J1650; J1940; J2405; J2704; J2710; J2765; J3010; J3475; J7030

== ENCOUNTER 2019-08-09 10:23 | Emergency (ER) | payer OTHER ==
--- OUTSIDE RECORDS SUMMARY | 2019-08-09 10:24 | XMS REPORT ---
:1935 [facility] Address [address] [place] [address] Dr. Douglas [address] [place] [id number] Care Team Providers Name Role Phone Unavailable Unavailable Unavailable Problems This patient has no known problems. Allergies, Adverse Reactions, Alerts This patient has no known allergies or adverse reactions. Medications This patient has no known medications.
--- NOTE | 2019-08-09 10:49 | RAD REPORT ---
EXAM DESCRIPTION: CT - Ct Stroke Brain Wo Cont - 08/09/2019 10:42 am CLINICAL HISTORY: Slurred speech COMPARISON: 2017 TECHNIQUE: Computed axial tomography of the head was obtained. All CT scans are performed using dose optimization technique as appropriate and may include automated exposure control or mA/KV adjustment according to patient size. FINDINGS: An intracranial bleed is not seen . Cerebral atrophy is noted. The ventricles are normal in caliber. No extra-axial fluid collection is noted. Mild low-density within periventricular, deep and subcortical white matter likely ischemic changes se condary to small vessel disease Fluid within the sinuses/ mastoids is not seen. IMPRESSION: No acute intracranial abnormality is seen. If patient's symptoms persist MRI of the bra in would be recommended. Dr Gillespie of the emergency room was notified at 10:43 a.m. August 09, 2019
--- NOTE | 2019-08-09 11:14 | RAD REPORT ---
EXAM DESCRIPTION: Nicole Single View08/09/2019 10:56 am CLINICAL HISTORY: Chest pain COMPARISON: Sep 17 2018 FINDINGS: Small right pleural effusion or thickening with mild right basilar opacity probably atelec tasis Left lung appears clear of acute infiltrate. Heart is mildly enlarged Postsurgical changes involve the chest
[2019-08-09 11:20] LABS: Absolute Lymphocytes (CBC) 0.6 K/uL (0.7-4.9); Basophils % 0.3 % (0-1.3); Hematocrit 38.9 % (39.6-49.0); Lymphocytes % 11.7 % (15.3-44.8); MPV 7.8 fL (7.6-11.3); RBC Red Blood Cell Count 3.84 M/uL (4.33-5.43)
[2019-08-09 11:24] LABS: Protime INR 1.06
[2019-08-09 11:37] LABS: ALT/SGPT 19 U/L (12-78); AST/SGOT 14 U/L (15-37); Alkaline Phosphatase 92 U/L (45-117); BUN Blood Urea Nitrogen 35 mg/dL (7-18); Bicarbonate 28 mmol/L (21-32); Bilirubin Direct 0.1 mg/dL (0-0.2); Bilirubin Total 0.4 mg/dL (0.2-1.0); Glucose Level 210 mg/dL (74-106); Magnesium 2.2 mg/dL (1.8-2.4); Potassium 4.5 mmol/L (3.5-5.1); Protein, Total 7.3 g/dL (6.4-8.2); Sodium Level 140 mmol/L (136-145); Troponin (Emerg Dept Use Only) < 0.02 ng/mL (0.0-0.045)
[2019-08-09] MEDS ORDERED: NA CHLORIDE 0.9% 0 ML ONE (11:41)
[2019-08-09] MEDS ORDERED: NA CHLORIDE 0.9% 500 ML ONE (11:43)
[2019-08-09 12:36] LABS: Urine Blood NEGATIVE (NEG); Urine Glucose NEGATIVE (NEG); Urine Protein 1+ (NEG)
[2019-08-09 12:45] LABS: Barbiturates NEGATIVE (NEGATIVE); Benzodiazepines NEGATIVE (NEGATIVE); Cocaine NEGATIVE (NEGATIVE); METHAMPHETAM NEGATIVE (NEGATIVE); Methadone NEGATIVE (NEGATIVE); Opiates NEGATIVE (NEGATIVE); Phencyclidine NEGATIVE (NEGATIVE); THC Cannibis NEGATIVE (NEGATIVE)
--- NOTE | 2019-08-09 13:14 | ER ---
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 Hx of CVA w/mild right sided weakness. BP 100/57, BGL 157. Coronavirus screen: Patient denies fever greater than 100.4F, cough, shortness of breath, or difficulty breathing. Proceed with normal triage process. Ebola Screen: No symptoms or risks identified at this time. Initial Sepsis Screen: Does the patient meet any 2 criteria? No. Patient's initial sepsis screen is negative. Does the patient have a suspected source of infection? No. Patient's initial sepsis screen is negative. Risk Assessment: Do you want to hurt yourself or someone else? Patient reports no desire to harm self or others. 10:24 Method Of Arrival: EMS: [facility] hb 10:24 Acuity: SVETA 3 hb Historical: - Allergies: 10:29 Morphine; hb 10:29 Sulfa (Sulfonamide Antibiotics); hb 10:29 TRIMETHOPRIM; hb - Home Meds: 10:29 finasteride 5 mg Oral tab 1 tab once daily [Active]; Hemocyte 324 mg (106 mg iron) Oral hb tab daily [Active]; Iron CR Oral 65 mg daily [Active]; losartan 50 mg Oral tab 1 tab once daily [Active]; metformin 500 mg Oral Tb24 1 tab 2 times per day [Active]; Senokot S Oral daily [Active]; Arthritis Pain Relief (acetaminophen) 15 mg every 8 hours Oral [Active]; aspirin 81 mg Oral chew 1 tab once daily [Active]; B12 5,000-100 mcg sublingual lozg daily [Active]; Diabetic Vitamin 800-150-50 mcg-mg-mg Oral cap daily [Active]; duloxetine 20 mg Oral cpDR 1 cap daily [Active]; Vitamin C Oral daily [Active]; Zetia 10 mg Oral tab 1 tab once daily [Active]; - PMHx: 10:29 Arthritis; BPH; Diabetes - IDDM; Hypertension; hb - Immunization history:: Adult Immunizations up to date. - Social history:: Smoking status: Patient denies any tobacco usage or history of. Patient/guardian denies using alcohol, street drugs, The patient lives with family. - Family history:: not pertinent. Screenin:26 Abuse screen: Denies threats or abuse. Denies injuries from another. Nutritional sv screening: No deficits noted. Tuberculosis screening: No symptoms or risk factors identified. Fall Risk None identified. Assessment: 10:32 General: Appears in no apparent distress. Behavior is calm, cooperative. Pain: Denies hb pain. Neuro: Level of Consciousness is awake, alert, obeys commands, Oriented to person, place, time, situation. Cardiovascular: Heart tones S1 S2 present Capillary refill < 3 seconds Patient's skin is warm and dry. Respiratory: Airway is patent Respiratory effort is even, unlabored, Respiratory pattern is regular, symmetrical, Breath sounds are clear bilaterally. GI: No signs and/or symptoms were reported involving the gastrointestinal system. : No signs and/or symptoms were reported regarding the genitourinary system. EENT: No signs and/or symptoms were reported regarding the EENT system. Derm: Skin is pink, warm \T\ dry. Musculoskeletal: No signs and/or symptoms reported regarding the musculoskeletal system. 11:30 Reassessment: Patient appears in no apparent distress at this time. Patient and/or hb family updated on plan of care and expected duration. Pain level reassessed. Patient is alert, oriented x 3, equal unlabored respirations, skin warm/dry/pink. 12:30 Reassessment: Patient appears in no apparent distress at this time. Patient and/or hb family updated on plan of care and expected duration. Pain level reassessed. Patient is alert, oriented x 3, equal unlabored respirations, skin warm/dry/pink. 12:55 Reassessment: Hanny [phone]. hb 13:30 Reassessment: Patient appears in no apparent distress at this time. Patient and/or hb family updated on plan of care and expected duration. Pain level reassessed. Patient is alert, oriented x 3, equal unlabored respirations, skin warm/dry/pink. 14:02 Reassessment: Discharge ordered, awaiting transportation at this time. hb Vital Signs: 10:24 BP 134 / 73; Pulse 103; Resp 16; Temp 97.1; Pulse Ox 100% on R/A; Weight 104.33 kg; hb Height 6 ft. (182.88 cm); Pain 0/10; 11:30 BP 136 / 76; Pulse 104; Resp 16; Pulse Ox 99% on R/A; hb 12:30 BP 134 / 84; Pulse 100; Resp 17; Pulse Ox 99% ; hb 13:30 BP 132 / 82; Pulse 101; Resp 15; Temp 97.3; Pulse Ox 100% on R/A; Pain 0/10; hb 10:24 Body Mass Index 31.19 (104.33 kg, 182.88 cm) hb [place] Coma Score: 13:10 Eye Response: spontaneous(4). Verbal Response: oriented(5). Motor Response: obeys ma2 commands(6). Total: 15. ED Course: 10:24 Patient arrived in ED. am2 10:24 Chirag Gunter MD is Private Physician. am2 10:26 Patient has correct armband on for positive identification. Bed in low position. Call sv light in reach. site monitor on. Pulse ox on. NIBP on. 10:27 Triage completed. hb 10:29 Bryce Sequeira MD is Attending Physician. ma2 10:30 Arm band placed on. hb 10:57 Stroke CXR 1 View In Process Unspecified. EDMS 11:30 Jacqueline Vargas, RN is Primary Nurse. hb 14:11 No provider procedures requiring assistance completed. IV discontinued, intact, hb bleeding controlled, No redness/swelling at site. Pressure dressing applied. Administered Medications: 11:52 Drug: NS 0.9% 500 ml Route: IV; Rate: 1 bolus; Site: left wrist; hb 12:55 Follow up: Response: No adverse reaction; IV Status: Completed infusion; IV Intake: hb 1000ml Intake: 12:55 IV: 1000ml; Total: 1000ml. hb Outcome: 13:13 Discharge ordered by . ma2 14:11 Discharged to home via wheelchair, with family. hb 14:11 Condition: stable 14:11 Discharge instructions given to patient, significant other, Instructed on discharge instructions, follow up and referral plans. medication usage, Demonstrated understanding of instructions, follow-up care, medications. 14:40 Patient left the ED. hb Signatures: Dispatcher [employer] EDMS Lolita Hodges, RN RN Jacqueline Zaragoza RN RN Karol Lopez am2 Bryce Sequeira MD MD ma2
--- NOTE | 2019-08-09 13:15 | EDPHYS ---
Physician Documentation [facility] Name: Tony Zayas Jr Age: 83 yrs Sex: Male : 1935 Arrival Date: 08/09/2019 Time: 10:24 Bed 5 Private MD: Chirag Gunter ED Physician Bryce Sequeira HPI: 08/08 13:10 This 83 yrs old Male presents to ER via EMS with complaints of slurred ma2 speeach. 13:10 Onset: The symptoms/episode began/occurred gradually, 2 hour(s) ago. Associated signs ma2 and symptoms: Pertinent negatives: altered mental status, fever, neck stiffness, sinus congestion, vision loss, vertigo. Severity of symptoms: At its worst the pain was very mild, in the emergency department the pain has resolved. The patient has not experienced similar symptoms in the past. hx of tia had slurred speech 1 hour ago that resolved, . Historical: - Allergies: 10:29 Morphine; hb 10:29 Sulfa (Sulfonamide Antibiotics); hb 10:29 TRIMETHOPRIM; hb - Home Meds: 10:29 finasteride 5 mg Oral tab 1 tab once daily [Active]; Hemocyte 324 mg (106 mg iron) Oral hb tab daily [Active]; Iron CR Oral 65 mg daily [Active]; losartan 50 mg Oral tab 1 tab once daily [Active]; metformin 500 mg Oral Tb24 1 tab 2 times per day [Active]; Senokot S Oral daily [Active]; Arthritis Pain Relief (acetaminophen) 15 mg every 8 hours Oral [Active]; aspirin 81 mg Oral chew 1 tab once daily [Active]; B12 5,000-100 mcg sublingual lozg daily [Active]; Diabetic Vitamin 800-150-50 mcg-mg-mg Oral cap daily [Active]; duloxetine 20 mg Oral cpDR 1 cap daily [Active]; Vitamin C Oral daily [Active]; Zetia 10 mg Oral tab 1 tab once daily [Active]; - PMHx: 10:29 Arthritis; BPH; Diabetes - IDDM; Hypertension; hb - Immunization history:: Adult Immunizations up to date. - Social history:: Smoking status: Patient denies any tobacco usage or history of. Patient/guardian denies using alcohol, street drugs, The patient lives with family. - Family history:: not pertinent. ROS: 13:10 Constitutional: Negative for fever, chills, and weight loss. ma2 13:10 All other systems are negative. Exam: 13:10 Constitutional: This is a well developed, well nourished patient who is awake, alert, ma2 and in no acute distress. Chest/axilla: Normal chest wall appearance and motion. Nontender with no deformity. No lesions are appreciated. Cardiovascular: Regular rate and rhythm with a normal S1 and S2. No gallops, murmurs, or rubs. Normal PMI, no JVD. No pulse deficits. Respiratory: Lungs have equal breath sounds bilaterally, clear to auscultation and percussion. No rales, rhonchi or wheezes noted. No increased work of breathing, no retractions or nasal flaring. Abdomen/GI: Soft, non-tender, with normal bowel sounds. No distension or tympany. No guarding or rebound. No evidence of tenderness throughout. Skin: Warm, dry with normal turgor. Normal color with no rashes, no lesions, and no evidence of cellulitis. MS/ Extremity: Pulses equal, no cyanosis. Neurovascular intact. Full, normal range of motion. Neuro: Awake and alert, GCS 15, oriented to person, place, time, and situation. Cranial nerves II-XII grossly intact. Motor strength 5/5 in all extremities. Sensory grossly intact. Cerebellar exam normal. Normal gait. Vital Signs: 10:24 BP 134 / 73; Pulse 103; Resp 16; Temp 97.1; Pulse Ox 100% on R/A; Weight 104.33 kg; hb Height 6 ft. (182.88 cm); Pain 0/10; 11:30 BP 136 / 76; Pulse 104; Resp 16; Pulse Ox 99% on R/A; hb 12:30 BP 134 / 84; Pulse 100; Resp 17; Pulse Ox 99% ; hb 13:30 BP 132 / 82; Pulse 101; Resp 15; Temp 97.3; Pulse Ox 100% on R/A; Pain 0/10; hb 10:24 Body Mass Index 31.19 (104.33 kg, 182.88 cm) hb [place] Coma Score: 13:10 Eye Response: spontaneous(4). Verbal Response: oriented(5). Motor Response: obeys ma2 commands(6). Total: 15. MDM: 10:29 Patient medically screened. ma2 13:10 Differential diagnosis: migraine, subdural hematoma, tension headache, uremia. Data ma2 reviewed: vital signs, nurses notes. Counseling: I had a detailed discussion with the patient and/or guardian regarding: the historical points, exam findings, and any diagnostic results supporting the discharge/admit diagnosis, the presence of at least one elevated blood pressure reading (>120/80) during this emergency department visit, the need for outpatient follow up. Response to treatment: the patient's symptoms have markedly improved after treatment, the patient's symptoms have resolved after treatment. 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 08/08 10:30 Order name: UDS; Complete Time: 13:06 [facility] 08/08 10:30 Order name: Magnesium; Complete Time: 12:13 [facility] 08/08 10:30 Order name: Hepatic Function; Complete Time: 12:13 [facility] 08/08 10:30 Order name: Troponin (emerg Dept Use Only); Complete Time: 12:13 [facility] 08/08 10:30 Order name: Basic Metabolic Panel; Complete Time: 12:13 [facility] 08/08 10:30 Order name: CBC with Diff; Complete Time: 12:13 [facility] 08/08 10:30 Order name: Protime (+inr); Complete Time: 12:13 [facility] 08/08 10:30 Order name: Ptt, Activated; Complete Time: 12:13 [facility] 08/08 10:30 Order name: CT Stroke Brain w/o Contrast [facility] 08/08 10:30 Order name: Stroke CXR 1 View; Complete Time: 12:13 [facility] 08/08 11:18 Order name: CT; Complete Time: 12:13 EDMS 08/08 12:26 Order name: Urine Dipstick--Ancillary (enter results); Complete Time: 13:06 bd 08/08 10:26 Order name: EKG; Complete Time: 10:27 sv 08/08 10:26 Order name: EKG - Nurse/Tech; Complete Time: 10:26 sv 08/08 10:30 Order name: Accucheck; Complete Time: 11:30 ma08/08 10:30 Order name: Cardiac monitoring; Complete Time: [facility] 08/08 10:30 Order name: IV Saline Lock; Complete Time: [facility] 08/08 10:30 Order name: Labs collected and sent; Complete Time: wi08/08 10:30 Order name: NPO; Complete Time: [facility] 08/08 10:30 Order name: O2 Per Protocol; Complete Time: [facility] 08/08 10:30 Order name: O2 Sat Monitoring; Complete Time: wi08/08 10:30 Order name: Stroke Swallow Screen; Complete Time: : Administered Medications: 11:52 Drug: NS 0.9% 500 ml Route: IV; Rate: 1 bolus; Site: left wrist; hb 12:55 Follow up: Response: No adverse reaction; IV Status: Completed infusion; IV Intake: hb 1000ml Disposition: 08/09/19 13:13 Discharged to Home. Impression: Slurred speech. - Condition is Stable. - Discharge Instructions: Transient Ischemic Attack, [id number], Diabetes and Standards of Medical Care. - Medication Reconciliation Form, Thank You Letter, Antibiotic Education, Prescription Opioid Use form. - Follow up: Private Physician; When: Tomorrow; Reason: Continuance of care. Signatures: Dispatcher [employer] Lolita Ornelas, RN ZUHAIR Jacqueline Vargas RN RN Bryce Sequeira MD MD ma2 Corrections: (The following items were deleted from the chart) 14:40 13:13 08/09/2019 13:13 Discharged to Home. Impression: Slurred speech. Condition is hb Stable. Forms are Medication Reconciliation Form, Thank You Letter, Antibiotic Education, Prescription Opioid Use. Follow up: Private Physician; When: Tomorrow; Reason: Continuance of care. ma2
[2019-08-09 14:52] VITALS: BP 132/82; TEMP 97.3; O2SAT 100
--- NOTE | 2019-08-09 16:40 | EKG ---
Test Date: 2019-08-09 Test Time: 10:26:32 Rand Butter: HODA MEASUREMENT RESULTS: Intervals: Rate: 101 LA: 216 QRSD: 166 QT: 400 QTc: 518 [place]: P: LA: 216 QRS: 247 T: 81 INTERPRETIVE STATEMENTS: Sinus tachycardia with 1st degree AV block Right superior axis deviation Nonspecific intraventricular block Abnormal ECG Compared to ECG 06/06/2017 06:55:15 First degree AV block now present Right superior axis now present Atrial premature complex(es) no longer present Left-axis deviation no longer present Electronically Signed On 08-09-19 16:39:46 CDT by Amadou Mayo
== END 2019-08-09 14:40 | disposition home or self-care (01) ==
LOC: ER 10:23
DX: R47.81 Slurred speech (principal); I10 Essential (primary) hypertension; E11.9 Type 2 diabetes mellitus without complications; Z79.82 Long term (current) use of aspirin; Z88.2 Allergy status to sulfonamides; Z88.5 Allergy status to narcotic agent; Z88.8 Allergy status to other drugs, medicaments and biological substances
CPT/HCPCS: 93005; 85025; 80048; 36415; 83735; 85610; 80076; 80307 ×8; 85730; 81003; 84484; 70450; 71045; 96360; 99284; J7040; J7030

== ENCOUNTER 2020-02-25 19:20 | Inpatient (IN) | payer OTHER ==
--- OUTSIDE RECORDS SUMMARY | 2020-02-25 19:22 | XMS REPORT | Continuity of Care Document ---
:1935 Author Organization [employer] Care Team Providers Name Role Phone [employer] Unavailable Un available Problems Problem Status Onset Classification Date Comments Sourc e Date Reported M54.5 - LOW BACK Active 02/28/20 [facility] PAIN 17 [place] Pneumococcal Resolved Problem 03/02/2017 [facility] OPI D infectious [place] disease (disorder) Simple obesity Active Problem 03/02/2017 [facility] O PID (disorder) [facility] Medications No Data Provided for This Section Allergies, Adverse Reactions, Alerts Substance Category Reaction Severity Reaction Status Date Comments S ource type Reported Bactrim Assertion Drug Active MH OPI D allergy [facility] morphine Assertion Drug Active MH OP ID allergy [facility] Immunizations No Data Provided for This Section Results No Data Provided for This Section Pathology Reports No Data Provided for This Section Diagnostic Reports Report Value Date Source Spine lumbar EXAM: XR LUMBAR SPINE 4 VIEWS 02/27/2017 [facility] flex/ext 2 view DX DATE: 02/27/2017 3:04 PM CDT INDICATION: - M54.5 Low back pain M54.16 Ra diculopathy, lumbar region COMPARISON: None TECHNIQUE: AP view, lateral views in neutral position, flexion and extension, of the lumbar spine FINDINGS: 5 lumbar type, non-rib bearing vertebr al bodies are present. There is grade 1 anterolisth esis of L4 over L5 measuring approximately 3 mm without significant motion on flexion or extension. Moderate L4-5 disc height loss. Multilevel endplate sclerosis and marginal osteo phytes are present. 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 Multilevel fa cet arthropathy, most pronounced in the lower magdy mbar spine. Vertebral body heights and remaining disk height s are maintained. There is diffuse osteopenia. Incompletely imaged bilateral hip arthroplasty. Gas-distended bowel loop is seen in the mid abdomen. Atherosclerotic vascular calcifications are present. 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 No significant motion on flexion or extension. Consultation Notes No Data Provided for This Section Discharge Summaries No Data Provided for This Section History and Physicals No Data Provided for This Section Vital Signs No Data Provided for This Section Encounters Location Location Encounter Encounter Reason Attending ADM NC Stat Source Details Type Number For Provider Date Date Visit Outpatient [id number] ABRIL NICE 02/26 [facility] [id number] FRANT[facility] 02/27 [facility] [id number] Gwendolyn Landry 02/27 02/28 [facility] [id number] GWENDOLYN LANDRY 03/12 [facility] Procedures Procedure Code Date Perfomer Comments Source AVR - Aortic valve [id number] OPI D replacement [facility] Cataract surgery [id number] [facility] [place] Hip replacement [id number] [facility] Operation on neck [id number] [facility] Assessment and Plan No Data Provided for This Section Plan of Care No Data Provided for This Section Social History Social History Date Source Social History TypeResponse 02/26/2017 [facility] Smoking Status Former smoker; Type: Cigarettes; Exposur e to Tobacco Smoke None; Cigarette Smoking Last 365 Days No; Reg Smoking Cessation Counseling No Family History No Data Provided for This Section Advance Directives No Data Provided for This Section Functional Status No Data Provided for This Section
--- OUTSIDE RECORDS SUMMARY | 2020-02-25 19:22 | XMS REPORT | Clinical Summary ---
:1935 Author Organization [employer] Address [address] [place] [id number] Care Team Providers Name Role Phone Asked, Pcp Primary Care Provider Unavailable Allergies Not on File Medications Not on file Active Problems Not on file Social History Tobacco Use Types Packs/Day Years Used Date Never Assessed Sex Assigned at Date Recorded Not on file Last Filed Vital Signs Not on file Plan of Treatment Health Maintenance Due Date Last Done Comments SHINGLES VACCINES (#1) 1986 65+ PNEUMOCOCCAL VACCINE (1 of 1 - PPSV23) 2001 INFLUENZA VACCINE 12/18/2019 Results Not on fileafter 02/24/2019 Advance Directives For more information, please contact: [phone] Type Date Recorded 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
--- OUTSIDE RECORDS SUMMARY | 2020-02-25 19:22 | XMS REPORT | Continuity of Care Document ---
:1935 Author Organization [facility] t Address [address] [place] [address] Care Team Providers Name Role Phone Asked, Pcp Primary Care Physician Unavailable Doctor Unassigned, Name Attending Clinician Unavailable Mike MALDONADO Attending Clinician Sylvester Montalvo Attending Clinician Problems Condition Condition Condition Status Onset Resolution Last Treating Co mments Source Name Details Category Date Date Treatment Clinician Date M54.5 - Diagnosis Active 2016-052017-02-27 Me moria LOW BACK 0-12 15:00:00 l PAIN M54.5 - 00:01: [facility] LOW BACK 00 PAIN Active 02/27/2017 [facility] Pneumococc Problem Resolve 2017-03-02 Memoria al d 05:53:19 l infectious Sanju n disease Pneumococc (disorder) al infectious disease (disorder) Resolved Problem 03/02/2017 [facility] Simple Problem Active 2017-03-02 Mem[facility] obesity 05:53:19 l (disorder) Simple [facility] obesity (disorder) Active Problem 03/02/2017 [facility] Allergies, Adverse Reactions, Alerts Allergy Allergy Status Severity Reaction(s) Onset Inactive Treating Comm ents Source Name Type Date Date Clinician Bactrim Bactrim Active Memyana Ruiz morphine morphine Active Memamy Ruiz Social History Social Habit Start Date Stop Date Quantity Comments Source Sex Assigned At [place] Smoking Status Start Date Stop Date Source Social History 2017-02-26 20:13:07 2017-02-26 20:13:07 [facility] Medications This patient has no known medications. Procedures Procedure Date / Time Performed Performing Clinician Elizabeth barry AVR - Aortic valve [facility] replacement Cataract surgery [facility] Hip replacement [facility] Operation on neck [facility] nn Plan of Care Planned Activity Planned Date Details Comments Source Future Scheduled 2019-12-18 INFLUENZA VACCINE [facility] 00:00:00 [code = INFLUENZA VACCINE] Future Scheduled 2001 65+ PNEUMOCOCCAL [facility] 00:00:00 VACCINE (1 of 1 - PPSV23) [code = 65+ PNEUMOCOCCAL VACCINE (1 of 1 - PPSV23)] Future Scheduled 1986 SHINGLES VACCINES (#1) [place] [facility] 00:00:00 [code = SHINGLES VACCINES (#1)] Encounters Start End Encounter Admission Attending Care Care Encounter Source Date/Time Date/Time Type Type Clinicians Facility Department ID 2020-01-03 2020-01-03 Orders Doctor SNOW [id number] 00:00:00 00:00:00 Only Unassigned, MARYBETH [id number] [place] [facility] [id number] [id number] 2019-12-27 2019-12-27 Telephone [facility] [id number] 00:00:00 00:00:00 Brady Sanchez [id number] [place] [id number] Professio [id number] [address] 2019-11-23 2019-11-23 Office [facility] [id number] 11:21:05 12:43:25 Visit Brady [place] [id number] [place] [id number] Professio [id number] [address] 2019-11-23 2019-11-23 Orders Doctor GWENDOLYN [id number] 00:00:00 00:00:00 Only Unassigned, MARYBETH [id number] [place] [id number] [id number] 2017-02-27 2017-02-27 Outpatient Gwendolyn Montalvo [facility] [id number] 14:50:00 23:59:00 C 00 Results This patient has no known results.
[2020-02-25] MEDS ORDERED: ONDANSETRON 4 MG/2 ML VIAL ONE (20:39)
[2020-02-25] MEDS ORDERED: MORPHINE 2 MG/ML SYR ONE (20:39)
[2020-02-25 20:40] LABS: Absolute Lymphocytes (CBC) 0.9 K/uL (0.7-4.9); Basophils % 0.5 % (0-1.3); Lymphocytes % 10.2 % (15.3-44.8); MPV 8.7 fL (7.6-11.3); RBC Red Blood Cell Count 3.32 M/uL (4.33-5.43)
[2020-02-25 20:44] LABS: Protime INR 1.06
--- NOTE | 2020-02-25 20:51 | RAD REPORT ---
EXAM DESCRIPTION: RAD - Foot Right 3 View - 02/25/2020 8:41 pm CLINICAL HISTORY: Pain;Swelling COMPARISON: Foot Right Wo Cont dated 02/07/2020; Foot Right 3 View dated 01/18/2020 FINDINGS: No fracture, dislocation or periosteal reaction. No acute or destructive bone process. No air or foreign body in the soft tissues. No significant change from the prior study. IMPRESSION: Negative right foot examination for acute finding.
[2020-02-25 20:56] LABS: Bilirubin Direct 0.1 mg/dL (0-0.2); Bilirubin Total 0.3 mg/dL (0.2-1.0); Potassium 4.9 mmol/L (3.5-5.1); Protein, Total 7.5 g/dL (6.4-8.2)
--- NOTE | 2020-02-25 21:25 | EDPHYS ---
Physician Documentation [facility] Name: Tony Zayas Jr Age: 84 yrs Sex: Male : 1935 Arrival Date: 02/25/2020 Time: 19:25 Bed 15 Private MD: ED Physician Cecil Espinal HPI: 02/24 20:17 This 84 yrs old Male presents to ER via Wheelchair with complaints of Toe mh7 Injury. 20:17 The patient presents with pain, that is acute, swelling. The complaints affect the mh7 right foot, right 2nd toe. Context: The problem was sustained at an unknown location, resulted from an unknown cause, Mechanism of Injury: Unknown. Onset: The symptoms/episode began/occurred 4 day(s) ago. Modifying factors: The symptoms are alleviated by nothing, the symptoms are aggravated by nothing. Associated signs and symptoms: Pertinent positives: swelling, purple discoloration, Pertinent negatives: calf tenderness, fever, nausea, numbness, rash, tingling, vomiting, warmth, weakness. Severity of symptoms: At their worst the symptoms were moderate, earlier today, in the emergency department the symptoms are unchanged. Historical: - Allergies: 19:33 TRIMETHOPRIM; ll1 19:33 Sulfa (Sulfonamide Antibiotics); ll1 19:33 Morphine; ll1 - PMHx: 19:33 Arthritis; BPH; Diabetes - IDDM; Hypertension; wound care; ll1 - Immunization history:: Pneumococcal vaccine is up to date, Flu vaccine is up to date. - Social history:: Smoking status: Patient denies any tobacco usage or history of. ROS: 20:17 Constitutional: Negative for fever, chills, and weight loss, Eyes: Negative for injury, mh7 pain, redness, and discharge, ENT: Negative for injury, pain, and discharge, Neck: Negative for injury, pain, and swelling, Cardiovascular: Negative for chest pain, palpitations, and edema, Respiratory: Negative for shortness of breath, cough, wheezing, and pleuritic chest pain, Abdomen/GI: Negative for abdominal pain, nausea, vomiting, diarrhea, and constipation, Back: Negative for injury and pain, : Negative for injury, bleeding, discharge, and swelling, Neuro: Negative for headache, weakness, numbness, tingling, and seizure, Psych: Negative for depression, anxiety, suicide ideation, homicidal ideation, and hallucinations, Allergy/Immunology: Negative for hives, rash, and allergies, Endocrine: Negative for neck swelling, polydipsia, polyuria, polyphagia, and marked weight changes, Hematologic/Lymphatic: Negative for swollen nodes, abnormal bleeding, and unusual bruising. Exam: 20:17 Constitutional: This is a well developed, well nourished patient who is awake, alert, mh7 and in no acute distress. Head/Face: Normocephalic, atraumatic. Eyes: Pupils equal round and reactive to light, extra-ocular motions intact. Lids and lashes normal. Conjunctiva and sclera are non-icteric and not injected. Cornea within normal limits. Periorbital areas with no swelling, redness, or edema. Neck: Trachea midline, no thyromegaly or masses palpated, and no cervical lymphadenopathy. Supple, full range of motion without nuchal rigidity, or vertebral point tenderness. No Meningismus. Chest/axilla: Normal chest wall appearance and motion. Nontender with no deformity. No lesions are appreciated. Cardiovascular: Regular rate and rhythm with a normal S1 and S2. No gallops, murmurs, or rubs. Normal PMI, no JVD. No pulse deficits. Respiratory: Lungs have equal breath sounds bilaterally, clear to auscultation and percussion. No rales, rhonchi or wheezes noted. No increased work of breathing, no retractions or nasal flaring. Abdomen/GI: Soft, non-tender, with normal bowel sounds. No distension or tympany. No guarding or rebound. No evidence of tenderness throughout. Back: No spinal tenderness. No costovertebral tenderness. Full range of motion. 20:17 Neuro: Awake and alert, GCS 15, oriented to person, place, time, and situation. Cranial nerves II-XII grossly intact. Motor strength 5/5 in all extremities. Sensory grossly intact. Cerebellar exam normal. Normal gait. Psych: Awake, alert, with orientation to person, place and time. Behavior, mood, and affect are within normal limits. 20:17 Musculoskeletal/extremity: Extremities: noted in the bilateral lower extremity ulcerations without erythema, tenderness, swelling, or discharge: noted in the dorsal right foot swelling, erythema: noted in the right great toe dorsal ulceration, at DIP, black dicoloration: Vital Signs: 19:30 BP 132 / 42; Pulse 90; Resp 18; Temp 97.7; Pulse Ox 95% ; Weight 100.24 kg; Height 6 ll1 ft. 0 in. (182.88 cm); Pain 10/10; 20:30 BP 146 / 96; Pulse 84; Resp 18 S; Pulse Ox 97% on R/A; ca1 21:20 BP 145 / 60; Pulse 87; Resp 18 S; Pulse Ox 97% on R/A; ca1 22:26 BP 127 / 57; Pulse 82; Resp 15 S; Pulse Ox 96% on R/A; ca1 19:30 Body Mass Index 29.97 (100.24 kg, 182.88 cm) ll1 MDM: 19:59 Patient medically screened. [facility] 21:20 Differential diagnosis: fracture, sprain, penetrating trauma, arthritis, gout, [facility] cellulitis, Gangrene, osteomyelitis. Data reviewed: vital signs, nurses notes, old medical records, lab test result(s), CBC, electrolytes, urinalysis, radiologic studies, plain films. Data interpreted: Pulse oximetry: on room air is 97 %. Interpretation: normal. Counseling: I had a detailed discussion with the patient and/or guardian regarding: the historical points, exam findings, and any diagnostic results supporting the discharge/admit diagnosis, the presence of at least one elevated blood pressure reading (>120/80) during this emergency department visit, lab results, radiology results, the need for further work-up and treatment in the hospital. Response to treatment: the patient's symptoms have mildly improved after treatment. Physician consultation: oRb Crenshaw MD regarding patient's condition, and will see patient in inpatient room, would like admission per Dr. Dena Lambert MD. 02/24 20:00 Order name: CBC with Diff; Complete Time: 20:41 [facility] 02/24 20:00 Order name: Basic Metabolic Panel; Complete Time: 21:08 [facility] 02/24 20:00 Order name: Protime (+inr); Complete Time: 21:08 [facility] 02/24 20:00 Order name: Ptt, Activated; Complete Time: 21:08 [facility] 02/24 20:00 Order name: LFT's; Complete Time: 21:08 [facility] 02/24 20:00 Order name: Blood Culture Adult (2) [facility] 02/24 20:00 Order name: Lactate; Complete Time: 21:08 7 02/24 21:41 Order name: CBC with Automated Diff EDMS 02/24 21:41 Order name: CBC with Automated Diff EDMS 02/24 21:41 Order name: CBC with Automated Diff EDMS 02/24 21:41 Order name: CBC with Automated Diff EDMS 02/24 21:41 Order name: Comprehensive Metabolic Panel EDMS 02/24 21:41 Order name: Comprehensive Metabolic Panel EDMS 02/24 21:41 Order name: Comprehensive Metabolic Panel EDMS 02/24 20:00 Order name: Foot Right 3 View XRAY; Complete Time: 21:08 7 02/24 20:25 Order name: US Lower Extremity Artery Uni Ltd [facility] 02/24 20:25 Order name: US Extremity Venous Unilateral Ltd [facility] 02/24 21:41 Order name: CONS Pharmacy Consult EDMS 02/24 21:41 Order name: CONS Physician Consult EDMS 02/24 21:41 Order name: Consistent Carb (ADA) [address] Mick EDMS 02/24 21:41 Order name: Comprehensive Metabolic Panel EDMS 02/24 21:49 Order name: UR CREAT EDMS 02/24 21:49 Order name: UR SODIUM EDMS 02/24 22:07 Order name: Urine Dipstick--Ancillary (enter results) tt3 02/24 22:08 Order name: Urine Dipstick-Ancillary EDMS 02/24 21:24 Order name: Urine Dipstick-Ancillary (obtain specimen); Complete Time: 21:59 7 02/24 21:49 Order name: Social Service Consult EDMS 02/24 22:14 Order name: CONS Physician Consult EDMS Administered Medications: 20:33 Drug: Zofran (Ondansetron) 4 mg Route: IVP; Site: right forearm; ca1 21:59 Follow up: Response: No adverse reaction; Nausea is decreased ca1 20:33 Not Given (Patient Refused): morphine 2 mg IVP once; (PAIN>8) RASS on ADMN: Combtv4, ca1 Very Agttd3, Agttd2, Rstlss1, AlertClm0, Drwsy-1, LtSdtn-2, ModSdtn-3, DpSdtn-4, UnArsble-5 x2 21:15 Drug: Demerol 25 mg {Note: rass 0.} Route: IVP; Site: right hand; ca1 22:00 Follow up: Response: No adverse reaction; Pain is decreased; RASS: Alert and Calm (0) ca1 21:59 Drug: Zosyn 3.375 grams Route: IVPB; Infused Over: 60 mins; Site: left hand; ca1 22:41 Follow up: Response: No adverse reaction; IV Status: Infusion continued upon admission ca1 Disposition: 02/25/20 21:24 Hospitalization ordered by Dena Lambert for Inpatient Admission. 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 - Bed requested for Telemetry/MedSurg (Inpatient). - Status is Inpatient Admission. ca1 - Condition is Stable. - Problem is new. - Symptoms have improved. Signatures: Dispatcher [employer] EDMS Sherrell Awan RN RN tl1 Emily Alcala RN RN ca1 Daniel Dodge RN RN ll1 Cecil Espinal MD MD mh7 Corrections: (The following items were deleted from the chart) 22:07 21:24 Hospitalization Ordered by Dena Lambert MD for Inpatient Admission. 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 Bed requested for Telemetry/MedSurg (Inpatient). Status is Inpatient Admission. Condition is Stable. Problem is new. Symptoms have improved. [facility] 22:42 22:07 02/25/2020 21:24 Hospitalization Ordered by Dena Lambert MD for Inpatient ca1 Admission. 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 Bed requested for Telemetry/MedSurg (Inpatient). Status is Inpatient Admission. Condition is Stable. Problem is new. Symptoms have improved. tl1
--- NOTE | 2020-02-25 21:25 | ER ---
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 Been monitoring that toe for 3-4 months. Unable to sleep well. Coronavirus screen: Client denies travel out of the [place] in the last 14 days. At this time, the client does not indicate any symptoms associated with coronavirus-19. Ebola Screen: Patient denies travel to an Ebola-affected area in the 21 days before illness onset. Initial Sepsis Screen: Does the patient meet any 2 criteria? No. Patient's initial sepsis screen is negative. Does the patient have a suspected source of infection? Yes: Skin breakdown/wound. Risk Assessment: Do you want to hurt yourself or someone else? Patient reports no desire to harm self or others. Onset of symptoms was February 19, 2020. 19:30 Method Of Arrival: Wheelchair ll1 19:30 Acuity: SVETA 3 ll1 Historical: - Allergies: 19:33 TRIMETHOPRIM; ll1 19:33 Sulfa (Sulfonamide Antibiotics); ll1 19:33 Morphine; ll1 - PMHx: 19:33 Arthritis; BPH; Diabetes - IDDM; Hypertension; wound care; ll1 - Immunization history:: Pneumococcal vaccine is up to date, Flu vaccine is up to date. - Social history:: Smoking status: Patient denies any tobacco usage or history of. Screenin:00 Abuse screen: Denies threats or abuse. Denies injuries from another. Nutritional ca1 screening: No deficits noted. Tuberculosis screening: No symptoms or risk factors identified. Fall Risk Secondary diagnosis (15 points) impaired mobility, IV access (20 points). Ambulatory Aid- Crutches/Cane/Walker (15 pts). Gait- Impaired (20 pts.). Total Munoz Fall Scale indicates High Risk Score (45 or more points). Fall prevention measures have been instituted. Side Rails Up X 2 Frequent Obs/Assessments Occuring Family Present and informed to notify staff if the need to leave the bedside As available patient and family educated on Fall Prevention Program and Strategies. Assessment: 19:40 General: Appears in no apparent distress. comfortable, Behavior is calm, cooperative, ca1 appropriate for age. Pain: Complains of pain in right foot Pain does not radiate. Neuro: Level of Consciousness is awake, alert, obeys commands, Oriented to person, place, time, situation. Cardiovascular: Heart tones S1 S2 present Capillary refill < 3 seconds Patient's skin is warm and dry. Respiratory: Airway is patent Respiratory effort is even, unlabored, Respiratory pattern is regular, symmetrical, Breath sounds are clear bilaterally. GI: Abdomen is round non-distended, Bowel sounds present X 4 quads. Abd is soft and non tender X 4 quads. : No signs and/or symptoms were reported regarding the genitourinary system. EENT: No signs and/or symptoms were reported regarding the EENT system. Derm: Skin is fragile, is thin, Skin is pink, warm \\T\\ dry. Wound noted right second toe and Right second toenail Wound is black with surrounding skin red and swollen, warm to touch. Musculoskeletal: Circulation, motion, and sensation intact. Capillary refill < 3 seconds, Swelling present in right foot and left foot. 20:33 Reassessment: Pt states, " no morphine, I go crazy with that". Notified provider. ca1 20:45 Reassessment: Patient appears in no apparent distress at this time. Patient and/or ca1 family updated on plan of care and expected duration. Pain level reassessed. Patient is alert, oriented x 3, equal unlabored respirations, skin warm/dry/pink. 20:54 Reassessment: US at bedside. ca1 21:15 Reassessment: states, :"They gave him Demerol for pain". Notified provider. VO ca1 Demerol 25mg IV. 21:39 Reassessment: Patient appears in no apparent distress at this time. Patient and/or ca1 family updated on plan of care and expected duration. Pain level reassessed. 21:40 Reassessment: Vancomycin called to after hours pharmacy. No response at this time. ca1 22:19 Reassessment: Patient appears in no apparent distress at this time. Patient and/or ca1 family updated on plan of care and expected duration. Pain level reassessed. Patient is alert, oriented x 3, equal unlabored respirations, skin warm/dry/pink. Vital Signs: 19:30 BP 132 / 42; Pulse 90; Resp 18; Temp 97.7; Pulse Ox 95% ; Weight 100.24 kg; Height 6 ll1 ft. 0 in. (182.88 cm); Pain 10/10; 20:30 BP 146 / 96; Pulse 84; Resp 18 S; Pulse Ox 97% on R/A; ca1 21:20 BP 145 / 60; Pulse 87; Resp 18 S; Pulse Ox 97% on R/A; ca1 22:26 BP 127 / 57; Pulse 82; Resp 15 S; Pulse Ox 96% on R/A; ca1 19:30 Body Mass Index 29.97 (100.24 kg, 182.88 cm) ll1 ED Course: 19:25 Patient arrived in ED. cf2 19:33 Triage completed. 1 19:33 Arm band placed on Patient placed in an exam room, on a stretcher. 1 19:44 Cecil Espinal MD is Attending Physician. 7 19:59 Emily Alcala, ZUHAIR is Primary Nurse. ca1 20:20 No provider procedures requiring assistance completed. Inserted saline lock: 22 gauge ca1 in right forearm, using aseptic technique. Blood collected. 20:20 Initial lab(s) drawn, by wv, sent to lab. First set of blood cultures drawn by me. ca1 20:41 Foot Right 3 View XRAY In Process Unspecified. EDMS 21:00 Patient has correct armband on for positive identification. Bed in low position. Call ca1 light in reach. Side rails up X2. Pulse ox on. NIBP on. Warm blanket given. 21:09 US Lower Extremity Artery Uni Ltd In Process Unspecified. EDMS 21:09 US Extremity Venous Unilateral Ltd In Process Unspecified. EDMS 21:23 Dena Lambert MD is Hospitalizing Provider. mh7 21:36 Inserted saline lock: 22 gauge in left hand, using aseptic technique. Blood collected. ca1 21:36 Second set of blood cultures drawn by me. ca1 22:24 Patient admitted, IV remains in place. ca1 Administered Medications: 20:33 Drug: Zofran (Ondansetron) 4 mg Route: IVP; Site: right forearm; ca1 21:59 Follow up: Response: No adverse reaction; Nausea is decreased ca1 20:33 Not Given (Patient Refused): morphine 2 mg IVP once; (PAIN>8) RASS on ADMN: Combtv4, ca1 Very Agttd3, Agttd2, Rstlss1, AlertClm0, Drwsy-1, LtSdtn-2, ModSdtn-3, DpSdtn-4, UnArsble-5 x2 21:15 Drug: Demerol 25 mg {Note: rass 0.} Route: IVP; Site: right hand; ca1 22:00 Follow up: Response: No adverse reaction; Pain is decreased; RASS: Alert and Calm (0) ca1 21:59 Drug: Zosyn 3.375 grams Route: IVPB; Infused Over: 60 mins; Site: left hand; ca1 22:41 Follow up: Response: No adverse reaction; IV Status: Infusion continued upon admission ca1 Outcome: 21:24 Decision to Hospitalize by Provider. [facility] 22:24 Admitted to Med/surg accompanied by tech, via stretcher, room 232, with chart, Report ca1 called to ZUHAIR Mosley 22:24 Condition: stable 22:24 Instructed on the need for admit. 22:42 Patient left the ED. ca1 Signatures: Dispatcher [employer] EDMS Emily Alcala RN RN ca1 Keyona Nolen cf2 Daniel Dodge RN RN ll1 Cecil Espinal MD MD 7 Corrections: (The following items were deleted from the chart) 21:00 19:40 Musculoskeletal: Circulation, motion, and sensation intact. Capillary refill < 3 ca1 seconds, ca1 21:39 20:40 Reassessment: Pt states, " no morphine, I go crazy with that" ca1 ca1 21:40 20:30 BP 146 / 96; Pulse 44bpm; Resp 18bpm; Spontaneous; Pulse Ox 97% RA; ca1 ca1 21:40 21:20 Pulse 87bpm; Resp 18bpm; Spontaneous; Pulse Ox 97% RA; ca1 ca1
[2020-02-25] MEDS ORDERED: MEPERIDINE HCL 50 MG/ML ONE (21:33)
[2020-02-25] MEDS ORDERED: MORPHINE 2 MG/ML SYR IV PRN (21:34)
[2020-02-25] MEDS ORDERED: ONDANSETRON 4 MG/2 ML VIAL IV PRN ×2 (21:34→21:37)
[2020-02-25] MEDS ORDERED: HYDRALAZINE HCL 20 MG/ML VIAL IV PRN (21:37)
[2020-02-25] MEDS ORDERED: GLUCAGON 1 MG/VIAL IM PRN (21:38)
[2020-02-25] MEDS ORDERED: PIPER/TAZO/NS 3.375gm 3.375 GM/100 ML BAG IVPB SCH (21:38)
[2020-02-25] MEDS: INSULIN GLARGINE 100 UNITS/ML SQ SCH (21:38)
[2020-02-25] MEDS ORDERED: D50W 25 GM/50 ML SYRINGE/VIAL IV PRN (21:38)
--- NOTE | 2020-02-25 21:48 | P.HP ---
Certification for Inpatient With expected LOS: >2 Midnights Patient will require the following post-hospital care: Home Health Services Practitioner: I am a practitioner with admitting privileges, knowledge of patient current condition, hospital course, and medical plan of care. 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 Gunter in wound clinic, admitted after being developing new redness and worsening pain over the right foot . states lesions started as mild redness over the mid anterior foot but worsen to the digits , asociated , worsneing dark eschar ove rthe second right toe digit . He was seen in clinic yesterday and started on cefdinir but symptoms worsens. . Patient denies any fever or chills. He denies any nausea or vomiting. He admits to pain over the right foot digits. As per referring physician , request for surgical evaluation with Dr. Farrell has been consulted. Allergies clindamycin Allergy (Verified 02/13/20 16:23) Hives doxycycline Allergy (Verified 02/13/20 16:23) Hives sulfamethoxazole [From Bactrim] Allergy (Verified 06/05/17 08:19) Hives/Rash trimethoprim [From Bactrim] Allergy (Verified 06/05/17 08:19) Hives/Rash morphine Adverse Reaction (Verified 06/05/17 08:19) confusion,"Makes me crazy" Home Medications: Promethazine HCl/Codeine [Promethazine-Codeine Syrup] 5 ml PO Q6HP PRN #180 syrup 08/01/14 Aspirin [Aspirin EC 81 MG] 81 mg PO DAILY 04/14/17 Codeine/APAP [Tylenol W/Codeine #3 tab] 1 tab PO Q6HP PRN 06/05/17 Insulin Degludec [Tresiba Flextouch U-100] 26 unit SQ DAILY 06/05/17 Ascorbic Acid [Vitamin C] 1,000 mg PO BID 06/09/17 Cyanocobalamin (Vitamin B-12) [Vitamin B12] 5,000 mcg PO DAILY 06/09/17 Finasteride 5 mg PO DAILY 06/09/17 Iron 65 mg PO DAILY 06/09/17 Iron/FA/Vit B-Com W/C [Hemocyte Plus*] 1 tab PO DAILY 06/09/17 Sennosides/Docusate Sodium [Senexon-S Tablet] 1 each PO BEDTIME PRN 06/09/17 - Past Medical/Surgical History Diabetic: Yes -: DM -: HTN -: [place] -: Skin CA -: Incontinence -: arthritis -: bph -: 2011 aortic valve replacement -: 2017 colon surgery -: cataract 2014 -: ctr [id number] -: left hip replaced 2010 -: right hip 2005 -: left thumb 2003 -: right shoulder 2001 - Family History Father -: Diabetes, Cancer Notes: cancer in throat Mother -: Hypertension, Diabetes, Stroke Sister -: Diabetes, Cancer, Kidney disease Notes: had dialysis Brother -: Diabetes - Social History Alcohol use: No CD- Drugs: No Caffeine use: Yes Review of Systems 10-point ROS is otherwise unremarkable Physical Examination - Physical Exam General: Alert, In no apparent distress, Oriented x3 HEENT: Atraumatic, Normocephalic, PERRLA Neck: Supple, 2+ carotid pulse no bruit, JVD not distended Respiratory: Clear to auscultation bilaterally, Normal air movement Cardiovascular: No edema, Normal pulses, Regular rate/rhythm Gastrointestinal: Normal bowel sounds, Soft and benign, Non-distended Musculoskeletal: No clubbing, No swelling, No contractures, Tenderness, Warmth Integumentary: Other (dark eschar over 2nd toe digit , erythema spreading proximal to near ankle ) Neurological: Normal gait, Normal speech, Normal strength at 5/5 x4 extr Rectal: Normal, Average - Studies Laboratory Data (last 24 hrs) 02/25/20 20:20: PT 12.5, INR 1.06, APTT 29.7 02/25/20 20:20: Sodium 135 L, Potassium 4.9, BUN 112 H, Creatinine 2.37 H, Glucose 350 H, Total Bilirubin 0.3, AST 13 L, ALT 19, Alkaline Phosphatase 106 02/25/20 20:20: WBC 8.6, Hgb 11.3 L, Hct 33.0 L, Plt Count 248 Assessment and Plan - Problems (Diagnosis) (1) Acute renal failure Current Visit: No Status: Acute (2) Diabetic ulcer of toe of right foot Current Visit: No Status: Acute (3) Hypertension Current Visit: No Status: Acute (4) Diabetes mellitus Onset Date: 04/15/17 Current Visit: No Status: Chronic Plan to discharge in: Greater than 2 days - Advance Directives Does patient have a Living Will: No Does patient have a Durable POA for Healthcare: Yes Physician Review: Patient Assessed, Agree with Above Assessment and Plan Physician Review Additional Text: # Right foot ulcer/cellulitis - we will obtain blood culture. Will consult surgery for evaluation and possible debridement -we start empirical antibiotics with Zosyn Renally dose antibiotics for now # Acute on chronic kidney disease-baseline creatinine of 1.6-1.7 Creatinine of 2.6 now noted Will consult renal team Obtained urine studies for fraction excretion of sodium next can start gentle IVF with normal saline # HYPERTENSION-CONTROLLED, DO IV HYDRALAZINE #DIABETES MELLITUS-with hyperglycemia Hold stress eval Start Levemir 50 units b.i.d. with surgery ski insulin sliding scale Start Accu-Cheks Q a.c. week HX Do diabetic diet DVT prophylaxis-subcutaneous Lovenox Disposition-possibly also to stay for more than 2 days
[2020-02-25] MEDS: NA CHLORIDE 0.9% 1,000 ML IV SCH ×2 (22:00→23:24)
[2020-02-25 22:13] LABS: Urine Blood NEGATIVE (NEG); Urine Glucose NEGATIVE (NEG); Urine Protein NEGATIVE (NEG); Urine Specific Gravity 1.025 (1.005-1.030); Urine pH 5.5 (5.0-7.0)
[2020-02-25] MEDS ORDERED: MORPHINE 2 MG/ML SYR IV ONE (22:14)
[2020-02-25 23:06] VITALS: BMI 29.9
[2020-02-25] MEDS ORDERED: HYDROCODONE/APAP 5/325 MG TAB PO PRN (23:39)
[2020-02-26] MEDS: INSULIN GLARGINE 100 UNITS/ML SQ SCH ×4 (00:02→21:22)
[2020-02-26] MEDS: HYDROCODONE/APAP 5/325 MG TAB PO PRN ×4 (00:06→21:24)
[2020-02-26] MEDS ORDERED: PIPERACIL/TAZO 2.25 GM VIAL IV ONE (04:08)
[2020-02-26] MEDS ORDERED: NA CHLORIDE 0.9% 100 ML ONE (04:23)
[2020-02-26] MEDS: PIPER/TAZO/NS 2.25gm 2.25 GM/50 ML BAG IVPB SCH ×3 (06:00→21:22)
[2020-02-26 06:37] LABS: Absolute Lymphocytes (CBC) 0.8 K/uL (0.7-4.9); Basophils % 0.4 % (0-1.3); Hematocrit 33.2 % (39.6-49.0); Lymphocytes % 12.8 % (15.3-44.8); MPV 8.5 fL (7.6-11.3); RBC Red Blood Cell Count 3.33 M/uL (4.33-5.43)
[2020-02-26 06:50] LABS: Albumin 2.9 g/dL (3.4-5.0); Bilirubin Total 0.3 mg/dL (0.2-1.0); Potassium 4.6 mmol/L (3.5-5.1); Protein, Total 7.3 g/dL (6.4-8.2)
[2020-02-26] MEDS ORDERED: INSULIN -REGULAR HUMAN 50 UNIT/0.5 ML ML SQ SCH (07:30)
[2020-02-26] MEDS: FERROUS SULFATE 325 MG TAB PO SCH (08:43)
[2020-02-26] MEDS: CYANOCOBALAMIN 1,000 MCG TAB PO SCH (08:43)
[2020-02-26] MEDS: ASPIRIN EC 81 MG TAB PO SCH (08:43)
[2020-02-26] MEDS: PANTOPRAZOLE 40MG TABLET PO SCH ×2 (08:43→17:10)
[2020-02-26] MEDS: HEPARIN 5000 UNIT/ML 1 ML VIAL SQ SCH ×2 (08:44→21:00)
[2020-02-26] MEDS: INSULIN -REGULAR HUMAN 50 UNIT/0.5 ML ML SQ SCH ×4 (08:44→21:23)
[2020-02-26] MEDS: ASCORBIC ACID 500 MG TABLET PO SCH ×2 (09:19→21:23)
--- NOTE | 2020-02-26 09:24 | RAD REPORT ---
EXAM DESCRIPTION: US - Extremity Venous Uni Ltd - 02/25/2020 9:09 pm CLINICAL HISTORY: SWELLING COMPARISON: Bilateral DVT study February 05 TECHNIQUE: Real-time sonographic evaluation of the right lower extremity deep venous systems was per formed. FINDINGS: Normal compressibility, flow augmentation, phasic flow and spontaneous flow are identified in the right lower extremity common femoral, superficial femoral, popliteal and posterior tibial vei ns. No intraluminal filling defects seen. Preliminary findings were provided at the time of the study. IMPRESSION: No DVT in the right lower extremity.
--- NOTE | 2020-02-26 09:29 | RAD REPORT ---
EXAM DESCRIPTION: US - Lower Extremity Artery Uni Ltd - 02/25/2020 9:09 pm CLINICAL HISTORY: PAIN Right foot second toe pain and swelling, skin discoloration COMPARISON: Lower Extremity Arterial Bilat dated 02/06/2020 TECHNIQUE: Doppler evaluation of the right lower leg arterial tree performed. Waveforms and velocity values were obtained along with visual inspection. FINDINGS: Right common femoral artery shows a triphasic waveform pattern with a peak systolic veloci ty of 125 cm/second.Waveform transitions to a monophasic pattern in the superficial femoral artery. V elocity values decreased to 30-53 cm per second. Atherosclerotic changes are seen in the bean of the se vessels. A specific flow restricting lesion has a source for the abrupt transition is not identifi ed. Popliteal artery shows a monophasic waveform pattern was significantly dampened velocity to 14 cm/sec ond. Again, a specific flow restricting lesion is not seen. Atherosclerotic changes are present in th e bean of the vessel. Posterior tibial artery velocity was monophasic at 15 cm/second. The dorsalis pedis artery waveform could not be obtained. IMPRESSION: Significant right lower extremity peripheral arterial disease is identifiable as detaile d. No blood flow could be documented in the dorsalis pedis artery. Atherosclerotic changes are seen in the bean. One or more specific flow restricting lesions could no t be identified.
--- NOTE | 2020-02-26 10:55 | CON ---
Date of Consultation: 02/25/2020 Reason For Consultation: Right foot pain. History Of Present Illness: Patient is an 84-year-old gentleman with multiple medical problems I hav e known from previous evaluation for colon cancer and colon resection x2, who is being followed by Dr Gabby [facility] with a gangrenous second toe that possibly needs debridement. I w as asked to evaluate. Patient came in because of increasing pain and redness. He was seen by Dr. Marisela wilburn, who has started him on antibiotics, but the redness became worse. He failed outpatient oral a ntibiotic therapy. He was admitted for IV antibiotics and I was consulted. He is awake, alert, feel s better after pain medicine was given. No purulent discharge. No sore throat, runny nose, cough, h eadaches, or dizziness. No chest pain. No fever or chills. Review of Systems: Otherwise unremarkable. Past Medical History: Significant for diabetes, hypertension, UT, skin cancer, aortic valve replacem ent, colon resection for colon cancer. Past Surgical History: Besides the aortic valve and the colon surgeries and cataract, there is carpa l tunnel release. Left hip replacement, right hip surgery, left thumb surgery, right shoulder surger y. Allergies: REVIEWED AND INCLUDE CLINDAMYCIN, DOXYCYCLINE, MORPHINE, AND BACTRIM. Social History: Patient does not smoke or drink. Family History: Significant for hypertension, diabetes, kidney disease, stroke, and cancer in his si ster. Physical Examination: Vital Signs: Stable. He is afebrile. General: He is awake, alert, and oriented x3. Head and Neck: Cranial nerves 2 through 12 are grossly within normal limits. No neck masses. No JV D. Throat clear. Neck: Supple. Chest: Clear. Heart: S1, S2. Abdomen: Soft. Extremities: Diminished dorsalis pedis and posterior tibial pulses. There is erythema and edema in the right forefoot. There is a necrotic area, dark, black in the top the dorsum of the second toe. The remainder of the toe actually looks viable. Neurologic: Nonfocal. Imaging: He had a MRI done a couple weeks ago, which was negative for osteomyelitis. He has had Dop pler and venous study done, which the official report is pending. However, I was told by the ER phys victorino that the preliminary report did not show anything that needed urgent intervention and there was distal disease on the arterial side and there was no DVT. He also had a foot x-ray, which showed no evidence of osteo. Assessment: Right second toe infection with necrotic tissue and cellulitis. Recommendations: Continue IV antibiotics. Patient will need debridement of that toe trying to nicky ge it. We will do that tomorrow morning. Patient understands the risks, benefits, and alternatives and agrees to procedure. /MODL Voice ID: [id number] Report ID: [id number]
--- NOTE | 2020-02-26 13:53 | RAD REPORT ---
EXAM DESCRIPTION: Nicole Single View02/26/2020 1:39 pm CLINICAL HISTORY: Shortness of breath COMPARISON: November 2019 FINDINGS: Postsurgical changes involve the chest The right base is hazy The remainder of lungs appear clear of acute Infiltrate. The heart is mildly enlarged IMPRESSION: Right base is hazy. This probably represents combination of small pleural effusion and a telectasis
[2020-02-26] MEDS: NA CHLORIDE 0.9% 1,000 ML IV SCH (14:35)
--- NOTE | 2020-02-26 15:28 | P.PN ---
Subjective Date of Service: 02/26/20 Patient feels a little down about having to undergo amputation. He said he has been having issues for quite a while and has had Dopplers of his right leg performed. He sees local cardiology. Will Consult them as well and get arterial Doppler. Continue with IV antibiotic therapy. Patient with gangrenous 2nd toe which will require amputation for general surgery. Healing will depend on circulation. Review of Systems 10-point ROS is otherwise unremarkable Physical Examination - Vital Signs Temperature: 97.5 F Blood Pressure: 112/53 Pulse: 66 Respirations: 17 Pulse Ox (%): 94 - Physical Exam General: Alert, In no apparent distress, Oriented x3 HEENT: EOMI Respiratory: Clear to auscultation bilaterally, Normal air movement Cardiovascular: Regular rate/rhythm, Normal S1 S2, Systolic murmur Gastrointestinal: Normal bowel sounds, Soft and benign, Non-distended, No tenderness Musculoskeletal: No clubbing, Swelling, Erythema, Tenderness, Warmth Integumentary: Tenderness/swelling, Erythema, Warmth Neurological: Abnormal strength (Right-sided weakness) - Studies Laboratory Data (last 24 hrs) 02/25/20 20:20: PT 12.5, INR 1.06, APTT 29.7 02/25/20 20:20: Sodium 135 L, Potassium 4.9, BUN 112 H, Creatinine 2.37 H, Glucose 350 H, Total Bilirubin 0.3, AST 13 L, ALT 19, Alkaline Phosphatase 106 02/25/20 20:20: WBC 8.6, Hgb 11.3 L, Hct 33.0 L, Plt Count 248 Medications List Reviewed: Yes Assessment & Plan - Problems (Diagnosis) (1) Peripheral arterial disease Current Visit: Yes Status: Acute (2) H/O aortic valve repair Current Visit: Yes Status: Acute (3) Ulcer of right second toe with necrosis of muscle Current Visit: Yes Status: Acute (4) Cellulitis of right lower extremity Current Visit: Yes Status: Acute (5) Non-insulin dependent type 2 diabetes mellitus Onset Date: 05/29/17 Current Visit: No Status: Chronic - Plan 1. Continue with IV antibiotic 2. Continue with local wound care 3. Wound care consultation/surgical consultation 4. Gentle IV hydration 5. Monitor CBC 6. Strict blood sugar monitoring 7. Pain control 8. Cardiology consultation to evaluate PAD-arteriogram may be needed 9. Strict blood sugar control 10. GI and DVT prophylaxis Discharge Plan: Home Plan to discharge in: Greater than 2 days - Advance Directives Does patient have a Living Will: No Does patient have a Durable POA for Healthcare: Yes - Code Status/Comfort Care Code Status Assessed: Yes Code Status: Full Code Physician Review: Patient Assessed, Agree with Above Assessment and Plan Critical Care: No Time Spent Managing PTS Care (In Minutes): 35
--- NOTE | 2020-02-26 17:13 | CON ---
Date of Consultation: 02/26/2020 Additional Consulting Physician: Dr. Daley. Reason For Consultation: Elevated BUN, creatinine, fluid management. History Of Present Illness: This is an 84-year-old gentleman with significant past medical history of hypertension, hyperlipidemia, coronary artery disease status post CABG, status post aortic valve replacement, diabetes complicated since 1972 complicated with neuropathy, no retinopathy, chronic kidney disease, baseline creatinine 1.6 GFR of 40 as by January 2020. The patient was in his regular state of health. The patient had infection in the toes. Follow up with the [facility]. The patient was started on antibiotic a couple of weeks ago . Wound did not heal and infection get worse. For that reason, he reported to the hospital. Upon arrival to the hospital, the patient still found to have elevated BUN and creatinine. For that reason, we have been consulted. The patient denied taking any nonsteroidal. No recent IV contrast. Allergies: ALLERGY TO CLINDAMYCIN, DOXYCYCLINE, SULFA, TRIMETHOPRIM, AND MORPHINE. Home Medications: Include: 1. Promethazine. 2. Aspirin. 3. Codeine. 4. Insulin. 5. B12. 6. Finasteride. 7. Iron. 8. Docusate. Past Medical History: Includes: 1. Diabetes complicated with neuropathy. No retinopathy. 2. Hypertension. 3. Chronic kidney disease. Baseline creatinine 1.6, GFR of 40 as of January 2020. 4. Aortic valve replacement back in 2011. 5. Coronary artery disease status post CABG. Past Surgical History: Include shoulder surgery, left thumb surgery, hip surgery, aortic valve replacement, and CABG. Family History: Positive for diabetes and cancer with hypertension. Social History: Denies smoking. Denies drinking. Denies drugs abuse. Review of Systems: Head and Neck: No red eye. No ear pain. GI: No nausea, no vomiting. : No polyuria, no dysuria, no hematuria. Medication Assistant: Not applicable. Respiratory: No shortness of breath. Cardiovascular: No chest pain. Endocrine: No polydipsia. Skin: No rash. Neuro: Has neuropathy. Musculoskeletal: Has foot pain. Physical Examination: Vital Signs: When I saw the patient, blood pressure 112/53, pulse of 66, afebrile. No documentation of low blood pressure. The patient still has good urine output of 300. Chest: Clear to auscultation. Heart: S1, S2. Systolic murmur. Abdomen: Soft. Dullness on the suprapubic area. Extremities: Trace edema. Had redness with erythema on the right foot with black eschar on the mid toe. Neurologic: Alert and oriented x3. No focal. Laboratory Data: WBC 6.1, H and H 11.1/33.2, platelets of 223. Sodium 137, potassium 4.6, bicarb 26, BUN 107, creatinine 2.1, calcium 8.8 upon admission to the hospital, BUN 112, creatinine 2.3. Lactic acid 1.3, glucose elevated. Urinalysis; specific gravity 1.025. Urine sodium 46, urine creatinine 47. Current Medications: Include: 1. Aspirin. 2. Zosyn. 3. Ferrous sulfate. 4. Heparin. 5. Hydralazine. 6. Zofran. 7. Insulin. 8. IV fluid at 50 per hour. 9. Vitamin C. Assessment And Plan: 1. Acute kidney injury. Our differential is prerenal with possibility of obstructive uropathy given the positive finding on the dullness on the suprapubic area. I am going to go ahead and continue IV hydration. We will send for urine eosinophil to rule out any acute interstitial nephritis and we will get renal ultrasound. 2. I am going to increase IV fluid to 75. 3. We will send for serum protein electrophoresis given the presence of the anemia to rule out any light chain disease. 4. Given the exposure to antibiotic to rule out acute interstitial nephritis, we will send for urine eosinophil. 5. Hypertension, controlled, optimal. No need for blood pressure medication for the time being. 6. Severe disproportion, BUN and creatinine, mostly secondary to prerenal and catabolic state. We will continue hydration. I am going to go ahead and send for uric acid. 7. Anemia with the presence of acute kidney injury. Light chain disease needs to be ruled out. We will send for anemia workup and we will send for serum protein electrophoresis. 8. Foot infection. Continue current antibiotic dose appropriate. We will follow up with Surgery. Plan for debridement tomorrow. 9. Diabetes as by primary. Time spent coordinating the care, discuss him with all of our team members including othere quality consultant and hospitalist and [id number] with the patient and please go out of 45 min CORINNE Voice ID: [id number] Report ID: [id number] MTDD
--- NOTE | 2020-02-26 21:00 | RAD REPORT ---
EXAM DESCRIPTION: US - Renal Ultrasound-Complete - 02/26/2020 8:33 pm CLINICAL HISTORY: . Acute renal failure COMPARISON: None. FINDINGS: The right kidney measures 10 cm with a normal echotexture. The left kidney measures 10 cm with a normal echotexture. Hydronephrosis is not seen. No gross abnormality of bladder IMPRESSION: Unremarkable renal ultrasound.
[2020-02-26] MEDS: LORAZEPAM 0.5 MG TABLET PO PRN (21:25)
[2020-02-27] MEDS: NA CHLORIDE 0.9% 1,000 ML IV SCH ×2 (01:48→20:51)
[2020-02-27] MEDS: HYDROCODONE/APAP 5/325 MG TAB PO PRN ×2 (02:24→12:59)
[2020-02-27] MEDS: PIPER/TAZO/NS 2.25gm 2.25 GM/50 ML BAG IVPB SCH ×3 (05:00→21:56)
[2020-02-27 06:19] LABS: Absolute Lymphocytes (CBC) 0.7 K/uL (0.7-4.9); Basophils % 0.7 % (0-1.3); Hematocrit 36.3 % (39.6-49.0); Lymphocytes % 18.8 % (15.3-44.8); MPV 8.4 fL (7.6-11.3); RBC Red Blood Cell Count 3.65 M/uL (4.33-5.43)
[2020-02-27 07:02] LABS: Urine Protein/Creatinine Ratio 0.3 ratio (<0.15)
[2020-02-27] MEDS: INSULIN -REGULAR HUMAN 50 UNIT/0.5 ML ML SQ SCH ×4 (07:30→21:07)
[2020-02-27] MEDS: PANTOPRAZOLE 40MG TABLET PO SCH ×2 (07:30→17:03)
[2020-02-27 07:55] LABS: ALT/SGPT 15 U/L (12-78); AST/SGOT 13 U/L (15-37); Albumin 2.5 g/dL (3.4-5.0); Alkaline Phosphatase 85 U/L (45-117); BUN Blood Urea Nitrogen 86 mg/dL (7-18); Bicarbonate 25 mmol/L (21-32); Bilirubin Total 0.3 mg/dL (0.2-1.0); Creatine Phosphokinase 46 U/L (39-308); Ferritin 120.7 ng/mL (26-388); Folic Acid, (Folate) > 20.0 ng/mL (3.1-17.5); Glucose Level 58 mg/dL (74-106); Phosphorus 3.6 mg/dL (2.5-4.9); Potassium 4.5 mmol/L (3.5-5.1); Protein, Total 6.6 g/dL (6.4-8.2); Sodium Level 144 mmol/L (136-145); Transferrin 163 mg/dL (200-360); Uric Acid 7.1 mg/dL (3.5-7.2)
[2020-02-27] MEDS ORDERED: COLLAGENASE 30 GM OINTMENT TOP ONE (08:50)
[2020-02-27] MEDS ORDERED: NA CHLORIDE 0.9% 1,000 ML ONE (09:00)
[2020-02-27] MEDS: INSULIN GLARGINE 100 UNITS/ML SQ SCH ×2 (09:00→20:56)
[2020-02-27] MEDS: ASCORBIC ACID 500 MG TABLET PO SCH ×2 (09:00→21:57)
[2020-02-27] MEDS: FERROUS SULFATE 325 MG TAB PO SCH (09:00)
[2020-02-27] MEDS: HEPARIN 5000 UNIT/ML 1 ML VIAL SQ SCH (09:00)
[2020-02-27] MEDS: CYANOCOBALAMIN 1,000 MCG TAB PO SCH ×2 (09:00→20:54)
[2020-02-27] MEDS: ASPIRIN EC 81 MG TAB PO SCH (09:00)
[2020-02-27] MEDS ORDERED: SUCCINYLCHOLINE 20 MG/ML (10 ML) IV ONE (09:13)
[2020-02-27] MEDS ORDERED: propofoL 200 MG/20 ML VIAL IV ONE (09:15)
[2020-02-27] MEDS ORDERED: D50W 25 GM/50 ML SYRINGE/VIAL IV ONE (09:22)
--- NOTE | 2020-02-27 09:58 | P.OP ---
Pbx Wire Chief: NONE,NONE Preoperative diagnosis: Infected right 2nd toe with gangrene Postoperative diagnosis: same Primary procedure: Right 2nd toe partial amputation Anesthesia: gen Estimated blood loss: min Specimen: bone for C&S Findings: as above Complications: None Transferred to: Recovery Room Condition: Good
--- NOTE | 2020-02-27 11:17 | OP ---
Date of Procedure: 02/27/2020 Surgeon: Rob Crenshaw MD Delivery Sales Worker: None. Preoperative Diagnosis: Infected wound, right second toe with gangrene. Postoperative Diagnosis: Infected wound, right second toe with gangrene. Procedure: Right second toe partial amputation. Estimated Blood Loss: Minimal. Specimen: Bone for culture and sensitivity. Anesthesia: General. Complications: None. Disposition: The patient tolerated the procedure in stable condition, taken to Recovery in good gene ral condition. Procedure In Detail: The patient was brought to the OR and placed in supine position. General anest hesia begun. The patient was prepped and draped in the usual sterile fashion. Marcaine 0.5% infiltr ated at the base of the right second toe. Then, a 15 blade was used to make a fishmouth incision on the proximal phalanx where healthy skin was incised to the base where the gangrene started and then b one was dissected. Proximal bone was dissected down and excised with the bone cutter. Rongeurs were used to smooth out the rough edges. The entire toe was removed. Cultures were done on the infected bone. Wound irrigated, bleeding controlled with cautery. A 2-0 chromic was used to reapproximate t he subcutaneous tissue and 3-0 nylon was used to close the skin loosely. Sterile dressing was applied. The patient was awakened and taken to Recover y in good general condition. /MODL Voice ID: [id number] Report ID: [id number]
--- NOTE | 2020-02-27 13:20 | PN ---
Date of Progress Note: 02/27/2020 Subjective: The patient was admitted with infected toe, status post debridement today. The patient had acute kidney injury secondary to prerenal to rule out AIN. The patient's after hydration kidney function has been improved. The patient again status post debridement today. Physical Examination: Vital Signs: When I saw the patient, blood pressure 114/50, pulse of 85, afebrile. Chest: Clear to auscultation. Heart: S1, S2. Systolic murmur. Abdomen: Soft, nontender. Extremities: Dressing on the right foot. Neurologic: No focality. Laboratory Data: WBC 3.8, H and H 12.1/36.3, platelet 187. Sodium 144, potassium 4.5, bicarb 25, BUN 86, creatinine 1.8 trending down. Iron 64, TIBC 28. Phosphorus 3.6. Uric acid 8.4. P/C ratio 0.3. Renal ultrasound 02/25, no hydronephrosis. Current Medications: For the patient including antibiotics, Tylenol, PPI, pantoprazole. Assessment And Plan: 1. Acute kidney injury secondary to prerenal, recovered. Creatinine is trending down, getting closer to baseline. I am going to continue IV hydration. 2. Hypertension, currently blood pressure on the lower side. We will hold all blood pressure medications. 3. Infected toe. Continue current antibiotic. Status post I and D. We will follow up with primary and Surgery. Time spent coordinating the care, discuss him with all of our team members including othere railroad design consultant and hospitalist and [id number] with the patient and please go out of 35 min CORINNE Voice ID: [id number] Report ID: [id number] LATHA
--- NOTE | 2020-02-27 13:41 | P.PN ---
Subjective Date of Service: 02/27/20 Patient status post amputation of the distal interphalangeal joint of the 2nd toe on the right foot. Patient had an issue with a flutter while he was in the operating room. Rate is controlled. Continue with anti coagulation as well. Will start later today as long as no bleeding from surgical site. Review of Systems 10-point ROS is otherwise unremarkable Physical Examination - Vital Signs Temperature: 96.5 F Blood Pressure: 114/50 Pulse: 85 Respirations: 16 Pulse Ox (%): 99 - Physical Exam General: Alert, In no apparent distress, Oriented x3 Respiratory: Clear to auscultation bilaterally, Normal air movement Cardiovascular: Regular rate/rhythm, Normal S1 S2, No murmurs Gastrointestinal: Normal bowel sounds, Soft and benign, Non-distended, No tenderness Musculoskeletal: No clubbing, Swelling, Erythema, Tenderness, Warmth Integumentary: Tenderness/swelling, Erythema, Warmth Neurological: Sensation intact, Cranial nerves 3-12 intact - Studies Medications List Reviewed: Yes Assessment & Plan - Problems (Diagnosis) (1) Peripheral arterial disease Current Visit: Yes Status: Acute (2) H/O aortic valve repair Current Visit: Yes Status: Acute (3) Ulcer of right second toe with necrosis of muscle Current Visit: Yes Status: Acute (4) Cellulitis of right lower extremity Current Visit: Yes Status: Acute (5) Non-insulin dependent type 2 diabetes mellitus Onset Date: 05/29/17 Current Visit: No Status: Chronic (6) Atrial flutter Current Visit: Yes Status: Acute - Plan 1. Continue with IV antibiotic with; status post amputation and will continue wound care 2. Patient is a flutter will be controlled and will start anti coagulation this evening 3. Gentle IV hydration; patient is uremic. Continue monitoring BUN and creatinine 4. Monitor CBC 5. Strict blood sugar monitoring 6. Pain control; also need antidepressant in addition to the amitriptyline or can switch it over to an SSRIs or SNRIs 8. Cardiology consultation to evaluate PAD-arteriogram may be needed; this will be done as an outpatient 9. GI and DVT prophylaxis Will get case management consultation for getting physical therapy with [facility] - Advance Directives Does patient have a Living Will: No Does patient have a Durable POA for Healthcare: Yes - Code Status/Comfort Care Code Status: Full Code Physician Review: Patient Assessed, Agree with Above Assessment and Plan Critical Care: No Time Spent Managing PTS Care (In Minutes): 35
[2020-02-27] MEDS ORDERED: MORPHINE 4 MG/ML SYR IV ONE ×2 (15:08→16:00)
[2020-02-27] MEDS ORDERED: HYDROMORPHONE HCL 1 MG/ML INJ IV PRN (15:49)
[2020-02-27] MEDS ORDERED: MORPHINE 2 MG/ML SYR ONE (15:56)
[2020-02-27] MEDS: HYDROMORPHONE HCL 1 MG/ML INJ IV PRN (17:00)
[2020-02-27] MEDS: METOPROLOL TAR 25 MG TAB PO SCH (17:01)
[2020-02-27] MEDS ORDERED: HYDROMORPHONE HCL 1 MG/ML INJ ONE (17:12)
[2020-02-27] MEDS ORDERED: METOPROLOL TAR 25 MG TAB ONE (17:12)
[2020-02-27] MEDS: ESCITALOPRAM 20 MG TAB PO SCH (20:54)
[2020-02-27] MEDS: ENOXAPARIN 100 MG/ML SYR SQ SCH (20:54)
[2020-02-27] MEDS: FUROSEMIDE 20 MG TABLET PO SCH (20:55)
[2020-02-27] MEDS ORDERED: AMITRIPTYLINE 50 MG TAB PO SCH (21:00)
[2020-02-27] MEDS: LORAZEPAM 0.5 MG TABLET PO PRN (21:05)
[2020-02-27] MEDS: HYDROCODONE/APAP 10/325 TAB PO PRN (22:20)
[2020-02-28 04:27] LABS: Absolute Lymphocytes (CBC) 0.6 K/uL (0.7-4.9); Basophils % 0.6 % (0-1.3); Lymphocytes % 10.9 % (15.3-44.8); MPV 8.2 fL (7.6-11.3); RBC Red Blood Cell Count 3.08 M/uL (4.33-5.43)
[2020-02-28 04:37] LABS: Albumin 2.5 g/dL (3.4-5.0); Bilirubin Total 0.2 mg/dL (0.2-1.0); Phosphorus 3.3 mg/dL (2.5-4.9); Potassium 4.9 mmol/L (3.5-5.1); Protein, Total 6.7 g/dL (6.4-8.2)
[2020-02-28] MEDS: PIPER/TAZO/NS 2.25gm 2.25 GM/50 ML BAG IVPB SCH ×3 (05:47→23:00)
[2020-02-28] MEDS: METOPROLOL TAR 25 MG TAB PO SCH ×2 (05:47→17:53)
[2020-02-28] MEDS: NA CHLORIDE 0.9% 1,000 ML IV SCH ×2 (05:48→20:59)
[2020-02-28] MEDS: INSULIN -REGULAR HUMAN 50 UNIT/0.5 ML ML SQ SCH ×4 (07:30→21:02)
[2020-02-28] MEDS: ASPIRIN 81 MG CHEWABLE TABLET PO SCH (08:35)
[2020-02-28] MEDS: INSULIN GLARGINE 100 UNITS/ML SQ SCH ×2 (08:35→20:58)
[2020-02-28] MEDS: ESCITALOPRAM 20 MG TAB PO SCH ×2 (08:36→20:59)
[2020-02-28] MEDS: FUROSEMIDE 20 MG TABLET PO SCH ×2 (08:36→20:58)
[2020-02-28] MEDS: CYANOCOBALAMIN 1,000 MCG TAB PO SCH (08:36)
[2020-02-28] MEDS: PANTOPRAZOLE 40MG TABLET PO SCH ×2 (08:36→16:51)
[2020-02-28] MEDS: ASCORBIC ACID 500 MG TABLET PO SCH ×2 (08:37→20:59)
[2020-02-28] MEDS: FERROUS SULFATE 325 MG TAB PO SCH (08:37)
[2020-02-28] MEDS: ENOXAPARIN 100 MG/ML SYR SQ SCH (08:37)
[2020-02-28] MEDS: HYDROCODONE/APAP 10/325 TAB PO PRN ×2 (08:50→14:47)
[2020-02-28] MEDS: ALBUTEROL 2.5 MG/3 ML NEB SOL NEB PRN ×2 (08:56→14:46)
[2020-02-28] MEDS ORDERED: ENOXAPARIN 100 MG/ML SYR SQ SCH (09:00)
[2020-02-28] MEDS ORDERED: lisinopriL 10 MG TAB PO SCH (09:00)
[2020-02-28] MEDS ORDERED: INSULIN DEGLUDEC 24 UNIT SQ SCH (09:00)
--- NOTE | 2020-02-28 10:24 | CON ---
Date of Consultation: 02/27/2020 Reason For Consultation: Peripheral arterial disease. History Of Present Illness: Mr. Zayas is an 84-year-old white male. He is known to me from previou s office visits and admissions for many years. He has a history of hypertension, diabetes, coronary artery disease. He is status post CABG. He has aortic valve disease. He is status post aortic valv e replacement and bioprosthetic. He has a history of dyslipidemia, chronic renal disease, peripheral vascular disease and BPH. Came in with a gangrenous right toe. He is status post partial resection of that toe today. Arterial Doppler showed 100% occlusion of the dorsalis pedis on the right side. Venous Doppler was negative. X-ray was negative. Chest x-ray was negative. Renal ultrasound was n egative. He had a creatinine of 2.15. I was consulted mostly regarding his PAD. The patient has no cardiac symptoms at this point. Allergies: INCLUDE MORPHINE AND SULFA. Review of Systems: Negative. Social History: Negative. Family History: Negative. Medications: At home include aspirin, insulin, and finasteride. Physical Examination: Vital Signs: Stable. He was afebrile. He was in sinus rhythm, although had episodes of atrial fibr illation and flutter during surgery. HEENT: Negative. Neck: Supple. No bruit. Chest: Clear. Cardiac: Exam revealed a regular rhythm and rate. No murmurs, gallops, or rubs. Abdomen: Obese. Extremities: Revealed no clubbing, cyanosis, or edema. He is just status post partial right toe res ection. Diagnostic Data: As stated earlier. Impression And Plan: 1.Severe distal peripheral artery disease in the right foot with 100% dorsalis pedis. The rest of i t appeared to be fairly intact with diffuse atherosclerosis. The patient has a creatinine of 2.15. There is absolutely no reason to do an abdominal angiogram with runoff at this point. If his creatin ine improved down the road, we will readdress that issue. I agree with this present regimen otherwis e. 2.New onset paroxysmal atrial fibrillation and flutter. I think the patient is rate controlled and is asymptomatic from that standpoint. We should definitely consider putting him on long-term anticoa gulants p.o. when he goes home, such as Eliquis or Xarelto and take him off aspirin. 3.Status post aortic valve replacement, stable. 4.Diabetes, stable. 5.Hypertension, well controlled. 6.Coronary artery disease, status post coronary artery bypass grafting, well controlled. 7.Dyslipidemia, well controlled. 8.Benign prostatic hypertrophy. 9.Renal failure acute on chronic. I will continue to follow Mr. Zayas. DENYS/STEPHAN Voice ID: [id number] Report ID: [id number]
--- NOTE | 2020-02-28 11:30 | PN ---
Date of Progress Note: 02/28/2020 Subjective: The patient is awake, alert. Has a cough this morning and frequency a little low and be tter. Objective: Vital Signs: Stable. Afebrile. Extremities: The wound reveals to be clean, dry, and intact. There is minimal erythema and edema is improving. Laboratory Data: Reviewed. Cultures are growing Staph aureus. Sensitivity is pending. Assessment: Status post right second toe partial amputation. Recommendations: Continue IV antibiotics. Wound care is ordered. Physical therapy. Weightbearing as tolerated. Medical management. Once medically cleared, he can be discharged on oral antibiotics and follow up with me in the wound center in 2 weeks. /MODL Voice ID: [id number] Report ID: [id number]
--- NOTE | 2020-02-28 13:30 | PN ---
The patient returned to clinic for evaluation of right dorsal second toe grade 2 diabetic ulcer, righ t medial lower leg full-thickness venous ulcer measuring 4.5 x 3.4 x 0.2, which is bridged to 40%, bu ttock lesion stage II pressure ulcer measuring 0.6 x 0.8 x 0.1. Left buttock stage II pressure ulcer measuring 0.2 x 0.7 x 0.1, bridged to 20%. The grade 2 diabetic ulcer measures 0.2 x 0.2 . The right second dorsal toe, right medial lower leg wounds have improved, decreased wound area. The buttock wound was basically the same; however, he has not done much in the way of shifting his weigh t and this is contributing to his pressure ulcers. The left dorsal third toe wound is new. He under went debridement of the right second toe wound; however, this was minimal as the patient could not to lerate it due to the pain. The distal aspect of the bone was in contact with the surface. DuoDERM w as used for the right and left buttocks and preparation for possible amputation of the distal ___ BMP, CBC, and pre-albumin was done. The right foot without contrast MRI to maintain the lack of osteo and also arterial venous Dopplers were done. He was continued on the cefdinir and to return to clinic in 1 week. HR/MODL Voice ID: [id number] Report ID: [id number]
[2020-02-28] MEDS: ALBUTEROL 2.5 MG/3 ML NEB SOL NEB SCH (19:45)
[2020-02-28] MEDS: ACETAMINOPHEN 500 MG TAB PO PRN (20:58)
[2020-02-28] MEDS: GUAIFENESIN/DM 5 ML UCUP PO SCH (21:00)
[2020-02-28] MEDS: JUVEN PACKET PO SCH (21:02)
[2020-02-28] MEDS: MUPIROCIN 2% OINT 22GM TUBE TOP SCH (21:03)
--- NOTE | 2020-02-28 22:32 | PN ---
Date of Progress Note: 02/28/2020 The patient apparently had some confusion earlier today, probably secondary to the hydrocodone. At t he time I saw him, his mental status has cleared considerably, according to the family. The dressing was changed and looks clean. Still has some residual cellulitis. We will continue the IV antibioti c. Discussion of disposition has been made with the family and the SNF unit was considered the most rational. His arrhythmia is stable. Continue on the beta-ovidio which he was put on approximately 1 week prior to the procedure. He has slight cough and inhalation therapy was changed to scheduled. Blood work will be repeated in the morning. Depending on his status and the acceptance, he may be a ble to be discharged. HR/MODL Voice ID: [id number] Report ID: [id number]
--- NOTE | 2020-02-28 22:50 | PN ---
Date of Progress Note: 02/28/2020 Chief Complaint: Chronic kidney disease, accelerated by acute kidney injury. Subjective: The patient is admitted to the hospital with infected toe, received treatment with antib iotics and had debridement done. He developed acute kidney injury secondary to prerenal azotemia, po ssible allergic interstitial nephritis. The patient received IV fluids for hydration and renal funct ion has improved. The patient today denies PND or orthopnea. Physical Examination: Lungs: Diminished breath sounds at bases. Heart: S1, S2. Abdomen: Soft, benign. Extremities: Dressing on the right foot. Laboratory Data: Sodium 132, potassium 4.9, chloride 113, CO2 25, BUN 70, creatinine 1.89, glucose 1 40, calcium 8.2, phosphorus 3.3, albumin 2.5. Impression And Plan: 1.Acute on chronic kidney injury, very high BUN-creatinine ratio. BUN is somewhat improving since y day from 86, creatinine is at 1.8 range. Acute kidney injury is secondary to prerenal azotemia. Avoid excessive diuretic treatment. The patient will continue IV fluids for mild hydration. 2.Hypertension. Blood pressure controlled. Continue treatment as started. 3.Infected toe. Continue antibiotics. EB/MODL Voice ID: [id number] Report ID: [id number]
[2020-02-29] MEDS: ALBUTEROL 2.5 MG/3 ML NEB SOL NEB SCH ×4 (01:20→20:35)
[2020-02-29] MEDS: GUAIFENESIN/DM 5 ML UCUP PO SCH ×4 (02:01→18:14)
[2020-02-29] MEDS: ACETAMINOPHEN 500 MG TAB PO PRN ×2 (02:01→09:15)
[2020-02-29 04:40] LABS: Albumin 2.6 g/dL (3.4-5.0); Bilirubin Total 0.5 mg/dL (0.2-1.0); Phosphorus 3.4 mg/dL (2.5-4.9); Potassium 4.5 mmol/L (3.5-5.1); Protein, Total 6.8 g/dL (6.4-8.2)
[2020-02-29] MEDS: PIPER/TAZO/NS 2.25gm 2.25 GM/50 ML BAG IVPB SCH ×2 (05:50→15:01)
[2020-02-29] MEDS: METOPROLOL TAR 25 MG TAB PO SCH ×2 (05:51→17:16)
[2020-02-29] MEDS: PANTOPRAZOLE 40MG TABLET PO SCH ×2 (05:51→17:15)
[2020-02-29] MEDS: INSULIN -REGULAR HUMAN 50 UNIT/0.5 ML ML SQ SCH ×4 (07:30→21:13)
[2020-02-29] MEDS: NA CHLORIDE 0.9% 1,000 ML IV SCH (08:40)
[2020-02-29] MEDS: MUPIROCIN 2% OINT 22GM TUBE TOP SCH ×2 (08:50→21:00)
[2020-02-29] MEDS: JUVEN PACKET PO SCH ×2 (09:00→21:13)
[2020-02-29] MEDS: ENOXAPARIN 100 MG/ML SYR SQ SCH (09:12)
[2020-02-29] MEDS: INSULIN GLARGINE 100 UNITS/ML SQ SCH ×2 (09:12→21:12)
[2020-02-29] MEDS: ASCORBIC ACID 500 MG TABLET PO SCH ×2 (09:14→21:12)
[2020-02-29] MEDS: ASPIRIN 81 MG CHEWABLE TABLET PO SCH (09:16)
[2020-02-29] MEDS: FERROUS SULFATE 325 MG TAB PO SCH (09:16)
[2020-02-29] MEDS: FUROSEMIDE 20 MG TABLET PO SCH (09:17)
[2020-02-29] MEDS: ESCITALOPRAM 20 MG TAB PO SCH ×2 (09:18→21:12)
[2020-02-29] MEDS: VANCOMYCIN 1.75 GM in NA CHLORIDE 0.9% 500 ML IVPB SCH (12:42)
[2020-02-29] MEDS ORDERED: CHLORHEXIDINE GLUCO 4% 120 ML TOP SCH (14:00)
[2020-02-29] MEDS ORDERED: BISACODYL 10 MG RECTAL SUPP PR ONE (15:00)
--- NOTE | 2020-02-29 15:38 | RAD REPORT ---
EXAM DESCRIPTION: RAD - Chest Single View - 02/29/2020 3:21 pm CLINICAL HISTORY: COPD COMPARISON: February 25 TECHNIQUE: AP portable chest image was obtained 02/29/2020 3:21 pm . FINDINGS: No acute failure, infiltrate or mass. Chronic pleural and parenchymal changes at the later al right base are stable. Cardiac silhouette is enlarged but no acute vascular engorgement. Sternotom y wires and rib fracture repair hardware changes again noted. No pneumothorax. No acute pleural effus ions suspected. No acute bony abnormality seen. No acute aortic findings suspected. IMPRESSION: No acute cardiopulmonary process. Above detailed findings are stable from February 25.
--- NOTE | 2020-02-29 17:52 | PN ---
Date of Progress Note: 02/29/2020 Subjective: Patient is awake, alert, complaining of little shortness of breath after physical therap y work. Objective: Vital Signs: Stable, afebrile. Examination of the dressing appears clean, dry and intact. There is no increasing erythema, edema, w armth. Laboratory Data: Cultures reviewed is MRSA. Sensitivities were reviewed. Allergies: PATIENT'S ALLERGIES REVIEWED. Assessment: Status post right second toe partial amputation with Methicillin-resistant Staphylococcu s aureus. Recommendation: I discussed the case with Dr. Zarate. We will put the patient on vancomycin becaus e he is allergic to most oral antibiotics and we will get discharge planning for hopefully in 10 to 1 4 days of IV antibiotics, either SNF or LTAC. We will follow the patient while in the hospital. Wou nd care is ordered. /MODL Voice ID: [id number] Report ID: [id number]
--- NOTE | 2020-02-29 19:25 | PN ---
Date of Progress Note: 02/29/2020 Subjective: The patient was admitted with infected toe. The patient is status post I and D, tolerated the procedure. The patient had acute kidney injury secondary to prerenal after hydration, kidney function started improving. The patient's creatinine down to 1.8 and a little bit bounce back to 2 today. The patient's baseline creatinine around 1.6 back in January with GFR of 40. Physical Examination: Vital Signs: When I saw the patient, blood pressure of 135/85, pulse of 66. The patient had low blood pressure yesterday down to 96. Chest: Clear to auscultation. Heart: S1, S2. Systolic murmur. Abdomen: Soft, nontender. Extremities: Dressing on the right foot. Laboratory Data: Sodium 141, potassium 4.5, bicarb 23, BUN 68, creatinine 2, calcium 8.5, albumin 2.6, corrected calcium is 9.5. WBC 5.8, H and H 10.4/31, platelets 212. Current Medications: The patient on include: 1. Zosyn. 2. Vancomycin. 3. Lovenox. 4. Ferrous sulfate. 5. Citalopram. 6. Lasix 20 b.i.d. 7. Zofran. 8. Pantoprazole. Assessment And Plan: 1. Acute kidney injury secondary to prerenal bounce back because of the incident of low blood pressure yesterday, looked to me normal volume to the dry side. I am going to go ahead and discontinue the Lasix and we will monitor the patient closely. I am going to send for uric acid. The patient had also a drop in his hemoglobin. We will monitor any blood loss. 2. Hypertension, currently blood pressure on the lower side with incident of blood pressure down to the 90s. As above, discontinue Lasix. We will monitor the patient. I am going to go ahead and send for chest x-ray for better evaluation of the fluid status. 3. Foot infection, methicillin-resistant Staphylococcus aureus. Continue current antibiotic. We will follow up with primary and Wound Care. Time spent Corordent the care discussing the case with the patient Family member (face to face) and staff member / other merchandising consultant and placing order 35 min CECELIA/STEPHAN Voice ID: [id number] Report ID: [id number] MTDD
--- NOTE | 2020-02-29 20:13 | PN ---
Date of Progress Note: 02/29/2020 Subjective: The patient culture came back with MRSA and has been started on appropriate doses of van comycin and 2-3 doses of this combined with Zosyn has then good job on keeping the infection under co ntrol and the remainder of his lab work has been stable. He did have an episode of hypotension, poss ibly secondary to the addition of the diuretic and the beta ovidio. The former was discontinued by Nephrology. We will continue on beta ovidio. Discussion has had with disposition and the possibili ty of him going to a SNF on is most likely. LTAC will not receive very well by the family a nd probably is not necessary at this stage. I feel the hypotension may have been more likely due to episode of vasovagal syncope, so he was given 1 dose of vancomycin this afternoon, give another dose at Friday night and then probably discharge on if necessary. Continue his doses, we coul d put in a PICC line and get the IV antibiotics at the SNF; however, not likely necessary and switch to p.o. medication at that time depending on the clinical evaluation of the wound. HR/MODL Voice ID: [id number] Report ID: [id number]
[2020-02-29] MEDS ORDERED: MUPIROCIN 2% OINT 22GM TUBE TOP SCH (21:00)
[2020-03-01] MEDS: ACETAMINOPHEN 500 MG TAB PO PRN (00:08)
[2020-03-01] MEDS: GUAIFENESIN/DM 5 ML UCUP PO SCH ×5 (00:09→23:43)
[2020-03-01] MEDS: ALBUTEROL 2.5 MG/3 ML NEB SOL NEB SCH ×4 (01:15→20:20)
[2020-03-01] MEDS: HYDROMORPHONE HCL 1 MG/ML INJ IV PRN (04:43)
[2020-03-01 05:50] LABS: Absolute Lymphocytes (CBC) 0.6 K/uL (0.7-4.9); Basophils % 0.3 % (0-1.3); Hematocrit 26.5 % (39.6-49.0); Lymphocytes % 8.5 % (15.3-44.8); MPV 8.2 fL (7.6-11.3); RBC Red Blood Cell Count 2.64 M/uL (4.33-5.43)
[2020-03-01 06:00] LABS: Albumin 2.6 g/dL (3.4-5.0); Phosphorus 3.3 mg/dL (2.5-4.9); Uric Acid 7.5 mg/dL (3.5-7.2)
[2020-03-01] MEDS: METOPROLOL TAR 25 MG TAB PO SCH ×2 (06:01→17:59)
[2020-03-01] MEDS: INSULIN -REGULAR HUMAN 50 UNIT/0.5 ML ML SQ SCH ×4 (07:30→22:41)
[2020-03-01] MEDS: JUVEN PACKET PO SCH ×2 (09:00→22:39)
[2020-03-01] MEDS: MUPIROCIN 2% OINT 22GM TUBE TOP SCH ×2 (09:00→21:00)
[2020-03-01] MEDS: ASCORBIC ACID 500 MG TABLET PO SCH ×2 (09:31→22:37)
[2020-03-01] MEDS: FERROUS SULFATE 325 MG TAB PO SCH (09:32)
[2020-03-01] MEDS: ESCITALOPRAM 20 MG TAB PO SCH ×2 (09:33→22:37)
[2020-03-01] MEDS: CYANOCOBALAMIN 1,000 MCG TAB PO SCH (09:33)
[2020-03-01] MEDS: PANTOPRAZOLE 40MG TABLET PO SCH ×2 (09:33→16:39)
[2020-03-01] MEDS: ASPIRIN 81 MG CHEWABLE TABLET PO SCH (09:33)
[2020-03-01] MEDS: INSULIN GLARGINE 100 UNITS/ML SQ SCH ×2 (09:34→22:38)
[2020-03-01] MEDS: ENOXAPARIN 100 MG/ML SYR SQ SCH (09:34)
--- NOTE | 2020-03-01 11:49 | PN ---
Date of Progress Note: 03/01/2020 Subjective: The patient was admitted with foot infection, status post I and D, tolerated well. The patient had acute kidney injury secondary to prerenal ATN. The patient has episode of low blood pressure. The patient still has AFib with irregularity. Physical Examination: Vital Signs: Blood pressure 122/58, pulse of 70, afebrile. The patient had good urine output of 1350. Chest: Clear to auscultation. Heart: S1, S2. Regular. Abdomen: Soft, nontender. Extremities: Dressing on the right foot. Laboratory Data: WBC 7.1, H and H 8.9/26.5, platelets 211. Sodium 143, potassium 4, bicarb 23, BUN 58 and trending down, creatinine down to 1.7, uric acid 7.5, calcium 8.4, phosphorus 3.3, albumin 2.6, corrected calcium 9.4. Iron saturation 28, ferritin 120. Current Medications: The patient on include aspirin, vancomycin, Lovenox p.o., ferrous sulfate, metoprolol, Lexapro, pantoprazole, insulin. Assessment And Plan: 1. Acute kidney injury secondary to toxic acute tubular necrosis, poor perfusion acute tubular necrosis secondary to the low blood pressure, recovered, trending down. Off IV fluid. We will continue to monitor. 2. Hypertension. Hold Lasix. Continue metoprolol for rate control. 3. Foot infection, questionable osteo. Continue current antibiotic. We will follow up with primary. The patient cleared from the renal standpoint for discharge planning. Time spent Corordent the care discussing the case with the patient Family member (face to face) and staff member / other clinical practice consultant and placing order 35 min CORINNE Voice ID: [id number] Report ID: [id number] LATHA
[2020-03-01 23:16] LABS: Vitamin D 1,25-Dihydroxy Total 11 pg/mL (18-72); Vitamin D,1,25-OH2, D2 <8 pg/mL
[2020-03-01] MEDS: VANCOMYCIN 1.75 GM in NA CHLORIDE 0.9% 500 ML IVPB SCH (23:43)
[2020-03-02 00:30] LABS: Albumin, (SPE) 2.8 g/dL (3.8-4.8); Alpha-1-Globulins 0.3 g/dL (0.2-0.3); Gamma Globulins 0.9 g/dL (0.8-1.7); INTERPRETATION REPORT
[2020-03-02] MEDS: ALBUTEROL 2.5 MG/3 ML NEB SOL NEB SCH ×4 (01:10→19:50)
[2020-03-02] MEDS: METOPROLOL TAR 25 MG TAB PO SCH ×2 (05:10→17:47)
[2020-03-02 06:16] LABS: Absolute Lymphocytes (CBC) 0.5 K/uL (0.7-4.9); Basophils % 0.4 % (0-1.3); Hematocrit 24.9 % (39.6-49.0); Lymphocytes % 7.9 % (15.3-44.8); MPV 8.1 fL (7.6-11.3); RBC Red Blood Cell Count 2.46 M/uL (4.33-5.43)
[2020-03-02 06:25] LABS: Albumin 2.4 g/dL (3.4-5.0); Potassium 4.3 mmol/L (3.5-5.1)
[2020-03-02] MEDS: GUAIFENESIN/DM 5 ML UCUP PO SCH ×3 (06:33→22:30)
[2020-03-02] MEDS: INSULIN -REGULAR HUMAN 50 UNIT/0.5 ML ML SQ SCH ×4 (07:30→21:00)
[2020-03-02] MEDS: MUPIROCIN 2% OINT 22GM TUBE TOP SCH ×2 (09:00→21:00)
[2020-03-02] MEDS: JUVEN PACKET PO SCH ×2 (09:00→21:00)
[2020-03-02] MEDS: ENOXAPARIN 100 MG/ML SYR SQ SCH (10:31)
[2020-03-02] MEDS: PANTOPRAZOLE 40MG TABLET PO SCH ×2 (10:31→17:43)
[2020-03-02] MEDS: ASPIRIN 81 MG CHEWABLE TABLET PO SCH (10:31)
[2020-03-02] MEDS: ESCITALOPRAM 20 MG TAB PO SCH ×2 (10:31→22:28)
[2020-03-02] MEDS: CYANOCOBALAMIN 1,000 MCG TAB PO SCH (10:31)
[2020-03-02] MEDS: ASCORBIC ACID 500 MG TABLET PO SCH ×2 (10:32→22:29)
[2020-03-02] MEDS: FERROUS SULFATE 325 MG TAB PO SCH (10:32)
[2020-03-02] MEDS: INSULIN GLARGINE 100 UNITS/ML SQ SCH ×2 (10:33→22:30)
[2020-03-02] MEDS: ACETAMINOPHEN 500 MG TAB PO PRN (11:04)
--- NOTE | 2020-03-02 12:20 | PN ---
Date of Progress Note: 03/02/2020 Subjective: The patient is basically the same; however, his hemoglobin has dropped to 8.4, possibly combination of his hydration factor as he came in with 11 plus and slowly dropped since then with the addition of Lovenox which was necessitated post and for his cardiac arrhythmia. The latter was disc ussed with Cardiology, who felt that probably of doing okay for withholding the anticoagulants on tem porary basis to see till tomorrow as the H and H have to be stabilized probably transfuse slowly. The plus side is his creatinine has improved. The wound has no drainage, basical ly stable as well. continued slowly. HR/MODL Voice ID: [id number] Report ID: [id number]
[2020-03-02] MEDS: CODEINE 30MG/APAP 300MG TAB PO PRN ×2 (12:45→22:28)
--- NOTE | 2020-03-02 15:05 | PN ---
Date of Progress Note: 03/02/2020 Subjective: The patient was admitted with acute kidney injury secondary to prerenal. After hydration, the patient's kidney function has been improved. The patient had toe infection, status post debridement by Dr. Crenshaw. Found to have MRSA. The patient was started on vancomycin. The patient has incident of low blood pressure. After holding Lasix, kidney function stabilized and blood pressure has been stabilized. Physical Examination: Vital Signs: Blood pressure 140/64, pulse of 71, afebrile. The patient had good urine output of 1350. Chest: Clear to auscultation. Heart: S1, S2. Regular. Abdomen: Soft, nontender. Extremities: Dressing on the right foot. Laboratory Data: WBC 6.3, H and H 8.4/24.9. Sodium 141, potassium 4.3, bicarb 25, BUN 63, creatinine down to 1.5. Calcium 8.5, phosphorus of 3. Iron saturation 28, ferritin 120. Current Medications: The patient on include; 1. Aspirin. 2. Vancomycin. 3. Ferrous sulfate 325 daily. 4. Zofran. 5. Lorazepam. 6. Lexapro. 7. Insulin. Assessment And Plan: 1. Acute kidney injury secondary to prerenal, recovered, close to baseline. 2. Normal volume. I am going to keep holding diuresis. 3. Hypertension, controlled, optimal. Continue current medications. Continue metoprolol. Hold Lasix. 4. Diabetes as by primary. 5. Foot infection status post debridement. Follow up with Surgery. Continue current antibiotic dose appropriate. We will follow up. Vancomycin trough yesterday was 8.8. Dose has been adjusted. Time spent Corordent the care discussing the case with the patient Family member (face to face) and staff member / other advertising consultant and placing order 35 min CECELIA/STEPHAN Voice ID: [id number] Report ID: [id number] LATHA
[2020-03-03] MEDS: GUAIFENESIN/DM 5 ML UCUP PO SCH ×4 (01:00→20:15)
[2020-03-03] MEDS: ALBUTEROL 2.5 MG/3 ML NEB SOL NEB SCH ×4 (02:00→20:13)
[2020-03-03 06:06] LABS: Absolute Lymphocytes (CBC) 0.6 K/uL (0.7-4.9); Basophils % 0.7 % (0-1.3); Hematocrit 24.3 % (39.6-49.0); RBC Red Blood Cell Count 2.43 M/uL (4.33-5.43)
[2020-03-03 06:21] LABS: Potassium 4.3 mmol/L (3.5-5.1)
[2020-03-03] MEDS: METOPROLOL TAR 25 MG TAB PO SCH ×2 (06:26→17:26)
[2020-03-03] MEDS: INSULIN -REGULAR HUMAN 50 UNIT/0.5 ML ML SQ SCH ×4 (07:30→21:17)
[2020-03-03] MEDS: INSULIN GLARGINE 100 UNITS/ML SQ SCH ×2 (08:30→21:17)
[2020-03-03] MEDS: ESCITALOPRAM 20 MG TAB PO SCH ×2 (08:31→20:15)
[2020-03-03] MEDS: CYANOCOBALAMIN 1,000 MCG TAB PO SCH (08:31)
[2020-03-03] MEDS: ASCORBIC ACID 500 MG TABLET PO SCH ×2 (08:31→20:15)
[2020-03-03] MEDS: FERROUS SULFATE 325 MG TAB PO SCH (08:31)
[2020-03-03] MEDS: ASPIRIN 81 MG CHEWABLE TABLET PO SCH (08:31)
[2020-03-03] MEDS: PANTOPRAZOLE 40MG TABLET PO SCH ×2 (08:31→17:26)
[2020-03-03] MEDS: MUPIROCIN 2% OINT 22GM TUBE TOP SCH ×2 (08:32→20:16)
[2020-03-03] MEDS: JUVEN PACKET PO SCH ×3 (08:32→20:32)
[2020-03-03] MEDS: ENOXAPARIN 100 MG/ML SYR SQ SCH (08:32)
--- NOTE | 2020-03-03 10:37 | PN ---
Date of Progress Note: 03/03/2020 Subjective: Patient is awake, alert. No new complaints. Still complaining of some pain in his foot , which has not changed. Bowels are stable. Afebrile. Examination of the wound reveals it to be cl eva dry and intact. There is some erythema but there is no warmth or edema anymore. Assessment: Status post right second toe partial amputation. Recommendations: Continue MRSA treatment. I believe patient is going to be converted to an oral Zyv ox and then he will be discharged to the retirement. He is to follow up with [facility] in a couple of weeks. ALANA/MODToño Voice ID: [id number] Report ID: [id number]
[2020-03-03] MEDS: VANCOMYCIN 1.75 GM in NA CHLORIDE 0.9% 500 ML IVPB SCH (12:41)
[2020-03-03] MEDS: ACETAMINOPHEN 500 MG TAB PO PRN (12:42)
--- NOTE | 2020-03-03 12:51 | P.PN ---
Subjective Date of Service: 03/03/20 Chief Complaint: right foot pain Subjective Pt with DM, had LE ulcers, S/P debridment, wound culture with MRSA pt had ADEOLA with peak CR 2.3 Today no overnight events stable VS Hb slwoly trendign down will order b12 and folate level cont to hold IVF monitor vanco level Physical exam general: Awake and aler tNAD Neck; Supple, No elevated JVD hear: RRR, normal S1,2 no murmur or rub Chest: CTAB, no rlaes or wheezes Abdomen: Soft , Nt Extremities trace edema, Leg ulcer , feet dressed A/P Acute kidney injury secondary due to dehydration Cr improved monitor vanco level HTN controlled DM as per primary Foot infection status post debridement. wound culture MRSA monitor vanco level Anemia of chronic disease iron [id number] , SPEP no monoclonal disease will send for b12 and folate level PPI Physical Examination - Vital Signs Temperature: 97.2 F Blood Pressure: 133/63 Pulse: 67 Respirations: 18 Pulse Ox (%): 97 - Studies Medications List Reviewed: Yes Assessment And Plan Physician Review: Patient Assessed, Agree with Above Assessment and Plan
[2020-03-03] MEDS: CODEINE 30MG/APAP 300MG TAB PO PRN (14:27)
--- NOTE | 2020-03-03 14:52 | PN ---
Date of Progress Note: 03/03/2020 The patient does seem somewhat better both mentally and certainly for his PT and mobility is concerne d. His H and H are now stable. Awaiting disposition depending on the insurance company whether ther e is SNF unit or home, which would take some coordination. The Lovenox will be restarted with 40 and repeat CBC tomorrow and likely clear from insurance company at this stage and over the weekend, so i f blood work is okay tomorrow, the possibility of discharge was discussed with the family. HR/MODL Voice ID: [id number] Report ID: [id number]
[2020-03-03] MEDS: ENOXAPARIN 40 MG/0.4 ML SQ SCH (17:26)
[2020-03-04] MEDS: GUAIFENESIN/DM 5 ML UCUP PO SCH ×5 (00:30→18:11)
[2020-03-04] MEDS: CODEINE 30MG/APAP 300MG TAB PO PRN (00:35)
[2020-03-04] MEDS: ALBUTEROL 2.5 MG/3 ML NEB SOL NEB SCH ×4 (02:05→19:10)
[2020-03-04] MEDS: METOPROLOL TAR 25 MG TAB PO SCH ×2 (05:52→18:11)
[2020-03-04 06:11] LABS: Absolute Lymphocytes (CBC) 0.7 K/uL (0.7-4.9); Basophils % 0.7 % (0-1.3); MPV 8.1 fL (7.6-11.3); RBC Red Blood Cell Count 2.66 M/uL (4.33-5.43)
[2020-03-04 06:25] LABS: Potassium 4.3 mmol/L (3.5-5.1)
[2020-03-04 07:01] LABS: Folic Acid, (Folate) > 20.0 ng/mL (3.1-17.5)
[2020-03-04] MEDS: INSULIN -REGULAR HUMAN 50 UNIT/0.5 ML ML SQ SCH ×4 (07:30→21:00)
[2020-03-04] MEDS: MUPIROCIN 2% OINT 22GM TUBE TOP SCH ×2 (09:00→22:14)
[2020-03-04] MEDS: ASPIRIN 81 MG CHEWABLE TABLET PO SCH (09:34)
[2020-03-04] MEDS: FERROUS SULFATE 325 MG TAB PO SCH (09:34)
[2020-03-04] MEDS: ESCITALOPRAM 20 MG TAB PO SCH ×2 (09:34→22:12)
[2020-03-04] MEDS: PANTOPRAZOLE 40MG TABLET PO SCH ×2 (09:34→17:07)
[2020-03-04] MEDS: INSULIN GLARGINE 100 UNITS/ML SQ SCH ×2 (09:34→22:13)
[2020-03-04] MEDS: CYANOCOBALAMIN 1,000 MCG TAB PO SCH (09:34)
[2020-03-04] MEDS: ASCORBIC ACID 500 MG TABLET PO SCH ×2 (09:34→22:12)
[2020-03-04] MEDS: JUVEN PACKET PO SCH ×2 (09:35→22:13)
[2020-03-04] MEDS ORDERED: BISACODYL 10 MG RECTAL SUPP PR PRN (15:20)
--- NOTE | 2020-03-04 15:39 | RAD REPORT ---
EXAM DESCRIPTION: RAD - Chest Single View - 03/04/2020 3:31 pm CLINICAL HISTORY: shortness of breath COMPARISON: Portable February 29, 2020 TECHNIQUE: AP portable chest image was obtained 03/04/2020 3:31 pm . FINDINGS: Right base pleural and parenchymal opacification are again noted. There is slightly greate r opacification in the lateral mid right lung field and medial right base. No progressive left lung f ield finding. Heart size remains prominent but stable. No acute vascular engorgement seen. No pneumothorax. No acu te bony abnormality seen. No acute aortic findings suspected. IMPRESSION: Increased parenchymal opacification in the medial right base and lateral mid right lung field. Patient can be evaluated and monitored for developing pneumonia. Pleural and parenchymal opacification in the right base have not changed since February 28.
--- NOTE | 2020-03-04 17:05 | PN ---
Date of Progress Note: 03/04/2020 Subjective: The patient says he has been coughing significantly more overnight and today confirmed b y his , it is nonproductive, afebrile. Actually, his hemoglobin is somewhat better. He is due a vancomycin dose tonight and discussion of disposition with his unless a chest x-ray is possibly better to take him home where she has been taking care of him prior to this, and I could switch over to p.o. medication as the wound looks quite good at the present time. He is still in episodes of at rial flutter with controlled rate. If he continued to have normal hemoglobin, we may add a low-dose anticoagulation. HR/MODL Voice ID: [id number] Report ID: [id number]
[2020-03-04] MEDS: ENOXAPARIN 40 MG/0.4 ML SQ SCH (17:06)
[2020-03-05] MEDS: VANCOMYCIN 1.75 GM in NA CHLORIDE 0.9% 500 ML IVPB SCH (00:44)
[2020-03-05] MEDS: CODEINE 30MG/APAP 300MG TAB PO PRN ×2 (00:44→04:40)
[2020-03-05] MEDS: GUAIFENESIN/DM 5 ML UCUP PO SCH ×3 (00:44→12:28)
[2020-03-05] MEDS: ALBUTEROL 2.5 MG/3 ML NEB SOL NEB SCH ×2 (01:10→07:34)
[2020-03-05 03:03] VITALS: O2SAT 92
[2020-03-05 06:00] LABS: Absolute Lymphocytes (CBC) 0.7 K/uL (0.7-4.9); Basophils % 0.8 % (0-1.3); Hematocrit 26.8 % (39.6-49.0); Lymphocytes % 14.4 % (15.3-44.8); MPV 8.1 fL (7.6-11.3); RBC Red Blood Cell Count 2.63 M/uL (4.33-5.43)
[2020-03-05 06:07] LABS: Potassium 4.2 mmol/L (3.5-5.1)
[2020-03-05] MEDS: METOPROLOL TAR 25 MG TAB PO SCH (06:28)
[2020-03-05] MEDS: INSULIN -REGULAR HUMAN 50 UNIT/0.5 ML ML SQ SCH ×2 (07:30→11:30)
[2020-03-05] MEDS: MUPIROCIN 2% OINT 22GM TUBE TOP SCH (09:00)
[2020-03-05] MEDS: ESCITALOPRAM 20 MG TAB PO SCH (09:48)
[2020-03-05] MEDS: CYANOCOBALAMIN 1,000 MCG TAB PO SCH (09:48)
[2020-03-05] MEDS: ASPIRIN 81 MG CHEWABLE TABLET PO SCH (09:48)
[2020-03-05] MEDS: PANTOPRAZOLE 40MG TABLET PO SCH (09:48)
[2020-03-05] MEDS: FERROUS SULFATE 325 MG TAB PO SCH (09:48)
[2020-03-05] MEDS: ASCORBIC ACID 500 MG TABLET PO SCH (09:48)
[2020-03-05] MEDS: JUVEN PACKET PO SCH (09:49)
[2020-03-05] MEDS: INSULIN GLARGINE 100 UNITS/ML SQ SCH (09:49)
--- NOTE | 2020-03-05 12:59 | PN ---
Date of Progress Note: 03/05/2020 Subjective: The patient states he feels better today. He is sitting up in a chair, seems comfortabl e, will discharge on Augmentin [address] Mayo changing the Coreg to metoprolol. We utili zed this at home for his atrial flutter with stable controlled rate and we will add Eliquis 2.5 b.i.d . Home Health will continue with his dressing changes and we will ask for PT, OT, and he should have blood work on Friday. He will be seen in the [facility] on by me and in [address] Gordy bourne and follow up with Dr. Mayo in 2 weeks as well. The patient has just completed his IV vancom ycin last night. HR/MODL Voice ID: [id number] Report ID: [id number]
[2020-03-05 15:39] VITALS: BP 109/67; TEMP 97.4
--- NOTE | 2020-03-05 15:45 | PN ---
Date of Progress Note: 03/04/2020 Chief Complaint: Acute on chronic kidney injury. Subjective: The patient was found to have elevated creatinine up to 2.3. Baseline creatinine level is 1.1 to 1.2. The patient has chronic kidney disease stage 3 due to diabetes mellitus and hypertens ion. He was found to have a lower extremity ulcer nonhealing diabetic foot infection and underwent d ebridement. Wound culture showed MRSA. The patient was admitted to the hospital for IV fluids to tr eat acute kidney injury and received vancomycin for MRSA infection. Vancomycin level was evaluated t o adjust dose according to renal function. Renal function has improved over last 24 hours. Creatini ne level is somewhat improving to baseline. Review of Systems: General: Denies PND or orthopnea. Cardiovascular: Denies chest pain, palpitations. GI: Denies nausea, vomiting. Physical Examination: General: The patient denies complaints. Neck: Supple. No elevated JVD. Heart: S1, S2. No pericardial friction rub. Abdomen: Soft, benign, nontender. Chest: Clear to auscultation bilaterally. Extremities: Trace edema and dressing in place. Impression And Plan: 1.Acute kidney injury secondary to nonoliguric acute tubular necrosis, volume depletion. Continue t o avoid nonsteroidal anti-inflammatory medications. Monitor vancomycin level and adjust treatment ac cordingly. 2.Hypertensive heart and kidney disease. Continue blood pressure medications. Continue low-sodium diet. Monitor fluid balance. 3.Diabetes mellitus. Avoid metformin due to history of acute on chronic kidney injury. Continue in sulin. 4.Diabetic foot infection, status post debridement. Continue vancomycin and monitor vancomycin leve l. 5.Diabetes mellitus with renal manifestation associated with proteinuria. The patient has serum pro tein electrophoresis done, which showed no monoclonal disease. EB/MODL Voice ID: [id number] Report ID: [id number]
--- NOTE | 2020-03-07 14:47 | PN ---
Date of Progress Note: 03/05/2020 Chief Complaint: Acute on chronic kidney injury. Subjective: The patient was found to have elevated creatinine up to 2.3. Baseline creatinine level is 1.1 to 1.2. The patient has chronic kidney disease stage 3 due to diabetes mellitus and hypertens ion. He was found to have lower extremity nonhealing diabetic foot infection and underwent debrideme nt. Wound shows MRSA. The patient was admitted to the hospital for IV fluids to treat acute kidney injury and he was treated with vancomycin for MRSA infection. Vancomycin level was evaluated and dos e was adjusted according to the renal function. Review of Systems: Denies fever or chills. Physical Examination: Lungs: Diminished breath sounds at bases. Heart: S1, S2. Abdomen: Soft, benign. Extremities: Trace edema in both legs and dressing in place. Impression And Plan: 1.Acute kidney injury secondary to nonoliguric acute tubular necrosis due to volume depletion. Cont inue to avoid nonsteroidal anti-inflammatory medication. Monitor blood pressure. Monitor vancomycin level, adjust treatment accordingly. 2.Hypertensive heart and kidney disease. Continue blood pressure medication. Continue low-sodium d iet. Monitor fluid balance. 3.Diabetes mellitus. Avoid metformin due to history of acute kidney injury. Continue insulin. 4.Diabetic foot infection status post debridement. Continue vancomycin and adjust vancomycin accord ing to vancomycin level. 5.Diabetes mellitus with renal manifestation associated with proteinuria. The patient had serum pro tein electrophoresis done, which showed no monoclonal disease. Monitor proteinuria panel outpatient. The patient will need to follow up with booking police officer. TRINIDAD/STEPHAN Voice ID: [id number] Report ID: [id number]
== END 2020-03-05 13:54 | disposition home health service (06) | DRG 616 ==
LOC: ER 19:20 → 2ND 21:41
PROVIDERS: ADMIT Internal Medicine; ATTEND Family Medicine
PROC: 0Y6R0Z1 Detachment at Right 2nd Toe, High, Open Approach (ICD-10-PCS; principal; 2020-02-27 09:00)
DX: E11.621 Type 2 diabetes mellitus with foot ulcer (principal); L89.153 Pressure ulcer of sacral region, stage 3; E11.52 Type 2 diabetes mellitus with diabetic peripheral angiopathy with gangrene; I96 Gangrene, not elsewhere classified; I48.92 Unspecified atrial flutter; L03.031 Cellulitis of right toe; N17.0 Acute kidney failure with tubular necrosis; E11.51 Type 2 diabetes mellitus with diabetic peripheral angiopathy without gangrene; Z88.1 Allergy status to other antibiotic agents; Z88.5 Allergy status to narcotic agent; I25.10 Atherosclerotic heart disease of native coronary artery without angina pectoris; Z95.1 Presence of aortocoronary bypass graft; E78.5 Hyperlipidemia, unspecified; Z86.73 Personal history of transient ischemic attack (TIA), and cerebral infarction without residual deficits; Z79.82 Long term (current) use of aspirin; Z79.4 Long term (current) use of insulin; Z79.891 Long term (current) use of opiate analgesic; Z79.899 Other long term (current) drug therapy; I25.2 Old myocardial infarction; Z85.828 Personal history of other malignant neoplasm of skin; Z95.2 Presence of prosthetic heart valve; E11.65 Type 2 diabetes mellitus with hyperglycemia; Z85.038 Personal history of other malignant neoplasm of large intestine; Z96.642 Presence of left artificial hip joint; L97.513 Non-pressure chronic ulcer of other part of right foot with necrosis of muscle; E11.40 Type 2 diabetes mellitus with diabetic neuropathy, unspecified; E11.22 Type 2 diabetes mellitus with diabetic chronic kidney disease; I12.9 Hypertensive chronic kidney disease with stage 1 through stage 4 chronic kidney disease, or unspecified chronic kidney disease; I48.0 Paroxysmal atrial fibrillation; N40.0 Benign prostatic hyperplasia without lower urinary tract symptoms; B95.62 Methicillin resistant Staphylococcus aureus infection as the cause of diseases classified elsewhere; D63.8 Anemia in other chronic diseases classified elsewhere; N18.30 Chronic kidney disease, stage 3 unspecified; Z20.828 Contact with and (suspected) exposure to other viral communicable diseases
CPT/HCPCS: 36415; 71045; 76770; 80048; 80053; 80069; 80076; 80202; 81003; 82274; 82550; 82565; 82570; 82607; 82652; 82728; 82746; 82947; 83540; 83605; 83970; 84156; 84165; 84300; 84443; 84466; 84550; 85025; 85044; 85610; 85730; 87040; 87070; 87077; 87186; 87205; 88108; 88305; 88311; 93005; 93926; 93971; 94640; 97110; 97116; 97161; 97530; 99215; 99285; J0330; J1170; J1644; J1650; J1815; J2175; J2270; J2405; J2543; J2704; J3370; J3590; J7030; J7040; U0002

== ENCOUNTER 2020-03-31 09:40 | Inpatient (IN) | payer OTHER ==
--- OUTSIDE RECORDS SUMMARY | 2020-03-31 09:43 | XMS REPORT | Summary of Care ---
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 Dyslipidemia; [address] [place] [address], [id number] [place] [address] [phone] [address] [phone] Allergies Active Allergy Reactions Severity Noted Date Comments Bacimycin Rash 11/04/2016 Morphine Hallucinations 11/04/2016 Sulfa (Sulfonamide Antibiotics) Rash 7 documented as of this encounter (statuses as of 03/29/2020) Medications Medication Sig Dispensed Refills Start Date End Date Status finasteride 5 mg Take 5 mg by 3 09/23/2016 Active tablet mouth daily. HEMOCYTE-PLUS 106 TAKE ONE 8 09/05/2016 A ctive mg iron- 1 mg Cap CAPSULE BY MOUTH EVERY DAY vitamin B-12 (B-12 Take 500 mcg 0 Active DOTS) 500 mcg by mouth tablet daily. vitamin C with hollie Take 1,000 mg 0 Active hips (VITAMIN C) by mouth 1,000 mg tablet daily. ferrous sulfate Take 325 mg 0 Ac tive (IRON, FERROUS by mouth 3 SULFATE,) 325 mg (three) times (65 mg iron) tablet daily with meals. ASCENSIA BREEZE 2 Use as 300 Strip 1 07/14/[address] directed, TID, DX:E11.9 sennosides (SENOKOT Take by 0 Active ORAL) mouth. acetaminophen Take 150 mg 0 Acti ve (TYLENOL ARTHRITIS by mouth. ORAL) furosemide 20 mg 0 11/22/2019 Ac tive tablet amitriptyline 50 mg Take 50 mg by 0 08/26/2019 Active tablet mouth at bedtime. Insulin [place], USE 100 Each 3 11/23/2019 Ac tive Disposable, (MARITZA DIRECTED WITH PEN NEEDLE) 32 INSULIN gauge x 5/32" DAILY, NdleIndications: DX:E11.9 Type 2 diabetes mellitus with diabetic nephropathy, with long-term current use of insulin lancets (ONE TOUCH Use as 300 Each 3 11/23/2019 Active DELICA) 33 gauge directed, MiscIndications: TID, DX:E11.9 Type 2 diabetes mellitus with diabetic nephropathy, with long-term current use of insulin blood sugar USE 300 Strip 3 11/23/2019 Active diagnostic DIRECTED 3 (ONETOUCH VERIO) TIMES A DAY, stripIndications: DX:E11.9 Type 2 diabetes mellitus with diabetic nephropathy, with long-term current use of insulin Cinnamon Bark Take 1 0 Active (CINNAMON) 500 mg capsule by Cap mouth daily. multivit-min/folic Take 1 0 A ctive acid/vit K1 capsule by (TRUEPLUS DIABETIC mouth daily. MULTIVITAMIN ORAL) turmeric 400 mg Cap Take 1 0 Active capsule by mouth daily. glucosamine/chondr Take 1 tablet 0 Active bravo A sod by mouth (GLUCOSAMINE-CHONDR daily. OITIN) 1,500-1,200 mg/30 mL Liqd insulin degludec inject 30 30 mL 1 03/29/2020 Ac tive (TRESIBA FLEXTOUCH Units under U-200) 200 unit/mL the skin (3 mL) daily. E11.65 InPnIndications: Type 2 diabetes mellitus with diabetic nephropathy, with long-term current use of insulin pentoxifylline 400 Take 400 mg 0 Active mg SR tablet by mouth 3 (three) times daily. apixaban (ELIQUIS) Take 5 mg by 0 Active 2.5 mg tablet mouth daily. aspirin 81 mg Take 81 mg by 0 Di scontinued chewable tablet mouth daily. 0 insulin degludec inject 24-28 27 mL 1 11/23/2019 Discontinued (TRESIBA FLEXTOUCH Units under 0 (Reorder) U-200) 200 unit/mL the skin (3 mL) daily. E11.65 InPnIndications: Type 2 diabetes mellitus with diabetic nephropathy, with long-term current use of insulin documented as of this encounter (statuses as of 03/29/2020) Active Problems Problem Noted Date Hypoglycemia 02/10/2017 Type 2 diabetes mellitus with proteinuria 11/04/2016 Dyslipidemia 11/04/2016 Essential hypertension 11/04/2016 documented as of this encounter (statuses as of 03/29/2020) Immunizations Name Administration Dates Next Due Td 11/21/2016 documented as of this encounter Social History Tobacco Use Types Packs/Day Years Used Date Never Smoker Smokeless Tobacco: Never Used Sex Assigned at Date Recorded Not on file COVID-19 Exposure Response Date Recorded In the last month, have you been in contact with No / Unsure 03/29/2020 11:26 AM BULL LADLE TENDER someone who was confirmed or suspected to have Coronavirus / COVID-19? documented as of this encounter Last Filed Vital Signs Vital Sign Reading Time Taken Comments Blood Pressure 128/64 03/29/2020 11:50 AM BULL LADLE TENDER Pulse 46 03/29/2020 11:50 AM BULL LADLE TENDER Temperature - - Respiratory Rate - - Oxygen Saturation 99% 03/29/2020 11:50 AM BULL LADLE TENDER Inhaled Oxygen Concentration - - Weight - - Height - - Body Mass Index - - documented in this encounter Patient Instructions Patient InstructionsBrady Mckeon MD - 03/29/2020 2:30 PM CSTIncreaseTresiba to 30units daily Check sugar reading in afternoon 2-3 times a week Try to cut down the intake of peanut butter sandwich to half OD the current amount LADLE TENDER documented in this encounter Progress Notes Brady Mckeon MD - 03/29/2020 2:30 PM CST Chief Complaint: follow up for Type 2 diabetes mellitus HPI Patient is a 84 year old /White male who is here today for Diabetes Mellitus Type 2 with proteinuria. Patient's diabetes is complicated by dyslipidemia, hypertension, atherogenic diet and obesity. 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 Had right 2nd toe amputation in 02/2020 and unable to received Tresiba during stay in hospital. Reports glucose has been trending higher since Patient usually checks blood glucoses once a day fasting in the AM and has brought in the blood sugars to be reviewed today. Average blood sugar fasting at 200 with range at 140-234. One Pm reading at 333 Patient reports no symptoms or episodes of hypoglycemia. Lowest BGs at 120 Patient is compliant with diabetes medication. Diabetes regimen: Tresiba 24-28 units, most time taking 26 units daily Diet: semicompliant. Eats 3 meals per day. Breakfast consists of foods like eggs, hines, rye toast, orange juice and tomato juice (V8). Lunch consists of 1/2 can of tuna or sardines or a peanut butter jelly sandwich. Dinner is "hard to tell" but sometimes chicken or fish. Patient reports eating minimal potatoes, rice, pasta. He eats pizza 1x per week. Exercise: Very minimal, recently only getting up to use restroom. Walks with a walker due to back, neck, and hip pain s/p bilateral hip replacement, spinal stenosis and recent toe amputation Following managed by PCP/ cardiology: Edema in LE: furosemide 20mg. Patient switched from losartan to furosemide due to edema. Dyslipidemia: Not at goal due to h/o statin-induced myalgias with most statins in past. Dyslipidemiacurrently not controlled with medication. DIABETIC HEALTH MAINTENANCE Last Ophthalmology visit was 01/2020 , no retinopathy.. Patient on ANISHA/ARB therapy - No. Patient stopped taking losartan and switched to furosemide. Per nephrology Patient on ASA therapy -Yes, takes aspirin 81mg po daily Patient on Statin/Fibrate therapy - No, patient reports adverse side effects on statins. Patient instructed about daily feet exams, last sensation exam was 11/23/2019 Patient has received Nutrition/Diet/Diabetes Education 2019. HISTORY Past Medical History: Diagnosis Date Colon cancer Diabetes mellitus Dyslipidemia Skin cancer, basal cell s/p radiation 2016 Past Surgical History: Procedure Laterality Date COLECTOMY 05/2017 [facility] TOTAL HIP ARTHROPLASTY Bilateral VALVE REPLACEMENT 2012 Family History Problem Relation Age of Onset Diabetes Mother Diabetes Father Diabetes Sister Diabetes Brother Social History Socioeconomic History Marital status: Spouse name: Not on file Number of children: Not on file Years of education: Not on file Highest education level: Not on file Occupational History Not on file Social Needs Financial resource strain: Not on file Food insecurity Worry: Not on file Inability: Not on file Transportation needs Medical: Not on file Non-medical: Not on file Tobacco Use Smoking status: Never Smoker Smokeless tobacco: Never Used Substance and Sexual Activity Alcohol use: Not on file Drug use: Not on file Sexual activity: Not on file Lifestyle Physical activity Days per week: Not on file Minutes per session: Not on file Stress: Not on file Relationships Social connections Talks on phone: Not on file Gets together: Not on file Attends yarsani service: Not on file Active member of club or organization: Not on file Attends meetings of clubs or organizations: Not on file Relationship status: Not on file Intimate partner violence Fear of current or ex partner: Not on file Emotionally abused: Not on file Physically abused: Not on file Forced sexual activity: Not on file Other Topics Concern Not on file Social History Narrative Not on file REVIEW OF SYSTEMS Constitutional: + fatigue, Eyes: +occasional blurred vision. Denies eye pain. Next eye appointment 11/24/2019. Neck: +stiffness s/p laminectomy and spinal stenosis. Denies pain, swelling, hoarseness, or bumps. Cardiovascular: denies chest pain , denies irregular pulse and denies palpitations. Respiratory: + dyspnea on exertion and denies shortness of breath at rest. Denies cough. Gastrointestinal: denies abdominal pain, denies N/V, denies constipation and denies diarrhea. Genitourinary: +BPH. Denies burning, dysuria, hematuria, or incontinence. Musculoskeletal: + back pain, + toe amputation Skin: Underwent surgical removal of skin cancer s/p chemotherapy (finished in 05/2018). Denies new moles or discoloration. Neuro: + numbness , + tingling worse in R hand. Denies tremor. Psych: Denies anxiety, depression, or insomnia. Endocrine:, denies intolerance to cold, denies intolerance to heat, denies polydipsia, denies polyphagia and denies polyuria. PHYSICAL EXAM No results found for: POCGLU CREATININE (mg/dL) Date Value 02/10/2017 1.40 (H) No results found for: CHOL No results found for: HDL No results found for: LDL No results found for: TRIG No results found for: ALBUCREAT, UALBCREAT POCT HBA1C (%) Date Value 03/29/2020 9.1 (A) 11/23/2019 8.7 (A) BP 128/64 (BP Location: Right arm, Patient Position: Sitting, BP CUFF SIZE: Adult Medium) | Pulse (!) 46 | SpO2 99% General: alert, oriented times three, appearing age appropriate but fatigued. Head: normocephalic, no masses, lesions, tenderness or abnormalities. Eyes: anicteric sclera, pupils are equally round and reactive to light. Neck: +acanthosis nigricans Thyroid: normal size and consistency to palpation. Lungs: good diaphragmatic excursion, lungs clear to auscultation bilaterally. Heart: regular rate and rhythm, no murmurs, gallops or rubs. Abdomen: abdomen soft Neuro: +neuropathy in feet. Extremities/Musculoskeletal: +bilateral pedal edema (2+ pitting). Compressive dressing in place 02/2020 CMP/CBC done in outside hospital CMP and CBC results were requested from patient's oncologist and PCP at this visit. 07/2018 GFR 52 Creatinine 1.33 A1C 8.3 States recent lab done by [facility] ASSESSMENT/PLAN 1. Type 2 diabetes mellitus with diabetic nephropathy, with long-term current use of insulin -A1C (target=7-8%): 8.2 (06/07) --> 8.7 (12/05) --> 9.1 (04/07) -glucose range: AM fasting Fluctuating. Concerns he has post prandial hyperglycemia - without hypoglycemia -complication: neuropathy and nephropathy -medication limitation: Metformin stopped since colon surgery for cancer in 05/2017 -diet: semicompliant -exercise: limited by back pain/toe amputation Plan - POCT HEMOGLOBIN A1C TEST - insulin degludec (TRESIBA FLEXTOUCH U-200) 200 unit/mL (3 mL) InPn; inject 30 Units under the skindaily. E11.65 Dispense: 30 mL; Refill: 1 Patient Instructions IncreaseTresiba to 30units daily Check sugar reading in afternoon 2-3 times a week Try to cut down the intake of peanut butter sandwich to half OD the current amount 2. Stage 3b chronic kidney disease -Followed by nephrology /PCP 3. Dyslipidemia and HTN -Followed by software developer consultant/ PCP documented in this encounter Plan of Treatment Date Type Specialty Care Team Description 08/09/2020 Office Visit Endocrinology Diabetes & Ramu Mckeon MD Metabolism [address] [place] [address] [phone] Health Maintenance Due Date Last Done Comments Depression Screening 1947 DTaP,Tdap,and Td Vaccines (1 - 08/24/1955 11/21/2016 Tdap) Zoster Recombinant Vaccine 1986 (SHINGRIX) (1 of 2) Medicare Wellness Visit 2001 PNEUMOCOCCAL VACCINES 65+ (1 of 1 2001 - PPSV23) INFLUENZA VACCINE (#1) 2020 HgA1C 05/25/2020 11/23/2019, 05/25/2019, 08/10/2018, Additional history exists CREATININE (SERUM) 11/01/2020 11/02/2019, 02/10/2017 LDL-C 11/01/2020 11/02/2019 URINE MICROALBUMIN 11/01/2020 11/02/2019 FOOT EXAM 11/22/2020 11/23/2019, 11/23/2019, 05/25/2019, Additional history exists EYE EXAM 02/15/2021 02/16/2020, 05/05/2018 documented as of this encounter Procedures Procedure Name Priority Date/Time Associated Comments Diagnosis POCT HEMOGLOBIN A1C Routine 03/29/2020 11:49 AM Type 2 diabete s Results for this TEST BULL LADLE TENDER mellitus with procedure are in diabetic the results nephropathy, with section. 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
--- OUTSIDE RECORDS SUMMARY | 2020-03-31 09:43 | XMS REPORT | Continuity of Care Document ---
:1935 Author Organization [facility] t Address [address] [place] [address] Care Team Providers Name Role Phone Asked, Pcp Primary Care Physician Unavailable Mike MALDONADO Attending Clinician Sylvester Montalvo Attending Clinician Problems Condition Condition Condition Status Onset Resolution Last Treating Co mments Source Name Details Category Date Date Treatment Clinician Date M54.5 - Diagnosis Active 2016-052017-02-27 Me moria LOW BACK 0-12 15:00:00 l PAIN M54.5 - 00:01: Joseph LOW BACK 00 PAIN Active 02/27/2017 [facility] [place] Pneumococc Problem Resolve 2017-03-02 Memoria al d 05:53:19 l infectious Sanju n disease Pneumococc (disorder) al infectious disease (disorder) Resolved Problem 03/02/2017 [facility] [place] Simple Problem Active 2017-03-02 Memor ia obesity 05:53:19 l (disorder) Simple Herm darcy obesity (disorder) Active Problem 03/02/2017 [facility] Allergies, Adverse Reactions, Alerts Allergy Allergy Status Severity Reaction(s) Onset Inactive Treating Comm ents Source Name Type Date Date Clinician Bactrim Bactrim Active Frannie Ruiz morphine morphine Active Bennie Ruiz Social History Social Habit Start Date Stop Date Quantity Comments Source Sex Assigned At [place] Smoking Status Start Date Stop Date Source Social History 2017-02-26 20:13:2017-02-26 20:13:07 [facility] Medications This patient has no known medications. Procedures Procedure Date / Time Performed Performing Clinician Elizabeth barry AVR - Aortic valve [facility] replacement Cataract surgery [facility] Operation on neck [facility] Shamika nn Plan of Care Planned Activity Planned Date Details Comments Source Future Scheduled 2019-12-18 INFLUENZA VACCINE [place] [facility] 00:00:00 [code = INFLUENZA VACCINE] Future Scheduled 2001 65+ PNEUMOCOCCAL [place] [facility] Test 00:00:00 VACCINE (1 of 1 - PPSV23) [code = 65+ PNEUMOCOCCAL VACCINE (1 of 1 - PPSV23)] Future Scheduled 1986 SHINGLES VACCINES (#1) [place] [facility] 00:00:00 [code = SHINGLES VACCINES (#1)] Encounters Start End Encounter Admission Attending Care Care Encounter Source Date/Time Date/Time Type Type Clinicians Facility Department ID 2020-03-29 2020-03-29 Office [facility] [id number] 17 11:30:43 12:29:44 Visit Brady Sanchez [id number] [place] [id number] [place] [id number] [facility] 2017-02-27 2017-02-27 Outpatient Jonathan Montalvo [facility] [id number] 14:50:00 23:59:00 C 00 Results This patient has no known results.
--- OUTSIDE RECORDS SUMMARY | 2020-03-31 09:43 | XMS REPORT | Continuity of Care Document ---
:1935 Author Organization [facility] Care Team Providers Name Role Phone [facility] Unavailable Un available Problems Problem Status Onset Classification Date Comments Sourc e Date Reported M54.5 - LOW BACK Active 02/28/20 [facility] PA[facility] 17 [facility] Pneumococcal Resolved Problem 03/02/2017 [facility] OPI D infectious [place] disease (disorder) Simple obesity Active Problem 03/02/2017 [facility] O PID (disorder) [facility] Medications No Data Provided for This Section Allergies, Adverse Reactions, Alerts Substance Category Reaction Severity Reaction Status Date Comments S ource type Reported Bactrim Assertion Drug Active MH OPI D allergy [place] morphine Assertion Drug Active MH OP ID allergy [facility] Immunizations No Data Provided for This Section Results No Data Provided for This Section Pathology Reports No Data Provided for This Section Diagnostic Reports Report Value Date Source Spine lumbar EXAM: XR LUMBAR SPINE 4 VIEWS 02/27/2017 [facility] [place] flex/ext 2 view DX DATE: 02/27/2017 3:04 [...] Location Location Encounter Encounter Reason Attending ADM [place] Stat Source Details Type Number For Provider Date Date Visit Outpatient [id number] ABRIL NICE 02/26 [facility] [id number] FRANTZ 02/27 [facility] Di[facility] [id number] Gwendolyn Landry 02/27 02/28 [facility] /2016 [facility] [id number] GWENDOLYN LANDRY 03/12 [facility] Procedures Procedure Code Date Perfomer Comments Source AVR - Aortic valve [id number] OPI D replacement [facility] Cataract surgery [id number] [facility] Hip replacement [id number] [facility] Operation on neck [id number] [facility] [place] Assessment and Plan No Data Provided for [...]
--- OUTSIDE RECORDS SUMMARY | 2020-03-31 09:43 | XMS REPORT | Summary of Care ---
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 Insulin [place], USE 100 Each 3 11/23/2019 Ac tive [...] with No / Unsure 03/29/2020 11:26 AM WARP DYEING VAT TENDER someone who was confirmed or suspected to have Coronavirus / COVID-19? documented as of this encounter Last Filed Vital Signs Vital Sign Reading Time Taken Comments Blood Pressure 128/64 03/29/2020 11:50 AM WARP DYEING VAT TENDER Pulse 46 03/29/2020 11:50 AM WARP DYEING VAT TENDER Temperature - - Respiratory Rate - - Oxygen Saturation 99% 03/29/2020 11:50 AM WARP DYEING VAT TENDER Inhaled Oxygen Concentration - - Weight - - Height - - Body Mass Index - - documented in this encounter Patient Instructions Patient InstructionsBrady Mckeon MD - 03/29/2020 2:30 PM CSTIncreaseTresiba to 30units daily Check sugar reading in afternoon 2-3 times a week Try to cut down the intake of peanut butter sandwich to half OD the current amount DYEING VAT TENDER documented in this encounter Progress Notes [...] 03/2020 H/o 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 Type 2 diabetes mellitus with [...] /PCP 3. Dyslipidemia and HTN -Followed by batcher operator/ PCP documented in this encounter Plan of Treatment Date Type Specialty Care Team Description 08/09/2020 Office Visit Endocrinology Diabetes & Ramu Mckeon MD Metabolism [address] [place] [address] [phone] Health Maintenance Due Date Last Done Comments [...] 2 diabete s Results for this TEST WARP DYEING VAT TENDER mellitus with procedure are in diabetic the results nephropathy, with section. long-term current use of insulin documented in this encounter Results POCT HEMOGLOBIN A1C TEST (03/29/2020 11:49 AM WARP DYEING VAT TENDER) Pathologist Sig nature POCT HBA1C 9.1 [...] e / Group Dates AETNA - AETNA [id number] 2016-Michael TERESA Medic are Adv MANAGED MEDICARE ADV nt [id number] [place] [address] ([place]) [place] [address] documented as of this encounter
--- OUTSIDE RECORDS SUMMARY | 2020-03-31 09:43 | XMS REPORT | Clinical Summary ---
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
[2020-03-31] MEDS ORDERED: METOPROLOL TARTRATE 5 MG/5 ML INJ IV ONE (10:30)
[2020-03-31 10:32] LABS: Absolute Lymphocytes (CBC) 0.9 K/uL (0.7-4.9); Basophils % 0.6 % (0-1.3); Hematocrit 32.4 % (39.6-49.0); Lymphocytes % 7.4 % (15.3-44.8); MPV 8.6 fL (7.6-11.3); RBC Red Blood Cell Count 3.21 M/uL (4.33-5.43)
[2020-03-31 10:33] LABS: Protime INR 1.08
--- NOTE | 2020-03-31 10:40 | RAD REPORT ---
EXAM DESCRIPTION: RAD - Chest Single View - 03/31/2020 10:34 am CLINICAL HISTORY: DYSPNEA COMPARISON: Portable March 04 TECHNIQUE: AP portable chest image was obtained 03/31/2020 10:34 am . FINDINGS: No new lung parenchymal process. Pleural and parenchymal opacification at the right lung b ase is similar to fractionally improved. No new or progressive findings. Heart size is upper normal. Heart size and central vasculature have decreased since the March 04 s tudy. No pneumothorax. No new or enlarging pleural effusion. No acute bony abnormality seen. No acute aortic findings suspected. IMPRESSION: Chronic pleural and parenchymal opacification right base not substantially different fro m comparison. No progression is present. Cardiomegaly and vascular engorgement seen March 04 have resolved.
[2020-03-31 10:53] LABS: Blood Morphology Comment NOT SEEN (NOT SEEN); Platelet Estimate ADEQ
[2020-03-31] MEDS ORDERED: CEFEPIME 2 GM VIAL ONE (10:59)
[2020-03-31] MEDS ORDERED: NA CHLORIDE 0.9% 100 ML ONE (11:00)
[2020-03-31 11:02] LABS: Albumin 2.9 g/dL (3.4-5.0); Bilirubin Direct 0.2 mg/dL (0-0.2); Bilirubin Total 0.6 mg/dL (0.2-1.0); CKMB Creatine Kinase MB 6.5 ng/mL (0.3-3.6); Protein, Total 7.4 g/dL (6.4-8.2)
[2020-03-31 11:15] LABS: Troponin (Emerg Dept Use Only) 3.95 ng/mL (0.0-0.045)
[2020-03-31] MEDS ORDERED: ASPIRIN 81 MG CHEWABLE TABLET ONE (11:45)
[2020-03-31] MEDS ORDERED: VANCOMYCIN/NS 1 gm 1 GM/250 ML BAG IV ONE (11:45)
[2020-03-31] MEDS ORDERED: ENOXAPARIN 80 MG/0.8 ML SQ ONE (11:45)
[2020-03-31] MEDS ORDERED: APIXABAN 5 MG TABLET PO ONE (12:15)
[2020-03-31] MEDS ORDERED: SOTALOL HCL 80 MG TAB ONE (12:45)
[2020-03-31] MEDS ORDERED: TRAMADOL HCL 50 MG TAB ONE (12:46)
--- NOTE | 2020-03-31 12:55 | ER ---
Nurse's Notes [facility] Name: Tony Zayas Jr Age: 84 yrs Sex: Male : 1935 Arrival Date: 03/31/2020 Time: 09:53 Bed 3 Private MD: Diagnosis: Atrial fibrillation and flutter-with RVR;Non-ST elevation (NSTEMI) myocardial infarction Presentation: 03/31 09:53 Chief complaint: EMS states: called out for being generalized weakness, on scene pt was em hypotensive 80s systolic, was tachy at 130s, monitor was reading VTach , SPO2 76%, pt was A\T\O x 4, pt reports generalized weakness, had recent toe amputation on the right foot about 2 weeks ago, denies fever, gave 500 mL NS KNOTTER, 20 G R hand. Coronavirus screen: Client denies travel out of the [place] in the last 14 days. Ebola Screen: Patient negative for fever greater than or equal to 101.5 degrees Fahrenheit, and additional compatible Ebola Virus Disease symptoms Patient denies exposure to infectious person. Patient denies travel to an Ebola-affected area in the 21 days before illness onset. No symptoms or risks identified at this time. Initial Sepsis Screen: Does the patient meet any 2 criteria? RR > 20 per min. HR > 90 bpm. Yes Does the patient have a suspected source of infection? No. Patient's initial sepsis screen is negative. If YES to both, name of provider notified: Royce EDWARDS Risk Assessment: Do you want to hurt yourself or someone else? Patient reports no desire to harm self or others. Onset of symptoms was March 31, 2020. 09:53 Method Of Arrival: EMS: [facility] em 09:53 Acuity: SVETA 2 em Historical: - Allergies: 10:09 Morphine; em 10:09 Sulfa (Sulfonamide Antibiotics); em 10:09 TRIMETHOPRIM; em 10:09 flu shot; em 10:09 Bextra; em 10:09 Clindamycin; em 10:09 Doxycycline; em 10:09 Pneumovax 23; em - Home Meds: 10:09 aspirin 81 mg Oral chew 1 tab once daily [Active]; Vitamin C Oral daily [Active]; em furosemide 20 mg Oral tab 1 tab once daily [Active]; lisinopril 10 mg Oral tab 1 tab once daily [Active]; 13:20 Lasix 40 mg Oral tab 1 tab once daily [Active]; amitriptyline-chlordiazepoxide 12.5-5 em mg oral tab [Active]; lisinopril 10 mg Oral tab [Active]; Eliquis 2.5 mg oral tab 1 tab in the AM [Active]; 13:22 pentoxifylline 400 mg oral TbER [Active]; em - PMHx: 10:09 Arthritis; BPH; Diabetes - IDDM; Hypertension; wound care; em - PSHx: 10:09 aortic valve sx; colon sx; colon cancer; left hip; right hip; right toe amputation; em - Immunization history:: Adult Immunizations not up to date. - Social history:: Smoking status: Patient denies any tobacco usage or history of. Screenin:53 Abuse screen: Denies threats or abuse. Nutritional screening: No deficits noted. em Tuberculosis screening: No symptoms or risk factors identified. Fall Risk None identified. Assessment: 09:53 General: Appears in no apparent distress. comfortable, Behavior is calm, cooperative, em Reports fatigue for 12-24 hours, Denies fever. Pain: Complains of pain in right hip, heel of right foot and heel of left foot. Neuro: Level of Consciousness is awake, alert, obeys commands, Oriented to person, place, time, situation. Cardiovascular: Reports shortness of breath, Denies chest pain, palpitations, Capillary refill < 3 seconds Patient's skin is warm and dry. Respiratory: Airway is patent Respiratory effort is even, unlabored, Respiratory pattern is regular, tachypnea. GI: Patient currently denies nausea, vomiting. Derm: Skin is intact, is fragile, is thin, Skin is pink, warm \T\ dry. Musculoskeletal: Amputation of right second toe. Range of motion: intact in all extremities. 10:23 Reassessment: rate slowed from 130 to low 100's after 2.5 mg of Lopressor, provider em notified. 11:56 Reassessment: Patient appears in no apparent distress at this time. Patient and/or em family updated on plan of care and expected duration. Pain level reassessed. Patient is alert, oriented x 3, equal unlabored respirations, skin warm/dry/pink. 12:30 Reassessment: reports pain in the right hip, pt reports taking Tramadol 50 mg at home, em provider notified. 13:52 Reassessment: Dr. Gillespie at bedside. em 15:00 Reassessment: Patient appears in no apparent distress at this time. Patient and/or em family updated on plan of care and expected duration. Pain level reassessed. 15:19 Reassessment: attempted to give report at this time. em 16:30 Reassessment: Patient appears in no apparent distress at this time. Patient and/or em family updated on plan of care and expected duration. Pain level reassessed. Patient is alert, oriented x 3, equal unlabored respirations, skin warm/dry/pink. Vital Signs: 09:53 BP 95 / 80; Pulse 130; Resp 24; Temp 97.6; Pulse Ox 98% on R/A; Height 6 ft. 0 in. em (182.88 cm); 10:11 BP 109 / 53; Pulse 130; Resp 26; Pulse Ox 99% on R/A; em 10:27 BP 95 / 57; Pulse 102; Resp 18; Pulse Ox 99% on R/A; em 11:27 Weight 80 kg; em 11:56 BP 108 / 70; Pulse 129; Resp 20; Pulse Ox 98% on R/A; em 13:18 BP 93 / 50; Pulse 90; Resp 24; Pulse Ox 100% on R/A; 5 14:00 BP 107 / 48; Pulse 94; Resp 24; Pulse Ox 97% on R/A; em 15:00 BP 95 / 52; Pulse 94; Resp 22; Pulse Ox 98% on R/A; em 16:00 BP 94 / 60; Pulse 89; Resp 18; Pulse Ox 99% on R/A; em 11:27 Body Mass Index 23.92 (80.00 kg, 182.88 cm) em ED Course: 09:53 Patient arrived in ED. em 09:53 Patient has correct armband on for positive identification. Placed in gown. Bed in low em position. Call light in reach. Side rails up X2. reo asset manager on. Pulse ox on. NIBP on. 09:53 Maintain EMS IV. Dressing intact. Good blood return noted. Site clean \T\ dry. Gauge \T\ em site: 20 R hand. 10:03 Royce Nolen PA is PHCP. jr8 10:03 Lc Pulido MD is Attending Physician. jr8 10:04 Triage completed. em 10:09 Arm band placed on. em 10:22 Freddie Ricks, UZHAIR is Primary Nurse. em 10:34 Chest Single View XRAY In Process Unspecified. EDMS 10:52 Initial lab(s) drawn, by skilled laborer, sent to lab. EKG done, by ED staff, reviewed by Royce EDWARDS. 12:54 Dickson Gillespie MD is Hospitalizing Provider. jr8 15:15 Wound care: to amputation located on right second toe and heel of right foot Patient em tolerated well. wet to dry, Kerlix and deandre wrapped. 16:39 No provider procedures requiring assistance completed. Patient admitted, IV remains in em place. Administered Medications: 10:18 Drug: Lopressor 2.5 mg Route: IVP; Site: right hand; em 10:23 Follow up: Response: No adverse reaction; Marked relief of symptoms; Cardiac rhythm is em unchanged 10:20 Drug: NS 0.9% 1000 ml Route: IV; Rate: 1000 ml; Site: right hand; em 12:15 Follow up: IV Status: Completed infusion; IV Intake: 1000ml em 10:34 Not Given (Physician Discretion): Lopressor 5 mg IVP once; Hold for SBP <100 or HR <60. em 10:52 Drug: Cefepime 2 grams Route: IVPB; Rate: 200 ml/hr; Infused Over: 30 mins; Site: right em hand; 11:45 Follow up: Response: No adverse reaction; IV Status: Completed infusion; IV Intake: em 100ml 12:02 Not Given (Physician Discretion): Lovenox 1 mg/kg Sub-Q once jr8 12:02 Not Given (Physician Discretion): Aspirin Chewable Tablet 324 mg PO once; 81 mg tablets jr8 x 4 12:15 Drug: vancoMYCIN 1 grams Route: IVPB; Infused Over: 2 hrs; Site: right hand; em 16:53 Follow up: IV Status: Completed infusion; IV Intake: 250ml em 12:37 Drug: Eliquis 5 mg Route: PO; em 13:28 Follow up: Response: No adverse reaction em 12:37 Drug: traMADol 50 mg Route: PO; em 12:37 Drug: Sotalol 80 mg Route: PO; em 13:30 Follow up: Response: No adverse reaction; Cardiac rhythm changed em Intake: 11:45 IV: 100ml; Total: 100ml. em 12:15 IV: 1000ml; Total: 1100ml. em 16:53 IV: 250ml; Total: 1350ml. em Outcome: 12:55 Decision to Hospitalize by Provider. kimberlee 16:39 Admitted to Med/surg accompanied by tech, via wheelchair, room 404, with chart, Report em called to ZUHAIR Dobbins 16:39 Condition: stable 16:39 Instructed on the need for admit, Demonstrated understanding of instructions. 16:57 Patient left the ED. em Signatures: Dispatcher [employer] Freddie Khan RN RN em Royce Nolen PA PA Loreto Woodard [facility] Corrections: (The following items were deleted from the chart) 10:38 10:23 Reassessment: rate slowed from 130 to low 100's after 2.5 mg of Lopressor em em 13:28 13:18 BP 93 / 50; Pulse 56bpm; Resp 24bpm; Pulse Ox 100% RA; [place] [id number]
--- NOTE | 2020-03-31 12:55 | EDPHYS ---
Physician Documentation [facility] Name: Tony Zayas Jr Age: 84 yrs Sex: Male : 1935 Arrival Date: 03/31/2020 Time: 09:53 Bed 3 Private MD: ED Physician Lc Pulido HPI: 03/31 11:10 This 84 yrs old Male presents to ER via EMS with complaints of weakness. jr8 11:10 Patient stated that he felt very weak this morning. Home Health aid stated that he jr8 could barely assist himself with getting up. Was not acting like himself with his morning routine. Stated that he was up all night. EMS was called this morning. Patient found to be tachycardic upon arrival but in no acute distress . Severity of symptoms: At their worst the symptoms were moderate. It is unknown whether or not the patient has had similar symptoms in the past. The patient has not recently seen a physician. Historical: - Allergies: 10:09 Morphine; em 10:09 Sulfa (Sulfonamide Antibiotics); em 10:09 TRIMETHOPRIM; em 10:09 flu shot; em 10:09 Bextra; em 10:09 Clindamycin; em 10:09 Doxycycline; em 10:09 Pneumovax 23; em - Home Meds: 10:09 aspirin 81 mg Oral chew 1 tab once daily [Active]; Vitamin C Oral daily [Active]; em furosemide 20 mg Oral tab 1 tab once daily [Active]; lisinopril 10 mg Oral tab 1 tab once daily [Active]; 13:20 Lasix 40 mg Oral tab 1 tab once daily [Active]; amitriptyline-chlordiazepoxide 12.5-5 em mg oral tab [Active]; lisinopril 10 mg Oral tab [Active]; Eliquis 2.5 mg oral tab 1 tab in the AM [Active]; 13:22 pentoxifylline 400 mg oral TbER [Active]; em - PMHx: 10:09 Arthritis; BPH; Diabetes - IDDM; Hypertension; wound care; em - PSHx: 10:09 aortic valve sx; colon sx; colon cancer; left hip; right hip; right toe amputation; em - Immunization history:: Adult Immunizations not up to date. - Social history:: Smoking status: Patient denies any tobacco usage or history of. ROS: 11:10 Eyes: Negative for injury, pain, redness, and discharge, ENT: Negative for injury, jr8 pain, and discharge, Neck: Negative for injury, pain, and swelling, Cardiovascular: Negative for chest pain, palpitations, and edema, Abdomen/GI: Negative for abdominal pain, nausea, vomiting, diarrhea, and constipation, Back: Negative for injury and pain, MS/Extremity: Negative for injury and deformity, Skin: Negative for injury, rash, and discoloration, Neuro: Negative for headache, numbness, tingling, and seizure. Weakness 11:10 Constitutional: Positive for fatigue, malaise. 11:10 Respiratory: Positive for shortness of breath, Negative for cough, dyspnea on exertion, sputum production, wheezing. Exam: 11:10 Eyes: Pupils equal round and reactive to light, extra-ocular motions intact. Lids and jr8 lashes normal. Conjunctiva and sclera are non-icteric and not injected. Cornea within normal limits. Periorbital areas with no swelling, redness, or edema. ENT: Nares patent. No nasal discharge, no septal abnormalities noted. Tympanic membranes are normal and external auditory canals are clear. Oropharynx with no redness, swelling, or masses, exudates, or evidence of obstruction, uvula midline. Mucous membranes moist. Neck: Trachea midline, no thyromegaly or masses palpated, and no cervical lymphadenopathy. Supple, full range of motion without nuchal rigidity, or vertebral point tenderness. No Meningismus. Respiratory: Lungs have equal breath sounds bilaterally, clear to auscultation and percussion. No rales, rhonchi or wheezes noted. No increased work of breathing, no retractions or nasal flaring. Abdomen/GI: Soft, non-tender, with normal bowel sounds. No distension or tympany. No guarding or rebound. No evidence of tenderness throughout. Back: No spinal tenderness. No costovertebral tenderness. Full range of motion. MS/ Extremity: Pulses equal, no cyanosis. Neurovascular intact. Full, normal range of motion. 11:10 Cardiovascular: Rate: tachycardic, Rhythm: irregular, Pulses: Pulses are 2+ in right radial artery and left radial artery. Heart sounds: normal, normal S1and S2, Edema: is not appreciated. 11:10 Skin: Patient has bilateral heel ulcers and amputation of right third toe noted. Mild erythema with eschar present. no diffuse cellulitis . 13:33 ECG was reviewed by the Attending Physician. jr8 Vital Signs: 09:53 BP 95 / 80; Pulse 130; Resp 24; Temp 97.6; Pulse Ox 98% on R/A; Height 6 ft. 0 in. em (182.88 cm); 10:11 BP 109 / 53; Pulse 130; Resp 26; Pulse Ox 99% on R/A; em 10:27 BP 95 / 57; Pulse 102; Resp 18; Pulse Ox 99% on R/A; em 11:27 Weight 80 kg; em 11:56 BP 108 / 70; Pulse 129; Resp 20; Pulse Ox 98% on R/A; em 13:18 BP 93 / 50; Pulse 90; Resp 24; Pulse Ox 100% on R/A; mh5 14:00 BP 107 / 48; Pulse 94; Resp 24; Pulse Ox 97% on R/A; em 15:00 BP 95 / 52; Pulse 94; Resp 22; Pulse Ox 98% on R/A; em 16:00 BP 94 / 60; Pulse 89; Resp 18; Pulse Ox 99% on R/A; em 11:27 Body Mass Index 23.92 (80.00 kg, 182.88 cm) em MDM: 10:03 Patient medically screened. jr8 12:42 Data reviewed: vital signs, nurses notes, lab test result(s), EKG, radiologic studies, jr8 plain films. Data interpreted: Pulse oximetry: on room air is 98 %. Interpretation: normal. Counseling: I had a detailed discussion with the patient and/or guardian regarding: the historical points, exam findings, and any diagnostic results supporting the discharge/admit diagnosis, lab results, radiology results, the need for further work-up and treatment in the hospital. ED course: spoke with Dr. Mayo. Wants to start patient on Sotalol 80mg BID. Dr. Gunter out of town and will go to hospitalist . 03/31 10:06 Order name: Basic Metabolic Panel; Complete Time: 11:20 8 03/31 10:06 Order name: Blood Culture Adult (2) 8 03/31 10:06 Order name: CBC with Diff jr8 03/31 10:06 Order name: Ckmb; Complete Time: 11:20 [facility] 03/31 10:06 Order name: CPK; Complete Time: 11:20 [facility] 03/31 10:06 Order name: Lactate; Complete Time: 11:20 [facility] 03/31 10:06 Order name: LFT's; Complete Time: 11:20 [facility] 03/31 10:06 Order name: Lipase; Complete Time: 11:20 [facility] 03/31 10:06 Order name: Procalcitonin; Complete Time: 12:37 [facility] 03/31 10:06 Order name: Protime (+inr); Complete Time: 10:40 [facility] 03/31 10:06 Order name: Ptt, Activated; Complete Time: 10:40 [facility] 03/31 10:06 Order name: Troponin (emerg Dept Use Only); Complete Time: 11: [facility] 03/31 10:06 Order name: Urine Microscopic Only [facility] 03/31 10:53 Order name: Manual Differential; Complete Time: 11:08 EDMS 03/31 10:06 Order name: Chest Single View XRAY; Complete Time: 10:42 [facility] 03/31 10:06 Order name: Accucheck; Complete Time: 10:29 [facility] 03/31 10:06 Order name: Cardiac monitoring; Complete Time: 10:30 [facility] 03/31 14:10 Order name: Lactate Sepsis 2 HR Follow-up; Complete Time: 14:30 EDMS 03/31 14:48 Order name: EKG Electrocardiogram EDDC 03/31 14:48 Order name: EKG Electrocardiogram EDDC 03/31 10:06 Order name: EKG - Nurse/Tech; Complete Time: 10:30 [facility] 03/31 10:06 Order name: IV Saline Lock - Large Bore; Complete Time: 10:30 [facility] 03/31 10:06 Order name: Labs collected and sent; Complete Time: 10:30 [facility] 03/31 10:06 Order name: O2 Per Protocol; Complete Time: 10:30 [facility] 03/31 10:06 Order name: O2 Sat Monitoring; Complete Time: 10:29 EC:33 Rate is 114 beats/min. Rhythm is irregularly irregular, A fib. Extreme Right axis jr8 deviation noted. QRS interval is prolonged at 158 msec. QT interval is normal at 416 msec. No Q waves. T waves are Normal. No ST changes noted. Clinical impression: Atrial Fibrillation. Interpreted by me. Reviewed by me. Administered Medications: 10:18 Drug: Lopressor 2.5 mg Route: IVP; Site: right hand; em 10:23 Follow up: Response: No adverse reaction; Marked relief of symptoms; Cardiac rhythm is em unchanged 10:20 Drug: NS 0.9% 1000 ml Route: IV; Rate: 1000 ml; Site: right hand; em 12:15 Follow up: IV Status: Completed infusion; IV Intake: 1000ml em 10:34 Not Given (Physician Discretion): Lopressor 5 mg IVP once; Hold for SBP <100 or HR <60. em 10:52 Drug: Cefepime 2 grams Route: IVPB; Rate: 200 ml/hr; Infused Over: 30 mins; Site: right em hand; 11:45 Follow up: Response: No adverse reaction; IV Status: Completed infusion; IV Intake: em 100ml 12:02 Not Given (Physician Discretion): Lovenox 1 mg/kg Sub-Q once jr8 12:02 Not Given (Physician Discretion): Aspirin Chewable Tablet 324 mg PO once; 81 mg tablets jr8 x 4 12:15 Drug: vancoMYCIN 1 grams Route: IVPB; Infused Over: 2 hrs; Site: right hand; em 16:53 Follow up: IV Status: Completed infusion; IV Intake: 250ml em 12:37 Drug: Eliquis 5 mg Route: PO; em 13:28 Follow up: Response: No adverse reaction em 12:37 Drug: traMADol 50 mg Route: PO; em 12:37 Drug: Sotalol 80 mg Route: PO; em 13:30 Follow up: Response: No adverse reaction; Cardiac rhythm changed em Disposition: 04/01 08:22 Co-signature as Attending Physician, Lc Pulido MD I agree with the assessment and amanda plan of care. Disposition: 03/31/20 12:55 Hospitalization ordered by Dickson Gillespie for Inpatient Admission. Preliminary diagnosis are Atrial fibrillation and flutter - with RVR, Non-ST elevation (NSTEMI) myocardial infarction. - Bed requested for Telemetry/MedSurg (Inpatient). - Status is Inpatient Admission. em - Condition is Stable. - Problem is new. - Symptoms have improved. Signatures: Dispatcher [employer] Lc Sheth MD MD cha Munoz, Edgar, RN RN em Royce Nolen PA PA jr8 Regina Russell Corrections: (The following items were deleted from the chart) 03/31 14:53 12:55 Hospitalization Ordered by Dickson Gillespie MD for Inpatient Admission. Preliminary eb diagnosis is Atrial fibrillation and flutter - with RVR; Non-ST elevation (NSTEMI) myocardial infarction. Bed requested for Telemetry/MedSurg (Inpatient). Status is Inpatient Admission. Condition is Stable. Problem is new. Symptoms have improved. jr8 16:57 14:53 03/31/2020 12:55 Hospitalization Ordered by Dickson Gillespie MD for Inpatient em Admission. Preliminary diagnosis is Atrial fibrillation and flutter - with RVR; Non-ST elevation (NSTEMI) myocardial infarction. Bed requested for Telemetry/MedSurg (Inpatient). Status is Inpatient Admission. Condition is Stable. Problem is new. Symptoms have improved. eb
--- NOTE | 2020-03-31 14:33 | P.HP ---
Certification for Inpatient Patient admitted to: Inpatient With expected LOS: >2 Midnights Practitioner: I am a practitioner with admitting privileges, knowledge of patient current condition, hospital course, and medical plan of care. Services: Services provided to patient in accordance with Admission requirements found in Title 42 Section 412.3 of the Code of Federal Regulations Patient History Date of Service: 03/31/20 Primary Care Provider: Dr. Gunter Reason for admission: AFib with RVR History of Present Illness: 84yo male brought to the ED via EMS due to lymphoma AFib with RVR. Family report home health nurse to stated patient was unresponsive and noted to have tachycardia and hypotension and called 911. In the state patient is been more restless and not acting like himself for the past day. Patient reports generalized weakness, fatigue, continued shortness of breath. He does not recall the events from earlier this morning. He has been taking his medication as prescribed. He denies fevers/chills, and no change in his chronic cough, no abdominal pain, no nausea/vomiting, no dysuria, no diarrhea, no new rashes or lesions, and no new erythema. In the ED, mild leukocytosis (12.1), mild hyponatremia, elevated creatinine (2.32), elevated troponin 3.95, lactic acidosis of 2.4, negative pro calcitonin. CXR: Chronic pleural parenchymal opacification right base no new or progressive findings. Cardiology was consulted who recommended starting patient on sotalol, continue Eliquis. He received vanc and cefepime in the ED. Allergies clindamycin Allergy (Verified 02/13/20 16:23) Hives doxycycline Allergy (Verified 02/13/20 16:23) Hives sulfamethoxazole [From Bactrim] Allergy (Verified 06/05/17 08:19) Hives/Rash trimethoprim [From Bactrim] Allergy (Verified 06/05/17 08:19) Hives/Rash valdecoxib [From Bextra] Allergy (Verified 02/25/20 23:05) Hives/Rash hydrocodone Adverse Reaction (Verified 03/01/20 13:12) Hives hydromorphone Adverse Reaction (Verified 03/01/20 13:12) Hives Home Medications: Promethazine HCl/Codeine [Promethazine-Codeine Syrup] 5 ml PO Q6HP PRN #180 syrup 08/01/14 Amitriptyline [Elavil*] 50 mg PO BEDTIME 02/25/20 Aspirin Chewable [Aspirin Chewable*] 1 tab PO DAILY 02/25/20 Carvedilol [Coreg] 1 tab PO BID 02/25/20 Cinnamon Bark [Cinnamon] 1 tab PO DAILY 02/25/20 Furosemide [Lasix*] 20 mg PO BID 02/25/20 Glucosamine/Chondr James A Sod [Osteo Bi-Flex Caplet] 1 tab PO DAILY 02/25/20 Insulin Degludec [Tresiba Flextouch U-200] 24 units SQ DAILY 02/25/20 Iron 1 tab PO DAILY 02/25/20 Iron/FA/Vit B-Com W/C [Hemocyte Plus*] 1 tab PO DAILY 02/25/20 Lisinopril [Zestril] 10 mg PO DAILY 02/25/20 Mecobalamin [B12 Active] 500 mg PO DAILY 02/25/20 Multivit-Min/Iron/Folic Acid/K [Multi-Day Plus Minerals Tablet] 1 tab PO DAILY 02/25/20 Turmeric/Turmeric Root Extract [Turmeric 500 mg Capsule] 1 tab PO DAILY 02/25/20 Vit A/Vit C/Vit E/Zinc/Copper [Preservision Areds Softgel] 1 tab PO BID 02/25/20 Amox/Clavulanate [Augmentin 875-125 Tab] 875 mg PO BID 10 Days #20 tab 03/05/20 Metoprolol Tartrate [Lopressor] 25 mg PO BID 60 Days #30 tab 03/05/20 - Past Medical/Surgical History Diabetic: Yes -: DM -: HTN -: [place] -: Skin CA -: Incontinence -: arthritis -: bph -: 2011 aortic valve replacement -: 2017 colon surgery -: cataract 2014 -: ctr [id number] -: left hip replaced 2010 -: right hip 2005 -: left thumb 2003 -: right shoulder 2001 - Family History Father -: Diabetes, Cancer Notes: cancer in throat Mother -: Hypertension, Diabetes, Stroke Sister -: Diabetes, Cancer, Kidney disease Notes: had dialysis Brother -: Diabetes - Social History Alcohol use: No CD- Drugs: No Caffeine use: Yes Review of Systems 10-point ROS is otherwise unremarkable Physical Examination - Physical Exam General: Alert, Oriented x2, Other (Sleepy, easily arousable) HEENT: Sclerae nonicteric Respiratory: Clear to auscultation bilaterally, Diminished Cardiovascular: Edema, Irregular heart rate/rhythm, Systolic murmur Gastrointestinal: Soft and benign, Non-distended, No tenderness Musculoskeletal: No erythema, No tenderness Integumentary: Other (Pressure ulcers on bilateral posterior ankles, no cell ulitis, no drainage) Neurological: Normal speech, Normal affect - Studies Laboratory Data (last 24 hrs) 03/31/20 10:17: PT 12.7 H, INR 1.08, APTT 25.3 03/31/20 10:17: WBC 12.1 H D, Hgb 10.9 L, Hct 32.4 L, Plt Count 193 03/31/20 10:17: Sodium 134 L, Potassium 5.0, BUN 91 H, Creatinine 2.32 H, Glucose 204 H, Total Bilirubin 0.6, AST 39 H, ALT 24, Alkaline Phosphatase 102, Lipase 18 L Assessment and Plan - Advance Directives Does patient have a Living Will: No Does patient have a Durable POA for Healthcare: Yes - Code Status/Comfort Care Code Status: Do Not Attempt Resuscitat Physician Review Additional Text: AFib with RVR ADEOLA on CKD Hypotension Diabetes mellitus type 2, insulin dependent Prior [place], s/p CABG, AoV replacement BPH AFib with RVR -cardiology consulted, recommended switching metoprolol to sotalol 80 mg b.i.d. -elevated troponin, likely demand ischemia in setting of AFib with RVR, continue to trend -monitor on telemetry -continue Eliquis ADEOLA on CKD (baseline creatinine of 1.6 - 1.7) -unclear etiology, check urine studies -Creatinine at 2.3 -Consult nephrology Hypotension -received Lopressor in the ED, will monitor closely -Received 1 L fluid bolus in the ED -likely due to AFib with RVR and Lopressor -continue to monitor -obtain home medications and restart as appropriate Time Spent Managing Pts Care (In Minutes): 55
[2020-03-31] MEDS: INSULIN -REGULAR HUMAN 50 UNIT/0.5 ML ML SQ SCH ×2 (16:36→20:31)
[2020-03-31] MEDS: NA CHLORIDE 0.9% 1,000 ML IV SCH (20:27)
[2020-03-31] MEDS: APIXABAN 5 MG TABLET PO SCH (20:28)
[2020-03-31] MEDS: SOTALOL HCL 80 MG TAB PO SCH (20:29)
[2020-03-31 21:44] LABS: Urine Appearance CLEAR; Urine Bilirubin NEGATIVE (NEG); Urine Blood NEGATIVE (NEG); Urine Color YELLOW; Urine Glucose NEGATIVE (NEG); Urine Protein NEGATIVE (NEG); Urine Urobilinogen 0.2 mg/dL (0.2-1.0)
[2020-03-31 21:53] LABS: Urine Microscopic Reflex NO UMIC
[2020-04-01 04:31] LABS: UR PROTEIN 37 mg/dL (<11.9); UR SODIUM 8 mmol/L (27-287)
[2020-04-01 05:13] LABS: Absolute Lymphocytes (CBC) 0.9 K/uL (0.7-4.9); Basophils % 0.5 % (0-1.3); Hematocrit 33.6 % (39.6-49.0); Lymphocytes % 8.5 % (15.3-44.8); MPV 9.1 fL (7.6-11.3); RBC Red Blood Cell Count 3.26 M/uL (4.33-5.43)
[2020-04-01] MEDS: NA CHLORIDE 0.9% 1,000 ML IV SCH ×2 (05:30→22:24)
[2020-04-01] MEDS: SOTALOL HCL 80 MG TAB PO SCH ×2 (05:30→17:11)
[2020-04-01 05:55] VITALS: BMI 4454.3
[2020-04-01 07:24] LABS: Albumin 2.7 g/dL (3.4-5.0); Bilirubin Total 0.6 mg/dL (0.2-1.0); Magnesium 2.6 mg/dL (1.8-2.4); Phosphorus 3.8 mg/dL (2.5-4.9); Potassium 4.5 mmol/L (3.5-5.1); Protein, Total 7.1 g/dL (6.4-8.2)
[2020-04-01] MEDS: INSULIN -REGULAR HUMAN 50 UNIT/0.5 ML ML SQ SCH ×4 (07:30→21:30)
[2020-04-01] MEDS: APIXABAN 5 MG TABLET PO SCH (08:15)
[2020-04-01] MEDS: ACETAMINOPHEN 500 MG TAB PO PRN (14:47)
--- NOTE | 2020-04-01 15:07 | RAD REPORT ---
EXAM DESCRIPTION: RAD - Hip Right 2 View - 04/01/2020 2:52 pm CLINICAL HISTORY: Right hip pain FINDINGS: No fracture or dislocation is seen. Right hip arthroplasty has been performed. Prosthesis is in good position
--- NOTE | 2020-04-01 16:24 | P.PN ---
Subjective Date of Service: 04/01/20 Primary Care Provider: Dr. Gunter Chief Complaint: AFib with RVR Subjective: No new changes (Patient states he feels about the same, remains somewhat sleepy, arousable and able to have a conversation, seems depressed. Patient has had rate control over night. --reporting some right hip pain, and bilateral heel pain, right worse than left. ate breakfast) Review of Systems 10-point ROS is otherwise unremarkable Physical Examination - Vital Signs Temperature: 99.1 F Blood Pressure: 128/71 Pulse: 86 Respirations: 16 Pulse Ox (%): 96 - Physical Exam General: Alert, In no apparent distress HEENT: Sclerae nonicteric Respiratory: Clear to auscultation bilaterally Cardiovascular: Irregular heart rate/rhythm (Afib, HR: 70s) Gastrointestinal: Soft and benign, Non-distended, No tenderness Integumentary: Tenderness/swelling (Tenderness to palpation of R foot (plantar aspect) and along achilles tendon), Other (pressure ulcer on R posterior ankle - along achilles tendon, overlying scab with ~5mm surrounding erythema, +tender to palpation. R plantar aspect of heel with ~2cm dry pressure ulcer. R foot equally warm as R leg, L foot cool to touch) - Studies Microbiology Data (last 24 hrs): 03/31/20 12:33 Nasopharnyx Coronavirus COVID-19 PCR - Final 03/31/20 10:29 Blood - Blood Anaerobic Blood Culture - Final Assessment & Plan Physician Review Additional Text: AFib with RVR ADEOLA on CKD Hypotension Diabetes mellitus type 2, insulin dependent Prior [place], s/p CABG, AoV replacement BPH AFib with RVR -cardiology consulted, switched metoprolol to sotalol 80 mg b.i.d.; achieved rate control, continue sotalol -elevated troponin, discussed with Cardiology, likely demand ischemia in setting of AFib with RVR -continue to monitor on telemetry -continue Eliquis - reviewed with , patient takes 2.5 mg daily ADEOLA on CKD (baseline creatinine of 1.6 - 1.7) -unclear etiology, check urine studies, possibly pre renal -Creatinine improved from 2.3 -> 2.16 -continue IVF at 75 mL/hr -Consulted nephrology Hypotension, resolved -received Lopressor in the ED, will monitor closely -Received 1 L fluid bolus in the ED -likely due to AFib with RVR and Lopressor -continue to monitor Lower extremity wounds -pt follows at wound clinic - sees Dr. Crenshaw - will consult for further evaluation -no discernible abscess, with minimal erythema around pressure ulcer, unclear if would benefit from debridement DM2, insulin dependent -borderline low this morning, only on insulin sliding scale, will continue to monitor (on tresiba at home) -family report difficult to manage hyperglycemia during previous hospitalizations. Code: DNR Dispo: anticipate dc home once improving, still remains sleepy / doesn't look well it seems patient is depressed, family agree - state ever since his CABG he "hasn't been the same". May benefit from home hospice / palliative in near future. Time Spent Managing Pts Care (In Minutes): 35
[2020-04-01] MEDS: MEDIHONEY 44 ML TOPICAL TUBE TOP SCH (16:53)
--- NOTE | 2020-04-01 17:35 | P.CNS ---
Date of Consult: 04/01/20 Reason for Consult: ERLINDA Primary Care Provider: Dr. Gunter Chief Complaint: AFib with RVR History of Present Illness: pt is unable to provide HX , HX obtained from chart AN 84-year-old gentleman with significant past medical history of hypertension, hyperlipidemia, coronary artery disease status post CABG, status post aortic valve replacement, diabetes complicated since 1972 complicated with neuropathy, no retinopathy, chronic kidney disease, baseline creatinine 1.3-1.6 Bun of 60 pt was admitted for AMS and weakness, in ER pt had Afib with RVR , , pt was seen by nephrology last month for ERLINDA , head Erlinda peak Cr 2.3, improved on IVF , he was admitted for foot infection and dicharged on levaquin Review of Systems: Head and Neck: No red eye. No ear pain. GI: No nausea, no vomiting. : No polyuria, no dysuria, no hematuria. Certified Cytotechnologist: Not applicable. Respiratory: No shortness of breath. Cardiovascular: No chest pain. Endocrine: No polydipsia. Skin: No rash. Neuro: AAOx1-2 Musculoskeletal: Has foot pain. Physical exam general: AAOX1-2 tNAD Neck; Supple, No elevated JVD hear: irregular rhythm normal S1,2 no murmur or rub Chest: decreased air entry Abdomen: Soft , Nt Extremities trace edema, feet dressed Acute kidney injury secondary possibly due to dehydration Cr slightly improved improved will order US renal dose meds HTN controlled DM as per primary AMS headCT , no acute findings will consider brain MRI if no improvement Anemia of chronic disease SPEP no monoclonal disease PPI toatl time spent 30min Allergies clindamycin Allergy (Verified 02/13/20 16:23) Hives doxycycline Allergy (Verified 02/13/20 16:23) Hives sulfamethoxazole [From Bactrim] Allergy (Verified 06/05/17 08:19) Hives/Rash trimethoprim [From Bactrim] Allergy (Verified 06/05/17 08:19) Hives/Rash valdecoxib [From Bextra] Allergy (Verified 02/25/20 23:05) Hives/Rash hydrocodone Adverse Reaction (Verified 03/01/20 13:12) Hives hydromorphone Adverse Reaction (Verified 03/01/20 13:12) Hives Home Medications: Promethazine HCl/Codeine [Promethazine-Codeine Syrup] 5 ml PO Q6HP PRN #180 syrup 08/01/14 Carvedilol [Coreg] 1 tab PO BID 02/25/20 Insulin Degludec [Tresiba Flextouch U-200] 30 units SQ DAILY 02/25/20 Lisinopril [Zestril] 10 mg PO DAILY 02/25/20 Metoprolol Tartrate [Lopressor] 25 mg PO BID 60 Days #30 tab 03/05/20 Acetaminophen [Tylenol Arthritis] 2 tab PO Q6H PRN 04/01/20 Amitriptyline HCl 20 tab PO BEDTIME 04/01/20 Apixaban [Eliquis] 2.5 tab PO DAILY 04/01/20 Cyanocobalamin (Vitamin B-12) [Vitamin B-12] 1 tab PO BID 04/01/20 Furosemide [Lasix] 1 tab PO BID 04/01/20 Pentoxifylline 1 tab PO BID 04/01/20 Tramadol HCl [Ultram] 1 tab PO Q6H PRN 04/01/20 - Past Medical/Surgical History Diabetic: Yes -: DM -: HTN -: [place] -: Skin CA -: Incontinence -: arthritis -: bph -: afib -: 2011 aortic valve replacement -: 2018 colon surgery -: cataract 2014 -: ctr [id number] -: left hip replaced 2010 -: right hip 2005 -: left thumb 2003 -: right shoulder 2001 - Family History Father Medical History: Diabetes, Cancer Notes: cancer in throat Mother Medical History: Hypertension, Diabetes, Stroke Sister Medical History: Diabetes, Cancer, Kidney disease Notes: had dialysis Brother Medical History: Diabetes - Social History Alcohol use: No CD- Drugs: No Caffeine use: Yes Place of Residence: Home Physical Examination Temp Pulse Resp BP Pulse Ox 99.1 F 86 16 128/71 96 04/01/20 16:37 04/01/20 16:37 04/01/20 16:37 04/01/20 16:37 04/01/20 16:37
--- NOTE | 2020-04-01 19:24 | CON ---
Date of Consultation: 03/31/2020 Reason For Consultation: New-onset atrial flutter. History Of Present Illness: Mr. Zayas is an 84-year-old white male. He is known to me from previou s office visits and admissions. He was just recently released from the hospital after an episode of cellulitis. When he was in the hospital last time, he did go into atrial fibrillation and he was symone beatrice on metoprolol and he went back to sinus rhythm, but he comes back with rapid atrial fibrillation and flutter, feeling weak, short of breath, and fatigued. Denied any chest pain, nausea, vomiting, d iaphoresis, PND, orthopnea, pedal edema, or syncope. He did have palpitation. Denied any fever or c hills. I had seen him in the office since that episode and he was doing fairly well. He was still o n antibiotics for his cellulitis. When he came into the emergency room, he was noted to be in rapid atrial fibrillation and flutter. He was given IV metoprolol and he went into atrial fibrillation wit h flutter with controlled response. He was started on Eliquis before he had come into the hospital t his time. Past Medical History: Include aortic valve replacement, CABG x1 to the RCA, anemia, chronic diastoli c congestive heart failure that had become systolic recently, history of diabetes, PAD, hypertension. Allergies: HE IS ALLERGIC TO MORPHINE, CLINDAMYCIN, AND BACTRIM. Social History: Positive for him being a DNR. Review of Systems: Negative. Family History: Noncontributory. Medications: Right now includes Eliquis, metoprolol, Trental, insulin, and Lasix. Physical Examination: General: He appears to be very weak, but no specific complaints. He just feels bad overall. Vital Signs: Stable. He was afebrile. His heart rate was 80. HEENT: Negative. Neck: Supple. No bruit, lymphadenopathy, JVD, or thyromegaly. Chest: Clear to auscultation and percussion. Cardiac: Regular rhythm and rate without any murmurs, gallops, or rubs. Abdomen: Obese, benign. Extremities: Some edema bilaterally. No clubbing. No cyanosis. Diagnostic Data: His troponin was 3.95. His glucose was 190, his creatinine of 2.16. EKG showed at rial flutter. Chest x-ray is negative. Echocardiogram recently showed an ejection fraction of 35% t o 40% with normal aortic valve function. Impression And Plan: 1.Paroxysmal atrial fibrillation and flutter, unresponsive to metoprolol. We will put him on sotalo l 80 b.i.d. We will continue Eliquis. No reason for another echocardiogram at this point. 2.Status post aortic valve replacement, stable. 3.Coronary artery disease, status post coronary artery bypass graft. I am not so sure what to make out of the elevated troponin, but it may be secondary to his recent infection, cellulitis, and atrial fibrillation. He is a do not resuscitate and I do not plan to do another catheterization on him at this point. I think his social status needs to be discussed in detail by Dr. Gunter and his family. 4.His other issues including chronic systolic congestive heart failure, anemia, diabetes, peripheral artery disease, and hypertension seemed to be stable at this point. I will continue to follow him. DENYS/STEPHAN Voice ID: [id number] Report ID: [id number]
[2020-04-01] MEDS ORDERED: AMITRIPTYLINE 10 MG TAB PO SCH (21:00)
[2020-04-01] MEDS: CYANOCOBALAMIN 1,000 MCG TAB PO SCH (21:29)
[2020-04-01] MEDS: PENTOXIFYLLINE ER 400 MG TAB PO SCH (21:30)
[2020-04-01] MEDS: AMITRIPTYLINE 50 MG TAB PO SCH (21:30)
[2020-04-01] MEDS: APIXABAN 2.5 MG TABLET PO SCH (21:30)
--- NOTE | 2020-04-01 21:45 | PN ---
Date of Progress Note: 04/01/2020 Mr. Zayas is an 84-year-old white male. I am seeing him today on 04/01/2020 in followup. He has a history of CABG, AVR, chronic systolic congestive heart failure, anemia, diabetes, PAD, and hypertens ion. He came in with rapid flutter, was placed on sotalol 80 b.i.d. He remained in atrial flutter a t about a rate of 70 to 80. He is asymptomatic from a cardiac standpoint, continues to feel weak, fa tigued, tired, appeared to be very depressed. He has elevated creatinine of 2.16. He is presently o n Eliquis, sotalol, Trental, insulin, and Lasix. We will continue the present regimen. His rate is controlled. I am comfortable with him going home after receiving 3 dosages, however, I think his soc ial disposition needs to be discussed with Dr. Gunter and his family. The patient is a do not resus citate and I do not plan any invasive cardiac workup on him at this point. DENYS/STEPHAN Voice ID: [id number] Report ID: [id number]
[2020-04-02 06:28] LABS: Absolute Lymphocytes (CBC) 0.6 K/uL (0.7-4.9); Basophils % 0.4 % (0-1.3); Hematocrit 28.4 % (39.6-49.0); Lymphocytes % 6.8 % (15.3-44.8); MPV 8.6 fL (7.6-11.3); RBC Red Blood Cell Count 2.78 M/uL (4.33-5.43)
[2020-04-02 06:40] LABS: Magnesium 2.4 mg/dL (1.8-2.4); Potassium 4.3 mmol/L (3.5-5.1)
[2020-04-02] MEDS: INSULIN -REGULAR HUMAN 50 UNIT/0.5 ML ML SQ SCH ×4 (07:30→21:03)
--- NOTE | 2020-04-02 07:47 | EKG ---
Test Date: 2020-03-31 Test Time: 10:44:36 Helpdesk Specialist: JASON MEASUREMENT RESULTS: Intervals: Rate: 114 [place]: QRSD: 158 QT: 416 QTc: 573 [place]: P: NC: QRS: 263 T: 76 INTERPRETIVE STATEMENTS: Atrial fibrillation with rapid ventricular response Right superior axis deviation Nonspecific intraventricular block Abnormal ECG Compared to ECG 03/31/2020 09:56:21 Fusion complex(es) no longer present Wide-QRS tachycardia no longer present Electronically Signed On 04-02-20 07:41:28 AMERICAN [employer]DIAN STUDIES PROFESSOR by Amadou Mayo
--- NOTE | 2020-04-02 07:47 | EKG ---
Test Date: 2020-03-31 Test Time: 09:56:21 Freezer Laboratory Technician: JASON MEASUREMENT RESULTS: Intervals: Rate: 129 [place]: QRSD: 158 QT: 402 QTc: 588 [place]: P: [place]: QRS: 244 T: 90 INTERPRETIVE STATEMENTS: Wide QRS tachycardia with fusion complexes Right superior axis deviation Nonspecific intraventricular block Abnormal ECG Compared to ECG 03/04/2020 15:12:03 Fusion complex(es) now present Wide-QRS tachycardia now present Right superior axis now present Atrial flutter no longer present Left-axis deviation no longer present Electronically Signed On 04-02-20 07:41:31 LIQUOR GRINDING MILL OPERATOR by Amadou Mayo
[2020-04-02] MEDS ORDERED: D50W 25 GM/50 ML SYRINGE IV PRN (08:07)
[2020-04-02] MEDS: SOTALOL HCL 80 MG TAB PO SCH ×2 (08:25→16:44)
--- NOTE | 2020-04-02 08:25 | P.PN ---
Subjective Date of Service: 04/02/20 Primary Care Provider: Dr. Gunter Chief Complaint: AFib with RVR Subjective: Improving (Feeling a little better this morning, more awake and alert. Complaining of right foot pain, states has been the same for few weeks) Physical Examination - Vital Signs Temperature: 96.9 F Blood Pressure: 130/60 Pulse: 61 Respirations: 18 Pulse Ox (%): 98 - Physical Exam General: Alert, In no apparent distress, Oriented x3 HEENT: Sclerae nonicteric Respiratory: Clear to auscultation bilaterally Cardiovascular: Irregular heart rate/rhythm Gastrointestinal: Soft and benign, Non-distended, No tenderness Integumentary: Other (b/l lower extremities with dressing in place) Neurological: Normal speech - Studies Microbiology Data (last 24 hrs): 03/31/20 12:33 Nasopharnyx Coronavirus COVID-19 PCR - Final 03/31/20 10:29 Blood - Blood Anaerobic Blood Culture - Final Assessment & Plan Physician Review Additional Text: AFib with RVR ADEOLA on CKD Hypotension Diabetes mellitus type 2, insulin dependent Prior [place], s/p CABG, AoV replacement Anemia of chronic disease BPH AFib with RVR -cardiology consulted, switched metoprolol to sotalol 80 mg b.i.d.; achieved rate control, continue sotalol -elevated troponin, discussed with Cardiology, likely demand ischemia in setting of AFib with RVR, no plans for further evaluation / procedures -continue telemetry -continue Eliquis - reviewed with , patient takes 2.5 mg daily ADEOLA on CKD (baseline creatinine of 1.6 - 1.7) -unclear etiology, nephrology consulted -Creatinine improved from 2.3 -> 2.16 -> 1.75 -improved with IVF hydration, receiving NS @75ml/hr Hypotension, resolved -received Lopressor in the ED, and 1 L fluid bolus in ED -likely due to AFib with RVR, lopressor, and dehydration Lower extremity wounds -pt follows at wound clinic - sees Dr. Crenshaw - consulted for further evaluation -no discernible abscess, with minimal erythema around pressure ulcer, unclear if would benefit from debridement DM2, insulin dependent -on insulin sliding scale (moderate) will decrease to low, glc have been ok / borderline low (on tresiba at home) -family report difficult to manage hyperglycemia during previous hospitalizations. Code: DNR Dispo: anticipate dc home in 24-48hrs, slowly improving it seems patient is depressed, family agree - state ever since his CABG he "hasn't been the same". May benefit from home hospice / palliative in near future. Time Spent Managing Pts Care (In Minutes): 35
[2020-04-02] MEDS: APIXABAN 2.5 MG TABLET PO SCH ×2 (08:26→21:01)
[2020-04-02] MEDS: PENTOXIFYLLINE ER 400 MG TAB PO SCH ×2 (08:26→21:24)
[2020-04-02] MEDS: CYANOCOBALAMIN 1,000 MCG TAB PO SCH ×2 (08:26→21:01)
[2020-04-02] MEDS: NA CHLORIDE 0.9% 1,000 ML IV SCH (08:31)
[2020-04-02] MEDS ORDERED: APIXABAN 5 MG TABLET PO SCH (09:00)
[2020-04-02] MEDS ORDERED: D5 0.45 NS 1,000 ML IV SCH (09:00)
[2020-04-02] MEDS ORDERED: APIXABAN 2.5 MG TABLET PO SCH (09:00)
[2020-04-02] MEDS ORDERED: COLLAGENASE 30 GM OINTMENT TOP SCH (09:00)
[2020-04-02] MEDS ORDERED: FUROSEMIDE 20 MG/ 2ML VIAL IV ONE (09:04)
[2020-04-02] MEDS: MEDIHONEY 44 ML TOPICAL TUBE TOP SCH (09:37)
--- NOTE | 2020-04-02 09:53 | RAD REPORT ---
EXAM DESCRIPTION: Nicole Single View04/02/2020 9:28 am CLINICAL HISTORY: Shortness breath COMPARISON: February 2020 FINDINGS: Small right pleural effusion or thickening. Mild right basilar atelectasis The heart is mildly enlarged. Postsurgical changes involve the chest.
[2020-04-02] MEDS ORDERED: LEVALBUTEROL 0.63 MG/3 ML NEB NEB ONE (11:06)
--- NOTE | 2020-04-02 11:46 | CON ---
Date of Consultation: 04/01/2020 Reason For Consultation: Wounds on the lower extremity. History Of Present Illness: The patient is an 84-year-old gentleman with multiple medical problems, came to the emergency room with AFib with RVR and he has multiple wounds in his lower extremity, most ly arterial in nature. He was following in the wound healing center. He had gangrenous changes of h is right second toe, which was partially amputated by me about a month or so ago and that wound had t urned black, but it did not appear to be infected. There is no erythema or pus and so we were treati ng it with local wound care as there is a high risk for any major surgery. He was in his usual state of health until he started having generalized weakness, fatigue, and difficulty breathing with short ness of breath and on workup, he was found to have RVR with AFib, and I was asked to help manage and take care of the wounds themselves. Review of Systems: Otherwise unremarkable. Past Medical History: Significant for diabetes, hypertension, [place], skin cancer, incontinence. Past Surgical History: Aortic valve replacement, colon surgery, left hip surgery, right hip surgery, right shoulder surgery, left thumb surgery. Allergies: INCLUDE CLINDAMYCIN, DOXYCYCLINE, SULFA, TRIMETHOPRIM, HYDROCODONE, DILAUDID, . Family History: Significant for hypertension, diabetes, kidney disease. Social History: The patient currently does not smoke or drink. Physical Examination: Vital Signs: Stable. He is afebrile. General: He is awake, alert, oriented x3. Head and Neck: He is having a little shortness of breath right now. He had some gurgling sound. He has Lasix ordered, has not been given yet. Otherwise, no masses. No JVD. Chest: Clear. Heart: S1 and S2. Abdomen: Soft. Extremities: The wound reveals the right second toe area to have a 2.3 x 2.1 cm area of a grade 3 di abetic foot ulcer. On the right posterior ankle, there is a 2.4 x 1.4 x 0.1 black eschar, grade 2 di abetic ulcer. On the right lateral foot, there is a grade 2 diabetic ulcer, 1.2 x 0.9 x 0.1 cm. The right heel has 0.5 x 0.2 x 0.1 cm grade 2 ulcer. These are secondary to pressure and arterial disea se. There is no surrounding erythema and there is no pus. Laboratory Data: White count is normal now. He does have a slight left shift. INR is 1.08. Chemis try reviewed. BUN is 93, creatinine is 1.75. Assessment: An 84-year-old gentleman with multiple medical problems with atrial fibrillation, rapid ventricular rate, probably congestive heart failure and also multiple wounds on the lower extremity. Recommendations: Heart management for the medical and cardiology. As far as the wound is concerned, collagenase to the area as ordered. The hospital does not have collagenase right now, therefore Med ihoney has been utilized and he can follow up with me upon discharge in the Wound [facility]aling Center. No need for any acute surgical intervention at this time. Plan of care discussed with Dr. Gillespie and naomie barry patient. /MODL Voice ID: [id number] Report ID: [id number]
--- NOTE | 2020-04-02 11:47 | P.PN ---
Subjective Date of Service: 04/02/20 Primary Care Provider: Dr. Gunter Chief Complaint: AFib with RVR pt is unable to provide HX , HX obtained from chart AN 84-year-old gentleman with significant past medical history of hypertension, hyperlipidemia, coronary artery disease status post CABG, status post aortic valve replacement, diabetes complicated since 1972 complicated with neuropathy, no retinopathy, chronic kidney disease, baseline creatinine 1.3-1.6 Bun of 60 pt was admitted for AMS and weakness, in ER pt had Afib with RVR , , pt was seen by nephrology last month for ERLINDA , head Erlinda peak Cr 2.3, improved on IVF , Today more alert had wheezes this morning , IVF stopped , given lasix X1 Cr improved but Bun still elevated , pt have chronic disproportionate Bun.RC which is likely due to low muscle mass F/U US , SPEP and UPEP Review of Systems: Head and Neck: No red eye. No ear pain. GI: No nausea, no vomiting. : No polyuria, no dysuria, no hematuria. Work Order Detailer: Not applicable. Respiratory: No shortness of breath. Cardiovascular: No chest pain. Endocrine: No polydipsia. Skin: No rash. Neuro: AAOx1-2 Musculoskeletal: Has foot pain. Physical exam general: AAOX1-2 tNAD Neck; Supple, No elevated JVD hear: irregular rhythm , bradycardia normal S1,2 no murmur or rub Chest: decreased air entry Abdomen: Soft , Nt Extremities trace edema, feet dressed A/P Acute kidney injury secondary possibly due to dehydration Cr slightly improved improved will order US renal dose meds HTN controlled DM had hypoglycemic episode insulin reduced AMS head CT , no acute findings will consider brain MRI if no improvement Anemia of chronic disease SPEP no monoclonal disease PPI total time spent 30min Physical Examination - Vital Signs Temperature: 96.9 F Blood Pressure: 130/60 Pulse: 61 Respirations: 18 Pulse Ox (%): 98 - Studies Microbiology Data (last 24 hrs): 03/31/20 12:33 Nasopharnyx Coronavirus COVID-19 PCR - Final 03/31/20 10:29 Blood - Blood Anaerobic Blood Culture - Final Assessment And Plan Physician Review Additional Text: AFib with RVR ERLINDA on CKD Hypotension Diabetes mellitus type 2, insulin dependent Prior ME, s/p CABG, AoV replacement Anemia of chronic disease BPH AFib with RVR -cardiology consulted, switched metoprolol to sotalol 80 mg b.i.d.; achieved rate control, continue sotalol -elevated troponin, discussed with Cardiology, likely demand ischemia in setting of AFib with RVR, no plans for further evaluation / procedures -continue telemetry -continue Eliquis - reviewed with , patient takes 2.5 mg daily ERLINDA on CKD (baseline creatinine of 1.6 - 1.7) -unclear etiology, nephrology consulted -Creatinine improved from 2.3 -> 2.16 -> 1.75 -improved with IVF hydration, receiving NS @75ml/hr Hypotension, resolved -received Lopressor in the ED, and 1 L fluid bolus in ED -likely due to AFib with RVR, lopressor, and dehydration Lower extremity wounds -pt follows at wound clinic - sees Dr. Crenshaw - consulted for further evaluation -no discernible abscess, with minimal erythema around pressure ulcer, unclear if would benefit from debridement DM2, insulin dependent -on insulin sliding scale (moderate) will decrease to low, glc have been ok / borderline low (on tresiba at home) -family report difficult to manage hyperglycemia during previous hospitalizations. Code: DNR Dispo: anticipate dc home in 24-48hrs, slowly improving it seems patient is depressed, family agree - state ever since his CABG he "hasn't been the same". May benefit from home hospice / palliative in near future.
[2020-04-02] MEDS ORDERED: ALBUTEROL 2.5 MG/3 ML NEB SOL NEB ONE (12:00)
--- NOTE | 2020-04-02 15:39 | RAD REPORT ---
EXAM DESCRIPTION: US - Renal Ultrasound-Complete - 04/02/2020 2:36 pm CLINICAL HISTORY: ADEOLA COMPARISON: Renal Ultrasound-Complete dated 02/26/2020 FINDINGS: The right kidney measures 11.1 x 4.2 x 4.4 cm. The left kidney measures 10.1 x 5 point by 4.4 cm. Renal cortical thickness and echogenicity are normal. No hydronephrosis or suspicious renal mass. No bladder wall thickening or mass. No intraluminal stone or mass. IMPRESSION: No hydronephrosis or suspicious renal mass. No other significant findings.
[2020-04-02] MEDS: AMITRIPTYLINE 50 MG TAB PO SCH (21:00)
[2020-04-02] MEDS: ACETAMINOPHEN 500 MG TAB PO PRN (21:01)
[2020-04-03 04:24] LABS: Absolute Lymphocytes (CBC) 0.5 K/uL (0.7-4.9); Basophils % 0.2 % (0-1.3); Hematocrit 28.5 % (39.6-49.0); Lymphocytes % 5.6 % (15.3-44.8); RBC Red Blood Cell Count 2.77 M/uL (4.33-5.43)
[2020-04-03 04:32] LABS: Magnesium 2.3 mg/dL (1.8-2.4); Potassium 4.4 mmol/L (3.5-5.1)
[2020-04-03] MEDS: SOTALOL HCL 80 MG TAB PO SCH ×2 (08:10→16:14)
[2020-04-03] MEDS: CYANOCOBALAMIN 1,000 MCG TAB PO SCH ×2 (08:10→20:27)
[2020-04-03] MEDS: INSULIN -REGULAR HUMAN 50 UNIT/0.5 ML ML SQ SCH ×4 (08:11→20:36)
[2020-04-03] MEDS: PENTOXIFYLLINE ER 400 MG TAB PO SCH ×2 (08:11→20:27)
[2020-04-03] MEDS: APIXABAN 2.5 MG TABLET PO SCH ×2 (08:11→20:27)
[2020-04-03] MEDS: MEDIHONEY 44 ML TOPICAL TUBE TOP SCH (08:12)
[2020-04-03] MEDS: ACETAMINOPHEN 500 MG TAB PO PRN (12:38)
[2020-04-03] MEDS: JUVEN PACKET PO SCH (20:26)
[2020-04-03] MEDS: AMITRIPTYLINE 50 MG TAB PO SCH (20:27)
--- NOTE | 2020-04-03 21:49 | PN ---
Date of Progress Note: 04/03/2020 Reason For Consultation: Acute on chronic kidney injury. Subjective: The patient is an 84-year-old man with significant past medical history of hypertension; hyperlipidemia; coronary artery disease, status post CABG, status post aortic valve replacement; yokasta betes mellitus, complicated with neuropathy, retinopathy; and chronic kidney disease. Baseline creat inine level 1.3 to 1.6. The patient has a history of atrial fibrillation with rapid ventricular resp onse. He is admitted for treatment of atrial fibrillation. Review of Systems: The patient denies complaints. Physical Examination: Lungs: Diminished breath sounds at bases. Heart: S1, S2. Abdomen: Soft, benign. Extremities: Slight edema. Laboratory Data: Hemoglobin 9.4, WBC 9.4, platelet count 190,000. Sodium 137, potassium 4.4, chlori de 106, CO2 23, BUN 92, creatinine 1.74, glucose 297, calcium 8.4. Impression And Plan: 1.Acute on chronic kidney injury. Continue gentle hydration. Monitor electrolytes. Avoid nephroto xic medication. 2.Diabetes mellitus. Avoid metformin. The patient is on insulin. Adjust insulin to prevent hypogl ycemic episode. 3.Altered mental status. CT scan of the head was done, did not show acute findings. 4.Anemia of chronic kidney disease. Serum protein electrophoresis showed no monoclonal gammopathy. 5.Acute kidney injury on chronic kidney disease with elevated BUN-creatinine ratio. Continue hydrat ion and avoid nephrotoxic medication. If renal function does not improve, the patient may need dialysis in near future. TRINIDAD/STEPHAN Voice ID: [id number] Report ID: [id number]
[2020-04-04] MEDS ORDERED: ALBUTEROL 2.5 MG/3 ML NEB SOL NEB PRN (06:36)
[2020-04-04] MEDS ORDERED: GUAIFENESIN/DM 5 ML UCUP PO PRN (06:38)
[2020-04-04] MEDS: INSULIN -REGULAR HUMAN 50 UNIT/0.5 ML ML SQ SCH ×3 (07:30→16:30)
[2020-04-04] MEDS: MEDIHONEY 44 ML TOPICAL TUBE TOP SCH (09:00)
[2020-04-04] MEDS ORDERED: SOTALOL HCL 80 MG TAB PO SCH ×2 (09:00→15:17)
[2020-04-04] MEDS: JUVEN PACKET PO SCH (09:00)
--- NOTE | 2020-04-04 09:00 | PN ---
Addendum: Dictation was for the but dictated today on the . HR/MODL Voice ID: [id number] Report ID: [id number]
--- NOTE | 2020-04-04 09:39 | RAD REPORT ---
EXAM DESCRIPTION: RAD - Chest Single View - 04/04/2020 9:11 am CLINICAL HISTORY: crackles COMPARISON: Portable April 02 TECHNIQUE: AP portable chest image was obtained 04/04/2020 9:11 am . FINDINGS: Left lung field is clear and stable. There is worsening parenchymal opacification in the r ight base since April 02 with costophrenic angle blunting present. Heart size is prominent but sta ble. Sternotomy wires are in place. No measurable pleural effusion and no pneumothorax. No acute bony abnormality seen. No acute aortic findings suspected. IMPRESSION: Small right pleural effusion with slight worsening of the right base parenchymal opacifi cation. In the acute clinical setting, right base pneumonia would be the primary consideration.
[2020-04-04] MEDS: APIXABAN 2.5 MG TABLET PO SCH (09:47)
[2020-04-04] MEDS: ACETAMINOPHEN 500 MG TAB PO PRN (09:47)
[2020-04-04] MEDS: PENTOXIFYLLINE ER 400 MG TAB PO SCH (09:48)
[2020-04-04] MEDS: CYANOCOBALAMIN 1,000 MCG TAB PO SCH (09:48)
--- NOTE | 2020-04-04 10:34 | P.PN ---
Subjective Date of Service: 04/04/20 Primary Care Provider: Dr. 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 No ear pain. GI: No nausea, no vomiting. : No polyuria, no dysuria, no hematuria. International Editorial Producer: Not applicable. Respiratory: No shortness of breath. Cardiovascular: No chest pain. Endocrine: No polydipsia. Skin: No rash. Neuro: AAOx1-2 Musculoskeletal: Has foot pain. Physical exam general: AAOX1-2 tNAD Neck; Supple, No elevated JVD hear: irregular rhythm , bradycardia normal S1,2 no murmur or rub Chest: decreased air entry Abdomen: Soft , Nt Extremities trace edema, feet dressed A/P Acute kidney injury secondary possibly due to dehydration Cr slightly improved improved Disproportionate Bun.Cr is chronic , low cr is due to low body mass renal dose meds HTN controlled DM had hypoglycemic episode insulin reduced AMS possibly due to metabolic enecepahlopathy head CT , no acute findings Anemia of chronic disease SPEP no monoclonal disease PPI total time spent 20min Hospice meeting today Physical Examination - Vital Signs Temperature: 97.5 F Blood Pressure: 131/60 Pulse: 133 Respirations: 19 Pulse Ox (%): 100 - Studies Microbiology Data (last 24 hrs): 03/31/20 12:10 Blood - Blood Anaerobic Blood Culture - Final 03/31/20 12:10 Blood - Blood Gram Stain - Final
[2020-04-04 14:36] VITALS: O2SAT 100
[2020-04-04 16:56] VITALS: BP 190/89; TEMP 97.8
--- NOTE | 2020-04-04 23:33 | PN ---
Date of Progress Note: 04/04/2020 Subjective: The patient is basically status quo. The family has discussed the options with hospice therefore sign off on this program. It was further discussed with his and take care o f during the day. We will continue on his home medicine except for the addition of the so talol to varying rates including atrial flutter and his pulse between the 40s and the 130s. After di scussion with Cardiology, we felt that 40 mg b.i.d. would probably the optimum dose. He will therefo re be discharged on his usual medications with the addition of the sotalol and admitted to hospice. HR/MODL Voice ID: [id number] Report ID: [id number]
--- NOTE | 2020-04-05 07:18 | EKG ---
Test Date: 2020-04-04 Test Time: 14:21:43 Fuel Truck Driver: ANDREY MEASUREMENT RESULTS: Intervals: Rate: 44 PA: QRSD: 152 QT: 460 QTc: 393 [place]: P: 258 PA: QRS: 251 T: 74 INTERPRETIVE STATEMENTS: Atrial flutter Right superior axis deviation Nonspecific intraventricular block Abnormal ECG Compared to ECG 04/04/2020 14:21:14 Right superior axis now present Atrial fibrillation no longer present Ventricular premature complex(es) no longer present Left-axis deviation no longer present Left bundle-branch block no longer present Electronically Signed On 04-05-20 07:17:29 PORTER HEAD by Amadou Mayo
--- NOTE | 2020-04-05 07:18 | EKG ---
Test Date: 2020-04-04 Test Time: 14:21:14 Internet Application Developer: ANDREY MEASUREMENT RESULTS: Intervals: Rate: 89 SC: QRSD: 148 QT: 420 QTc: 511 [place]: P: SC: QRS: -75 T: 57 INTERPRETIVE STATEMENTS: Atrial fibrillation with a competing junctional pacemaker with premature ventricular or aberrantly conducted complexes Left axis deviation Left bundle branch block Abnormal ECG Compared to ECG 03/31/2020 10:44:36 Ventricular premature complex(es) now present Left-axis deviation now present Left bundle-branch block now present Right superior axis no longer present Electronically Signed On 04-05-20 07:17:30 ORDER ENTRY REPRESENTATIVE by Amadou Mayo
--- NOTE | 2020-04-06 11:35 | PN ---
Date of Progress Note: 04/03/2020 The patient has been switched over to sotalol. He was doing fairly well until late this afternoon wh en his pulse dropped down into the 40 to 50 range. The patient continues to be very weak. Could not tolerate physical therapy. Mental status, he is still alert but rather lethargic. Did have 1 episo de of dyspnea, which responded well to the Lasix. In view of the bradycardia, we will hold the sotal ol dose as his atrial flutter at this time seems to be under relatively good control, and depending o n his response to decreasing the sotalol dose, we will determine somewhat as far as his disposition i s concerned. He has also developed a slight cough and this will be evaluated as well. Discussion of disposition was made with the family, who felt that hospice was a possibility and they are suppose t o meet with the family later this afternoon. Otherwise, I think he is a good candidate for a the [facility] home situation at least for the short term. The wound situation according to the surgeon is und er control. So basically vascular and musculoskeletal situation is controlling his disposition. HR/MODL Voice ID: [id number] Report ID: [id number]
== END 2020-04-04 18:49 | disposition hospice, home (50) | DRG 309 ==
LOC: ER 09:40 → ERHOLD 14:33 → 4TH 16:29 → 2ND 04-03 14:59
PROVIDERS: ADMIT Hospitalist; ATTEND Family Medicine
DX: I48.0 Paroxysmal atrial fibrillation (principal); E87.1 Hypo-osmolality and hyponatremia; N17.9 Acute kidney failure, unspecified; I50.32 Chronic diastolic (congestive) heart failure; I13.0 Hypertensive heart and chronic kidney disease with heart failure and stage 1 through stage 4 chronic kidney disease, or unspecified chronic kidney disease; N18.9 Chronic kidney disease, unspecified; E11.22 Type 2 diabetes mellitus with diabetic chronic kidney disease; N40.0 Benign prostatic hyperplasia without lower urinary tract symptoms; I25.2 Old myocardial infarction; I95.9 Hypotension, unspecified; L89.899 Pressure ulcer of other site, unspecified stage; E11.65 Type 2 diabetes mellitus with hyperglycemia; E78.5 Hyperlipidemia, unspecified; I25.10 Atherosclerotic heart disease of native coronary artery without angina pectoris; E11.40 Type 2 diabetes mellitus with diabetic neuropathy, unspecified; E86.0 Dehydration; E11.51 Type 2 diabetes mellitus with diabetic peripheral angiopathy without gangrene; I48.92 Unspecified atrial flutter; D72.829 Elevated white blood cell count, unspecified; Z89.421 Acquired absence of other right toe(s); Z88.7 Allergy status to serum and vaccine; Z79.899 Other long term (current) drug therapy; Z66 Do not resuscitate; Z79.01 Long term (current) use of anticoagulants; Z79.4 Long term (current) use of insulin; Z95.1 Presence of aortocoronary bypass graft; Z96.643 Presence of artificial hip joint, bilateral; Z95.2 Presence of prosthetic heart valve; Z96.611 Presence of right artificial shoulder joint; Z85.828 Personal history of other malignant neoplasm of skin; Z85.038 Personal history of other malignant neoplasm of large intestine; Z88.1 Allergy status to other antibiotic agents; Z79.82 Long term (current) use of aspirin; Z88.5 Allergy status to narcotic agent; Z88.8 Allergy status to other drugs, medicaments and biological substances; Z20.828 Contact with and (suspected) exposure to other viral communicable diseases
CPT/HCPCS: 36415; 71045; 76770; 80048; 80053; 80076; 81003; 82550; 82553; 82570; 82947; 83605; 83690; 83735; 84100; 84145; 84156; 84300; 84484; 85025; 85610; 85730; 87040; 87205; 93005; 94760; 96361; 96365; 96366; 96367; 96375; 97110; 97112; 97161; 97530; 99285; J0692; J1940; J3370; J3590; J7030; U0002